=== PATIENT | male | born 1970 | race Caucasian/White ===

== ENCOUNTER → 2019-11-16 12:11 | Outpatient (BNVA) | payer MEDICAID, SELFPAY | PROVIDERS: Family Provider Nurse Practitioner Family; Visit Provider Nurse Practitioner Family | DX: I10 Essential (primary) hypertension (principal); G47.33 Obstructive sleep apnea (adult) (pediatric); F41.8 Other specified anxiety disorders; E11.65 Type 2 diabetes mellitus with hyperglycemia; Z79.4 Long term (current) use of insulin; K21.9 Gastro-esophageal reflux disease without esophagitis; E78.5 Hyperlipidemia, unspecified; M15.9 Polyosteoarthritis, unspecified; N39.43 Post-void dribbling; R07.89 Other chest pain; G62.9 Polyneuropathy, unspecified | CPT/HCPCS: 80053; 80061; 82044; 83036; 84443; 85025; G0103 ==

== ENCOUNTER → 2020-04-25 10:04 | Outpatient (BNVA) | payer MEDICAID, SELFPAY | PROVIDERS: Family Provider Nurse Practitioner Family; Visit Provider Psychiatry & Neurology Psychiatry | DX: F33.2 Major depressive disorder, recurrent severe without psychotic features (principal); F41.1 Generalized anxiety disorder; F43.10 Post-traumatic stress disorder, unspecified | CPT/HCPCS: 99214 ==

== ENCOUNTER 2021-04-20 23:57 | Emergency (ER) | payer MEDICAID, SELFPAY ==
[2020-04-25 13:32] VITALS: BP 118/73; BMI 23.8
[2021-04-21 00:08] VITALS: BP 132/83; PULSE 102; RESP 19; TEMP 36.8; O2SAT 97; BMI 22.8
--- NOTE | 2021-04-21 00:11 | ED_ITS ---
Documented by User: XENIA Cox 04/21/21 01:45 HPI - Skin/Abscess/Foreign Bdy General: Chief complaint: Skin/Abscess/Foreign Body Stated complaint: abscess on r inner thigh Time Seen by Provider: 04/21/21 00:11 History of Present Illness: HPI narrative: 51-year-old male patient comes in today with tenderness and redness to the right thigh since yesterday. Patient reports yesterday that the wound started draining and he had increasing tenderness and redness today. Patient does have a history of diabetes. Patient appears nontoxic. Patient appears in moderate pain. Review of Systems General: Reports: 10 or more systems reviewed and unremarkable except in HPI and below Skin/Breast: Reports: erythema and skin tenderness [facility] ED PFSH: Medical History (Updated 04/21/21 @ 02:38 by Juan Hayes DO) Depression with anxiety Diabetes mellitus Generalized anxiety disorder GERD (gastroesophageal reflux disease) Hyperlipidemia Hypertension Major depressive disorder, recurrent severe without psychotic features RALPH (obstructive sleep apnea) Osteoarthritis Post-traumatic stress disorder, unspecified Family History Family/Other Diabetes Father Hypertension Social History (Updated 04/25/20 @ 10:41 by Kellen Raines LPN) Smoking and tobacco status: current every day smoker cigarettes Packs smoked per day: 0.5 Years cigarettes smoked: 34 and smokeless tobacco Smokeless tobacco user: snuff Smokeless tobacco details: 1 can per week Quit status (tobacco): not considering quitting Second hand smoke exposure: Yes Alcohol intake: never Lives independently: Yes Marital status: single service: No Current occupational status: employed History of recent travel: No Current gender identity: Male Special radha needs: No Agree to transfusion: Yes Physical Exam Const: COMMON NORMALS: no acute distress and patient oriented x3 GENERAL APPEARANCE: cooperative HENMT: COMMON NORMALS: normocephalic and Normal external nose present HEAD & SCALP: normal to inspection and normocephalic NOSE: Normal external nose present Eye: GENERAL EYE: appearance normal, both eyes and all related structures Neck/C-Spine: COMMON NORMALS: full ROM Chest: COMMONS NORMALS: normal inspection of the chest Resp: COMMON NORMALS: normal respiratory effort EFFORT & INSPECTION: Yes able to speak in complete sentences Cardio: COMMON NORMALS: regular rate and regular rhythm RATE: regular rate RHYTHM: regular rhythm GI: COMMON NORMALS: non-tender : COMMON NORMALS: Yes no CVA tenderness BLADDER/KIDNEY EXAM: Yes no CVA tenderness Back/Pelvis: COMMON NORMALS: no CVA tenderness and thoracic and lumbar spine normal to inspection Extremity: COMMON NORMALS: normal to inspection Neuro: COMMON NORMALS: patient oriented x3 and moves all extremities Psych: COMMON NORMALS: mental status grossly normal and cooperative Skin: NARRATIVE SKIN EXAM: Right inner thigh there is an area approximately 12 cm of redness with a centralized punctate lesion with approximately 4 cm of induration surrounding the lesion. Patient reported that the wound has been oozing some purulent drainage earlier today. No fluctuance or expressible fluid is noted from the wound at this time. Course Vital Signs: Vital signs: Vital Signs Temperature 98.3 F 04/21/21 02:56 Pulse Rate 95 04/21/21 02:56 Respiratory Rate 16 04/21/21 02:56 Blood Pressure 133/82 04/21/21 02:56 Pulse Oximetry 96 04/21/21 02:56 MDM - Skin/Abscess/Foreign Bdy MDM Narrative: Medical decision making narrative: 51-year-old male patient comes in with pain and tenderness to the right inner thigh. On exam there is a area of redness with a centralized lesion that has been draining some purulent fluid. Differential diagnosis includes cellulitis, abscess, necrotizing fasciitis. No signs of severe illnesses noted at this time. We will give patient due to his history of diabetes both Augmentin and doxycycline to cover for MRSA and for strep. Patient does have an allergy to Bactrim. Blood cultures were collected and laboratory values noted 18,000 white count, blood glucose was 572, anion gap was normal, sodium was 122 uncorrected. Patient was given 1 L of IV fluid and 10 units of subcu NovoLog insulin. Dr. Hayes assumed care of my patient on my end of shift to monitor patient until discharge. Lab Data: Labs: Lab Results 04/21/21 04/21/21 04/21/21 Range/Units 00:38 00:38 00:38 WBC 18.0 H (4.0-10.0) 10^3/ uL RBC 5.40 H (4.1-5.3) 10^6/u L Hgb 15.4 (11.7-16.6) g/dL Hct 45.4 (42.0-52.0) % MCV 84.1 (80-94) fl MCH 28.5 (28.0-34.0) pg MCHC 33.9 (30.0-36.0) g/dL RDW 12.3 (12.1-15.1) % Plt Count 236 (130-400) 10^3/c mm MPV 10.3 (7.4-10.4) fL Neut % (Auto) 76.9 % Lymph % (Auto) 13.9 % [place] % (Auto) 7.7 % Eos % (Auto) 0.6 % Baso % (Auto) 0.3 % Neut # (Auto) 13.84 H (1.8-7.7) 10^3/u L Lymph # (Auto) 2.5 (0.8-4.8) 10^3/u L [place] # (Auto) 1.4 H (0.2-0.9) 10^3/u L Eos # (Auto) 0.1 (0.0-0.8) 10^3/u L Baso # (Auto) 0.1 (0.0-0.1) 10^3/u L Nucleated RBC % (a uto) 0 % Nucleated RBCs # 0.0 /100WBC Sodium 122 L (136-145) mmol/L Potassium 4.1 (3.5-5.1) mmol/L Chloride 86 L (98-107) mmol/L Carbon Dioxide 25 (22-29) mmol/L Anion Gap 15.1 (5-19) BUN 13 (6-20) mg/dL Creatinine 0.5 L (0.7-1.2) mg/dL GFR Calculation 175.3 H (90-130) mL/min Glucose 572 H* (65-115) mg/dL Calculated Osmolal ity 280 L (285-295) mOsm/k g Lactic Acid 1.6 (0.5-2.2) mmol/L Calcium 8.8 (8.5-10.5) mg/dL Total Bilirubin 0.3 (0.15-1.2) mg/dL AST 16 (0-40) U/L ALT 37 (0-41) U/L Alkaline Phosphata se 148 H (40-130) IU/L Total Protein 7.0 (6.6-8.7) g/dL Albumin 3.4 L (3.5-5.2) g/dL Globulin 3.6 (1.3-4.6) g/dL Discharge Plan Discharge Patient Disposition: Home Clinical Impression: Abscess or cellulitis of thigh, Acute hyperglycemia Condition: Stable Prescriptions: New Augmentin 875-125 mg tablet 1 tab PO BID Qty: 14 RF: 0 doxycycline hyclate 100 mg tablet 100 mg PO BID 7 Days Qty: 14 RF: 0 hydrocodone-acetaminophen 5-325 mg tablet 1 tab PO Q6H PRN (Reason: pain (scale score 7-10)) Qty: 12 RF: 0 No Action (DME) cpap Qty: 1 RF: 0 lorazepam 0.5 mg tablet 0.5 mg PO .qhs PRN (Reason: anxiety) 30 Days Qty: 30 RF: 3 albuterol sulfate [ProAir HFA] 90 mcg/actuation HFA aerosol inhaler 2 puff INHALATION Q6H PRN (Reason: shortness of breath or wheezing) Qty: 8.5 RF: 0 metformin 500 mg tablet 1,000 mg PO BID Qty: 120 RF: 0 diclofenac sodium 50 mg tablet,delayed release (DR/EC) 50 mg PO BID Qty: 60 RF: 0 tizanidine 4 mg tablet 4 mg PO TID PRN (Reason: muscle spasticity) Qty: 90 RF: 0 (DME) pen needle, diabetic [1st Tier Unifine Pentips] 32 gauge x 5/32 needle See Rx Instructions .ROUTE .MEDSUPPLY Qty: 100 RF: 1 gabapentin [Neurontin] 800 mg tablet 800 mg PO TID 30 Days Qty: 90 RF: 2 lisinopril 10 mg tablet See Rx Instructions .ROUTE .COMPLEX Qty: 30 RF: 0 fenofibrate nanocrystallized 145 mg tablet See Rx Instructions .ROUTE .COMPLEX Qty: 30 RF: 0 chlorthalidone 25 mg tablet See Rx Instructions .ROUTE .COMPLEX Qty: 30 RF: 0 loratadine 10 mg tablet See Rx Instructions .ROUTE .COMPLEX Qty: 30 RF: 0 pravastatin 20 mg tablet See Rx Instructions .ROUTE .COMPLEX Qty: 30 RF: 0 omeprazole 20 mg capsule,delayed release(DR/EC) See Rx Instructions .ROUTE .COMPLEX Qty: 30 RF: 0 insulin aspart U-100 [Novolog Flexpen U-100 Insulin] 100 unit/mL (3 mL) insulin pen 20 unit SUBCUT TID Qty: 15 RF: 3 Discharge Orders: Discharge ED (Routine); Ordered 04/21/21 Ordered By: Juan Hayes Discharge Diet: Usual diet Discharge Activity: Increase activity as tolerated Patient Instructions: Cellulitis (ED), Opioid Safety Activity Restrictions/Additional Instructions: Home and rest. Use warm moist packs to the area. Drink plenty of water with antibiotics. Monitor for worsening symptoms. Return to the ER for increasing redness and swelling to the extremity, high fever greater than 100.4, or new concerns. Follow-up with primary care in 3 days. Stand Alone Forms: Work/School Release Coding Level of Care Code ED Manager Cosmetics for Chg Fwd Exam Comprehensive Documented by User: Juan Hayes DO 04/21/21 04:41 HPI - Skin/Abscess/Foreign Bdy General: Chief complaint: Skin/Abscess/Foreign Body Stated complaint: abscess on r inner thigh Time Seen by Provider: 04/21/21 00:11 [facility] ED PFSH: Medical History (Updated 04/21/21 @ 02:38 by Juan Hayes DO) Depression with anxiety Diabetes mellitus Generalized anxiety disorder GERD (gastroesophageal reflux disease) Hyperlipidemia Hypertension Major depressive disorder, recurrent severe without psychotic features RALPH (obstructive sleep apnea) Osteoarthritis Post-traumatic stress disorder, unspecified Family History Family/Other Diabetes Father Hypertension Social History (Updated 04/25/20 @ 10:41 by Kellen Raines LPN) Smoking and tobacco status: current every day smoker cigarettes Packs smoked per day: 0.5 Years cigarettes smoked: 34 and smokeless tobacco Smokeless tobacco user: snuff Smokeless tobacco details: 1 can per week Quit status (tobacco): not considering quitting Second hand smoke exposure: Yes Alcohol intake: never Lives independently: Yes Marital status: single service: No Current occupational status: employed History of recent travel: No Current gender identity: Male Special radha needs: No Agree to transfusion: Yes Course Vital Signs: Vital signs: Vital Signs Temperature 98.3 F 04/21/21 02:56 Pulse Rate 95 04/21/21 02:56 Respiratory Rate 16 04/21/21 02:56 Blood Pressure 133/82 04/21/21 02:56 Pulse Oximetry 96 04/21/21 02:56 MDM - Skin/Abscess/Foreign Bdy MDM Narrative: Medical decision making narrative: 51-year-old male patient seen by XENIA Stafford. I agree with his history, evaluation, and treatment. This patient has the cellulitic abscess of the thigh with acute hyperglycemia. He was given fluid and insulin here. There is no ketoacidosis. His sugar came down nicely after IV insulin. He has been given IV antibiotics, and will follow with p.o. antibiotics for his abscess. Lab Data: Labs: Lab Results 04/21/21 04/21/21 04/21/21 Range/Units 00:38 00:38 00:38 WBC 18.0 H (4.0-10.0) 10^3/ uL RBC 5.40 H (4.1-5.3) 10^6/u L Hgb 15.4 (11.7-16.6) g/dL Hct 45.4 (42.0-52.0) % MCV 84.1 (80-94) fl MCH 28.5 (28.0-34.0) pg MCHC 33.9 (30.0-36.0) g/dL RDW 12.3 (12.1-15.1) % Plt Count 236 (130-400) 10^3/c mm MPV 10.3 (7.4-10.4) fL Neut % (Auto) 76.9 % Lymph % (Auto) 13.9 % [place] % (Auto) 7.7 % Eos % (Auto) 0.6 % Baso % (Auto) 0.3 % Neut # (Auto) 13.84 H (1.8-7.7) 10^3/u L Lymph # (Auto) 2.5 (0.8-4.8) 10^3/u L [place] # (Auto) 1.4 H (0.2-0.9) 10^3/u L Eos # (Auto) 0.1 (0.0-0.8) 10^3/u L Baso # (Auto) 0.1 (0.0-0.1) 10^3/u L Nucleated RBC % (a uto) 0 % Nucleated RBCs # 0.0 /100WBC Sodium 122 L (136-145) mmol/L Potassium 4.1 (3.5-5.1) mmol/L Chloride 86 L (98-107) mmol/L Carbon Dioxide 25 (22-29) mmol/L Anion Gap 15.1 (5-19) BUN 13 (6-20) mg/dL Creatinine 0.5 L (0.7-1.2) mg/dL GFR Calculation 175.3 H (90-130) mL/min Glucose 572 H* (65-115) mg/dL Calculated Osmolal ity 280 L (285-295) mOsm/k g Lactic Acid 1.6 (0.5-2.2) mmol/L Calcium 8.8 (8.5-10.5) mg/dL Total Bilirubin 0.3 (0.15-1.2) mg/dL AST 16 (0-40) U/L ALT 37 (0-41) U/L Alkaline Phosphata se 148 H (40-130) IU/L Total Protein 7.0 (6.6-8.7) g/dL Albumin 3.4 L (3.5-5.2) g/dL Globulin 3.6 (1.3-4.6) g/dL Discharge Plan Discharge Patient Disposition: Home Clinical Impression: Abscess or cellulitis of thigh, Acute hyperglycemia Condition: Stable Prescriptions: New Augmentin 875-125 mg tablet 1 tab PO BID Qty: 14 RF: 0 doxycycline hyclate 100 mg tablet 100 mg PO BID 7 Days Qty: 14 RF: 0 hydrocodone-acetaminophen 5-325 mg tablet 1 tab PO Q6H PRN (Reason: pain (scale score 7-10)) Qty: 12 RF: 0 No Action (DME) cpap Qty: 1 RF: 0 lorazepam 0.5 mg tablet 0.5 mg PO .qhs PRN (Reason: anxiety) 30 Days Qty: 30 RF: 3 albuterol sulfate [ProAir HFA] 90 mcg/actuation HFA aerosol inhaler 2 puff INHALATION Q6H PRN (Reason: shortness of breath or wheezing) Qty: 8.5 RF: 0 metformin 500 mg tablet 1,000 mg PO BID Qty: 120 RF: 0 diclofenac sodium 50 mg tablet,delayed release (DR/EC) 50 mg PO BID Qty: 60 RF: 0 tizanidine 4 mg tablet 4 mg PO TID PRN (Reason: muscle spasticity) Qty: 90 RF: 0 (DME) pen needle, diabetic [1st Tier Unifine Pentips] 32 gauge x 5/32 needle See Rx Instructions .ROUTE .MEDSUPPLY Qty: 100 RF: 1 gabapentin [Neurontin] 800 mg tablet 800 mg PO TID 30 Days Qty: 90 RF: 2 lisinopril 10 mg tablet See Rx Instructions .ROUTE .COMPLEX Qty: 30 RF: 0 fenofibrate nanocrystallized 145 mg tablet See Rx Instructions .ROUTE .COMPLEX Qty: 30 RF: 0 chlorthalidone 25 mg tablet See Rx Instructions .ROUTE .COMPLEX Qty: 30 RF: 0 loratadine 10 mg tablet See Rx Instructions .ROUTE .COMPLEX Qty: 30 RF: 0 pravastatin 20 mg tablet See Rx Instructions .ROUTE .COMPLEX Qty: 30 RF: 0 omeprazole 20 mg capsule,delayed release(DR/EC) See Rx Instructions .ROUTE .COMPLEX Qty: 30 RF: 0 insulin aspart U-100 [Novolog Flexpen U-100 Insulin] 100 unit/mL (3 mL) insulin pen 20 unit SUBCUT TID Qty: 15 RF: 3 Discharge Orders: Discharge ED (Routine); Ordered 04/21/21 Ordered By: Juan Hayes Discharge Diet: Usual diet Discharge Activity: Increase activity as tolerated Patient Instructions: Cellulitis (ED), Opioid Safety Activity Restrictions/Additional Instructions: Home and rest. Use warm moist packs to the area. Drink plenty of water with antibiotics. Monitor for worsening symptoms. Return to the ER for increasing redness and swelling to the extremity, high fever greater than 100.4, or new co ncerns. Follow-up with primary care in 3 days. Stand Alone Forms: Work/School Release Coding Level of Care Code ED Manager Cosmetics for Wilbur Fwd Exam Comprehensive
[2021-04-21 00:48] LABS: Basophils # 0.1 10^3/uL (0.0-0.1); Basophils % 0.3 %; Eosinophils # 0.1 10^3/uL (0.0-0.8); Eosinophils % 0.6 %; Hematocrit 45.4 % (42.0-52.0); Hemoglobin 15.4 g/dL (11.7-16.6); Lymphocytes # 2.5 10^3/uL (0.8-4.8); Lymphocytes % 13.9 %; Mean Corpuscular HGB Conc 33.9 g/dL (30.0-36.0); Mean Corpuscular Hemoglobin 28.5 pg (28.0-34.0); Mean Corpuscular Volume 84.1 fl (80-94); Mean Platelet Volume 10.3 fL (7.4-10.4); Monocytes # 1.4 10^3/uL (0.2-0.9); Monocytes % 7.7 %; Neutrophils # 13.84 10^3/uL (1.8-7.7); Neutrophils % 76.9 %; Nucleated Red Blood Cells % 0 %; Platelet Count 236 10^3/cmm (130-400); Red Cell Distribution Width 12.3 % (12.1-15.1)
[2021-04-21] MEDS: ondansetron 2 mg/ML SDV 2 mL 4 MG IVP (00:56)
[2021-04-21 00:57] VITALS: RESP 16
[2021-04-21] MEDS: doxycycline 100 mg Tablet PO (00:57)
[2021-04-21] MEDS: morphine 4 mg/mL SDV 1 mL IVP (00:57)
[2021-04-21] MEDS: cefTRIAXone 1,000 MG in sodium chloride 0.9% (plus) 50 ML 100 MG IV (00:58)
[2021-04-21 01:05] LABS: Alanine Aminotransferase 37 U/L (0-41); Albumin Level 3.4 g/dL (3.5-5.2); Alkaline Phosphatase 148 IU/L (40-130); Anion Gap 15.1 (5-19); Aspartate Amino Transferase 16 U/L (0-40); Blood Urea Nitrogen 13 mg/dL (6-20); Calcium 8.8 mg/dL (8.5-10.5); Carbon Dioxide 25 mmol/L (22-29); Chloride 86 mmol/L (98-107); Globulin 3.6 g/dL (1.3-4.6); Glomerular Filtration Rate 175.3 mL/min (90-130); Lactic Sepsis W/Reflex 1.6 mmol/L (0.5-2.2); Osmolality Calculated 280 mOsm/kg (285-295); Potassium 4.1 mmol/L (3.5-5.1); Sodium 122 mmol/L (136-145); Total Bilirubin 0.3 mg/dL (0.15-1.2)
[2021-04-21 01:08] VITALS: BP 124/78; PULSE 80; RESP 16; TEMP 36.8; O2SAT 95
[2021-04-21 01:08] LABS: Glucose 572 mg/dL (65-115)
[2021-04-21] MEDS: sodium chloride 0.9% 1,000 ML 999 ML IV (01:29)
[2021-04-21 02:56] VITALS: BP 133/82; PULSE 95; RESP 16; TEMP 36.8; O2SAT 96
[2021-04-21 06:59] LABS: Glucose Point of Care 402 mg/dL (70-110)
== END 2021-04-21 02:58 | disposition home or self-care (01) ==
PROVIDERS: Emergency Provider Nurse Practitioner Family
DX: L02.415 Cutaneous abscess of right lower limb (principal); E11.65 Type 2 diabetes mellitus with hyperglycemia; E78.5 Hyperlipidemia, unspecified; I10 Essential (primary) hypertension; F17.210 Nicotine dependence, cigarettes, uncomplicated; Z79.4 Long term (current) use of insulin; Z88.2 Allergy status to sulfonamides
CPT/HCPCS: 36416; 80053; 82962; 83605; 85025; 87040; 96365; 96372; 96375; 99284; J0696; J1815; J2270; J2405; J7030

== ENCOUNTER 2023-04-28 18:43 | Emergency (ER) | payer MEDICAID, SELFPAY ==
[2023-04-27 12:46] VITALS: BP 118/73; BMI 23.8
[2023-04-28 18:44] VITALS: BP 149/98; PULSE 80; RESP 18; TEMP 36.7; O2SAT 97; BMI 20.5
--- NOTE | 2023-04-28 18:56 | XRR_ITS ---
PROCEDURE INFORMATION: Exam: XR Chest Exam date and time: 04/28/2023 6:59 PM Age: 53 years old Clinical indication: Shortness of breath; Additional info: SOB TECHNIQUE: Imaging protocol: Radiologic exam of the chest. Views: 1 view. COMPARISON: CR XR chest 1V [id number] 12/01/2018 3:46 PM FINDINGS: Lungs: Evidence for mild benign healed granulomatous disease around the hilar region and with tiny calcified granuloma left upper lobe. Findings are unchanged from prior exam. No focal infiltrate or consolidation. Pleural spaces: Unremarkable. No pleural effusion. No pneumothorax. Heart/Mediastinum: Unremarkable. No cardiomegaly. Bones/joints: Visualized osseous structures show no acute abnormality. Other findings: No significant change with prior exam. XR/XR chest 1V portable [id number] IMPRESSION: Stable chest, without acute cardiopulmonary abnormality.
--- NOTE | 2023-04-28 19:01 | W.ED.RECABL ---
HPI - Recheck/Abnormal Lab/Rx General: Chief Complaint: Recheck/Abnormal Lab/Rx Stated Complaint: DKA Time Seen by Provider: 04/28/23 18:44 Source: patient and EMS Mode of arrival: EMS Limitations: no limitations History of Present Illness: 53-year-old male has a history of type 2 diabetes he states he is currently homeless he has not been taking any of his diabetic meds for 9 months he called EMS because he folic his blood sugar may be high it was 550s with EMS he also states he had chigger bites to his lower feet denies any fevers denies any pain anywhere Review of Systems Const: Denies: fever(s) or chills ENMT: Denies: throat pain or dental pain Card: Denies: chest pain Resp: Denies: dyspnea GI: Denies: abdominal pain, nausea, vomiting or diarrhea Musc: Denies: neck pain or back pain Skin/Breast: Reports: pruritus; Denies: rash Neuro: Denies: headache(s) PFSH ED PFSH: Medical History Depression with anxiety Diabetes mellitus Generalized anxiety disorder GERD (gastroesophageal reflux disease) Hyperlipidemia Hypertension Major depressive disorder, recurrent severe without psychotic features RALPH (obstructive sleep apnea) Osteoarthritis Post-traumatic stress disorder, unspecified Family History Family/Other Diabetes Father Hypertension Social History Smoking and tobacco status: current every day smoker cigarettes Packs smoked per day: 0.5 Years cigarettes smoked: 34 and smokeless tobacco Smokeless tobacco user: snuff Smokeless tobacco details: 1 can per week Quit status (tobacco): not considering quitting Second hand smoke exposure: Yes Alcohol intake: never Substance/Drug Use: never Lives independently: Yes Marital status: single service: No Current occupational status: employed Current gender identity: Male Special radha needs: No Agree to transfusion: Yes Physical Exam Const: COMMON NORMALS: no acute distress, patient oriented x3 and healthy appearing HENMT: COMMON NORMALS: normocephalic and atraumatic HEAD & SCALP: normocephalic and atraumatic Eye: COMMON NORMALS: Equal, round and reactive pupils present and EOMs intact bilaterally PUPIL: Yes Equal, round and reactive pupils present Neck/C-Spine: COMMON NORMALS: full ROM and supple Chest: COMMONS NORMALS: normal inspection of the chest and normal palpation of entire chest wall Resp: COMMON NORMALS: normal respiratory effort, No retractions, No use of accessory muscles and clear to auscultation bilaterally AUSCULTATION: clear to auscultation bilaterally Cardio: COMMON NORMALS: regular rate, regular rhythm and No murmurs present (Cardio) RATE: regular rate RHYTHM: regular rhythm GI: COMMON NORMALS: Normal to inspection, nondistended, normoactive bowel sounds present, Soft to palpation, non-tender and no masses PALPATION: Yes Soft to palpation Extremity: COMMON NORMALS: full ROM OTHER: multiple bug bites to lower ext Neuro: COMMON NORMALS: patient oriented x3, moves all extremities and no focal motor deficits Psych: COMMON NORMALS: mental status grossly normal, Normal thought process present and cooperative THOUGHT PROCESS: Normal thought process present Skin: COMMON NORMALS: no rashes or lesions noted and no wounds GENERAL SKIN EXAM: no rashes or lesions noted Course Vital Signs: Vital signs: Vital Signs Temperature 98.1 F 04/28/23 18:44 Pulse Rate 69 04/28/23 20:26 Respiratory Rate 18 04/28/23 20:26 Blood Pressure 149/98 04/28/23 20:26 Pulse Oximetry 96 04/28/23 20:26 Oxygen Delivery Me thod Nasal Cannula 04/28/23 18:44 Oxygen Flow Rate 2 04/28/23 18:44 MDM - Recheck/Abnormal Lab/Rx Medical Decision Making Patient presents here with hyperglycemia his blood sugar here is improved he is not DKA we will refill his meds he is stable for discharge he is follow-up with PCP and return if worsening Medical Records I reviewed the patient's medical records. Lab Data I reviewed the patient's lab results. 04/28/23 19:01 04/28/23 19:01 Radiology Impressions Chest X-Ray 04/28/23 18:56 IMPRESSION: Stable chest, without acute cardiopulmonary abnormality. Laboratory Results WBC 8.83 10^3/uL (3.29-11.43) 04/28/23 19:01 RBC 4.85 10^6/uL (3.85-5.65) 04/28/23 19:01 Hgb 13.60 g/dL (11.27-16.99) 04/28/23 19: Hct 39.8 % (37-53) 04/28/23 19: MCV 82.1 fl (82-101) 04/28/23 19: MCH 28.0 pg (27-33) 04/28/23 19: MCHC 34.2 g/dL (30-55) 04/28/23 19: RDW 13.1 % (12.1-15.1) 04/28/23 19: Plt Count 250 10^3/cmm (157-399) 04/28/23 19: MPV 10.4 fL (7.4-10.4) 04/28/23 19:01 Neut % (Auto) 54.0 % 04/28/23 19: Lymph % (Auto) 35.0 % 04/28/23 19: [place] % (Auto) 6.9 % 04/28/23 19: Eos % (Auto) 3.3 % 04/28/23 19: Baso % (Auto) 0.6 % 04/28/23 19:01 Neut # (Auto) 4.77 10^3/uL (1.8-7.7) 04/28/23 19:01 Lymph # (Auto) 3.1 10^3/uL (0.8-4.8) 04/28/23 19:01 [place] # (Auto) 0.6 10^3/uL (0.2-0.9) 04/28/23 19:01 Eos # (Auto) 0.3 10^3/uL (0.0-0.8) 04/28/23 19:01 Baso # (Auto) 0.1 10^3/uL (0.0-0.1) 04/28/23 19: Nucleated RBC % (auto) 0 % 04/28/23 19: Nucleated RBCs # 0.0 /100WBC 04/28/23 19:01 Specimen Type Arterial 04/28/23 18:50 Sample Site Radial, left 04/28/23 18:50 ABG pH 7.48 (7.35-7.45) H 04/28/23 18:50 ABG pCO2 37.3 mmHg (35-45) 04/28/23 18:50 ABG pO2 85.2 mmHg (80.0-100.0) 04/28/23 18:50 ABG HCO3 27.6 mmol/L (22-26) H 04/28/23 18:50 ABG Base Excess 4.0 mmol/L (-2.0-2.0) H 04/28/23 18:50 Victor M Test Pos 04/28/23 18:50 Hematocrit 42.8 % (42-52) 04/28/23 18:50 O2 Delivery Device Nc 04/28/23 18:50 O2 Liters/Min 2.0 % 04/28/23 18:50 Flexographic Press Operator ID [place] 04/28/23 18:50 Sodium 135 mmol/L (136-145) L 04/28/23 19:01 Potassium 4.2 mmol/L (3.5-5.1) 04/28/23 19:01 Chloride 99 mmol/L (98-107) 04/28/23 19:01 Carbon Dioxide 26 mmol/L (22-29) 04/28/23 19:01 Anion Gap 14.2 (5-19) 04/28/23 19:01 BUN 12 mg/dL (6-20) 04/28/23 19:01 Creatinine 0.5 mg/dL (0.7-1.2) L 04/28/23 19:01 GFR Calculation 173.9 mL/min (90-130) H 04/28/23 19:01 Glucose 424 mg/dL (65-115) H 04/28/23 19:01 POC Glucose 228 mg/dL (70-110) H 04/28/23 20:15 Calculated Osmolality 298 mOsm/kg (285-295) H 04/28/23 19:01 Calcium 8.2 mg/dL (8.5-10.5) L 04/28/23 19:01 Total Bilirubin 0.2 mg/dL (0.15-1.2) 04/28/23 19:01 AST 17 U/L (0-40) 04/28/23 19:01 ALT 26 U/L (0-41) 04/28/23 19:01 Alkaline Phosphatase 97 U/L (40-130) 04/28/23 19:01 Total Protein 6.2 g/dL (6.6-8.7) L 04/28/23 19:01 Albumin 3.5 g/dL (3.5-5.2) 04/28/23 19:01 Globulin 2.7 g/dL (1.3-4.6) 04/28/23 19:01 Serum Ketones Negative (Negative) 04/28/23 19:01 Discharge Plan Discharge Patient Disposition: Home Clinical Impression: Hyperglycemia Condition: Stable Prescriptions: Continued metformin 500 mg tablet 1,000 mg PO BID Qty: 120 0RF lisinopril 10 mg tablet See Rx Instructions .ROUTE .COMPLEX Qty: 30 0RF Dose Instruction: TAKE ONE TABLET BY MOUTH DAILY Rx Instructions: TAKE ONE TABLET BY MOUTH DAILY insulin aspart U-100 100 unit/mL (3 mL) insulin pen 20 unit SUBCUT TID Qty: 15 3RF No Action (DME) cpap Qty: 1 0RF Rx Instructions: As directed lorazepam 0.5 mg tablet 0.5 mg PO .qhs PRN (Reason: anxiety) 30 Days Qty: 30 3RF albuterol sulfate [ProAir HFA] 90 mcg/actuation HFA aerosol inhaler 2 puff INHALATION Q6H PRN (Reason: shortness of breath or wheezing) Qty: 8.5 0RF Rx Instructions: needs appt for visit and lab diclofenac sodium 50 mg tablet,delayed release (DR/EC) 50 mg PO BID Qty: 60 0RF tizanidine 4 mg tablet 4 mg PO TID PRN (Reason: muscle spasticity) Qty: 90 0RF (DME) pen needle, diabetic [1st Tier Unifine Pentips] 32 gauge x 5/32 needle See Rx Instructions .ROUTE .MEDSUPPLY Qty: 100 1RF Rx Instructions: 1 qid to give insulin gabapentin [Neurontin] 800 mg tablet 800 mg PO TID 30 Days Qty: 90 2RF fenofibrate nanocrystallized 145 mg tablet See Rx Instructions .ROUTE .COMPLEX Qty: 30 0RF Dose Instruction: TAKE ONE TABLET BY MOUTH DAILY Rx Instructions: TAKE ONE TABLET BY MOUTH DAILY chlorthalidone 25 mg tablet See Rx Instructions .ROUTE .COMPLEX Qty: 30 0RF Dose Instruction: TAKE ONE TABLET BY MOUTH DAILY Rx Instructions: TAKE ONE TABLET BY MOUTH DAILY loratadine 10 mg tablet See Rx Instructions .ROUTE .COMPLEX Qty: 30 0RF Dose Instruction: TAKE ONE TABLET BY MOUTH DAILY Rx Instructions: TAKE ONE TABLET BY MOUTH DAILY pravastatin 20 mg tablet See Rx Instructions .ROUTE .COMPLEX Qty: 30 0RF Dose Instruction: TAKE ONE TABLET BY MOUTH DAILY Rx Instructions: TAKE ONE TABLET BY MOUTH DAILY omeprazole 20 mg capsule,delayed release(DR/EC) See Rx Instructions .ROUTE .COMPLEX Qty: 30 0RF Dose Instruction: TAKE ONE CAPSULE BY MOUTH DAILY Rx Instructions: TAKE ONE CAPSULE BY MOUTH DAILY Augmentin 875-125 mg tablet 1 tab PO BID Qty: 14 0RF hydrocodone-acetaminophen 5-325 mg tablet 1 tab PO Q6H PRN (Reason: pain (scale score 7-10)) Qty: 12 0RF Discharge Orders: Discharge ED (Routine); Ordered 04/28/23 Ordered By: Shira Powell Discharge Diet: Advance as tolerated Discharge Activity: Resume usual activity Patient Instructions: Diabetic Hyperglycemia (ED) Coding Level of Care Code ED Health Actuary for Wilbur Marino
[2023-04-28 19:02] LABS: ABG PCO2 37.3 mmHg (35-45); ABG PH Result 7.48 (7.35-7.45); Arterial Blood Gas Hematocrit 42.8 % (42-52); Blood Gas Allen Test Pos; Blood Gas Operator Identificat WALCI; Blood Gas Sample Site Radial, left; Blood Gas Sample Type Arterial; HCO3 ABG 27.6 mmol/L (22-26); Oxygen Device NC; PO2 ABG 85.2 mmHg (80.0-100.0)
[2023-04-28] MEDS: insulin regular-human 100 units/1 mL 10 UNIT IVP (19:06)
[2023-04-28] MEDS: ondansetron 2 mg/ML SDV 2 mL 4 MG IVP (19:06)
[2023-04-28] MEDS: sodium chloride 0.9% 1,000 ML 999 ML IV (19:06)
[2023-04-28 19:10] LABS: Basophils # 0.1 10^3/uL (0.0-0.1); Basophils % 0.6 %; Eosinophils # 0.3 10^3/uL (0.0-0.8); Eosinophils % 3.3 %; Hematocrit 39.8 % (37-53); Lymphocytes # 3.1 10^3/uL (0.8-4.8); Mean Corpuscular HGB Conc 34.2 g/dL (30-55); Mean Corpuscular Volume 82.1 fl (82-101); Mean Platelet Volume 10.4 fL (7.4-10.4); Monocytes # 0.6 10^3/uL (0.2-0.9); Monocytes % 6.9 %; Neutrophils # 4.77 10^3/uL (1.8-7.7); Nucleated Red Blood Cells % 0 %; Platelet Count 250 10^3/cmm (157-399); Red Blood Count 4.85 10^6/uL (3.85-5.65); Red Cell Distribution Width 13.1 % (12.1-15.1); White Blood Count 8.83 10^3/uL (3.29-11.43)
[2023-04-28 19:23] LABS: Glucose Point of Care 369 mg/dL (70-110)
[2023-04-28 19:29] LABS: Ketone (Acetest) Serum Negative (Negative)
[2023-04-28 19:31] LABS: Alanine Aminotransferase 26 U/L (0-41); Albumin Level 3.5 g/dL (3.5-5.2); Alkaline Phosphatase 97 U/L (40-130); Anion Gap 14.2 (5-19); Aspartate Amino Transferase 17 U/L (0-40); Blood Urea Nitrogen 12 mg/dL (6-20); Calcium 8.2 mg/dL (8.5-10.5); Carbon Dioxide 26 mmol/L (22-29); Chloride 99 mmol/L (98-107); Globulin 2.7 g/dL (1.3-4.6); Glomerular Filtration Rate 173.9 mL/min (90-130); Glucose 424 mg/dL (65-115); Osmolality Calculated 298 mOsm/kg (285-295); Potassium 4.2 mmol/L (3.5-5.1); Sodium 135 mmol/L (136-145); Total Bilirubin 0.2 mg/dL (0.15-1.2); Total Protein 6.2 g/dL (6.6-8.7)
[2023-04-28 20:18] LABS: Glucose Point of Care 228 mg/dL (70-110)
[2023-04-28 20:26] VITALS: BP 149/98; PULSE 69; RESP 18; O2SAT 96
--- NOTE | 2023-04-29 09:36 | DCPLANNER ---
operations research group manager called patient due to no primary care physician - rehabilitation caseworker called phone number [phone] - number is no longer in service.
== END 2023-04-28 20:33 | disposition home or self-care (01) ==
PROVIDERS: Emergency Provider Emergency Medicine
DX: E11.65 Type 2 diabetes mellitus with hyperglycemia (principal); E78.5 Hyperlipidemia, unspecified; I10 Essential (primary) hypertension; F17.210 Nicotine dependence, cigarettes, uncomplicated
CPT/HCPCS: 36415; 36416; 36600; 71045; 80053; 82009; 82803; 82962; 85025; 96374; 96375; 99284; J1815; J2405; J7030

== ENCOUNTER → 2023-05-03 10:18 | Outpatient (BNVA) | payer MEDICAID, SELFPAY ==
[2023-04-27 12:46] VITALS: BP 118/73; BMI 23.8
== END ==
PROVIDERS: PCP Nurse Practitioner Family; Visit Provider Nurse Practitioner Family
DX: I10 Essential (primary) hypertension (principal); E11.9 Type 2 diabetes mellitus without complications; E78.5 Hyperlipidemia, unspecified; G62.9 Polyneuropathy, unspecified; Z12.5 Encounter for screening for malignant neoplasm of prostate; G47.33 Obstructive sleep apnea (adult) (pediatric); Z12.11 Encounter for screening for malignant neoplasm of colon; E11.65 Type 2 diabetes mellitus with hyperglycemia; Z79.4 Long term (current) use of insulin; B88.0 Other acariasis
CPT/HCPCS: 80053; 80061; 82607; 83036; 84443; 85025; G0103

== ENCOUNTER → 2023-05-25 07:56 | Outpatient (BNVA) | payer MEDICAID, SELFPAY ==
[2023-04-27 12:46] VITALS: BP 118/73; BMI 23.8
== END ==
PROVIDERS: PCP Nurse Practitioner Family; Visit Provider Surgery
DX: Z12.11 Encounter for screening for malignant neoplasm of colon (principal)
CPT/HCPCS: 99024; 99203

== ENCOUNTER → 2023-06-15 10:46 | Outpatient (BNVA) | payer MEDICAID, SELFPAY ==
[2023-04-27 12:46] VITALS: BP 118/73; BMI 23.8
== END ==
PROVIDERS: PCP Nurse Practitioner Family; Visit Provider Podiatrist Foot & Ankle Surgery
DX: B35.1 Tinea unguium (principal); I73.9 Peripheral vascular disease, unspecified; E11.65 Type 2 diabetes mellitus with hyperglycemia; Z79.4 Long term (current) use of insulin; G62.9 Polyneuropathy, unspecified; Z79.84 Long term (current) use of oral hypoglycemic drugs; E11.42 Type 2 diabetes mellitus with diabetic polyneuropathy
CPT/HCPCS: 11056; 11721; 99203

== ENCOUNTER 2023-06-21 13:38 | Outpatient (CLI) | payer MEDICAID, SELFPAY ==
[2023-04-27 12:46] VITALS: BP 118/73; BMI 23.8
== END 2023-06-21 13:39 | disposition home or self-care (01) ==
LOC: LAB 13:39
PROVIDERS: PCP Nurse Practitioner Family; Visit Provider Nurse Practitioner Family
DX: R19.5 Other fecal abnormalities (principal)
CPT/HCPCS: 82274

== ENCOUNTER 2023-07-01 08:54 | Day surgery (SDC) | payer MEDICAID, SELFPAY ==
[2023-04-27 12:46] VITALS: BP 118/73; BMI 23.8
--- NOTE | 2023-07-01 09:18 | ECG_ITS ---
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 Measurements Intervals [place] Rate: 66 P: 59 LA: 161 QRS: 94 QRSD: 93 T: 52 QT: 398 QTc: 420 Interpretive Statements SINUS RHYTHM POSSIBLE LEFT ATRIAL ENLARGEMENT [-0.1mV P-WAVE IN V1/V2] BORDERLINE RIGHT AXIS DEVIATION [QRS AXIS > 90] Compared to ECG 11/02/2017 11:13:42 No significant changes Electronically Signed On 07-01-2023 11:12:43 POULTRY CUTTER by Elia Morrison M.D. [id number]
[2023-07-01 09:21] VITALS: BP 147/101; PULSE 95; RESP 16; TEMP 36.4; O2SAT 97
[2023-07-01] MEDS: sodium chloride 0.9% 1,000 ML 30 ML IV (09:30)
[2023-07-01 09:33] LABS: Glucose Point of Care 181 mg/dL (70-110)
--- NOTE | 2023-07-01 09:43 | W.PM.OPSFHP ---
Same Day Surgery H&P Indication for Procedure/HPI DATE OF PROCEDURE: July 01, 2023 CHIEF COMPLAINT/INDICATIONFOR SURGICAL PROCEDURE: need for screening colonoscopy PREOP DIAGNOSIS: need for screening colonoscopy PLANNED PROCEDURE: Operation Date: 07/01/23 10:10 Proposed Procedures p 56903 colon G0121 screen colon A risk Z12.11(Not Applicable) - Malick Taveras MD Medications/Allergies* Home Medications Medication Instructions Recorded Confirmed Type loratadine 10 mg tablet 10 mg PO DAILY 06/30/23 07/01/23 History omeprazole 20 mg capsule,delayed 20 mg PO DAILY 06/30/23 07/01/23 History release triamcinolone acetonide 0.1 % 1 applic topical TID PRN Itching 06/30/23 07/01/23 History topical ointment Allergies/Adverse Reactions Allergy/AdvReac Type Severity Reaction Status Date / Time sulfamethoxazole Allergy Unknown Verified 06/30/23 10:22 [From Bactrim] trimethoprim [From Bactrim] Allergy Unknown Verified 06/30/23 10:22 citalopram [From Celexa] AdvReac shakes Verified 06/30/23 10:22 Current Medications: Generic Name Dose Route Start Last Admin Trade Name Freq PRN Reason Stop Dose Admin Sodium Chloride 1,000 mls @ 30 mls/hr 07/01/23 09:30 07/01/23 09:30 Sodium Chloride 0.9% IV 30 mls/hr .Q24H SILKE Administration Pertinent History/Comorbid Conditions* Medical History (Updated 06/15/23 @ 12:04 by Malick Rosas DPM) Depression with anxiety Diabetes mellitus Generalized anxiety disorder GERD (gastroesophageal reflux disease) Hyperlipidemia Hypertension Major depressive disorder, recurrent severe without psychotic features RALPH (obstructive sleep apnea) Osteoarthritis Post-traumatic stress disorder, unspecified Family History (Updated 03/07/20 @ 10:01 by Lise Serrano LPN) Diabetes Family/Other Hypertension Father Social History Smoking and tobacco/nicotine status: current every day tobacco/nicotine user cigarettes Packs smoked per day: 0.5 Years cigarettes smoked: 34 and smokeless tobacco Smokeless tobacco user: snuff Smokeless tobacco details: 1 can per week Quit status (tobacco/nicotine): not considering quitting Second hand smoke exposure: Yes Alcohol intake: never Substance/Drug Use: never Lives independently: Yes Marital status: single service: No Current occupational status: employed Current gender identity: Male Special radha needs: No Agree to transfusion: Yes Pertinent Exam Findings alert, oriented x 3 and clear to auscultation bilaterally Recommendations Surgery/Procedure today Coding Level of Care Code Acute Code for Chg Fwd Diagnoses
--- NOTE | 2023-07-01 10:52 | ANES.PREANE2 ---
Pre-Anesthetic Assessment Height/Weight: Height 1.73 m Weight 59.874 kg Temp Pulse Resp BP Pulse Ox O2 Del Method 97.5 F L 95 16 147/101 97 Room Air 07/01/23 09:21 07/01/23 09:21 07/01/23 09:21 07/01/23 09:21 07/01/23 09:21 07/01/23 09:21 Preop Diagnosis: need for screening colonoscopy Operation Date: 07/01/23 10:10 Proposed Procedures p 54586 colon G0121 screen colon A risk Z12.11(Not Applicable) - Malick Taveras MD Familial anesthetic complications: none Was Beta Jazmin taken within 24 hours: N/A Was Clonidine taken within 24 hours: N/A Last intake: Intake Last Liquid Date 06/30/23 Last Liquid Time 22:00 Last Solid Date 06/30/23 Last Solid Time 09:30 Social Tobacco and No alcohol 0.5 pack(s) per day 37 pack years Exam alert, oriented x 3, clear to auscultation bilaterally and regular rate & rhythm Airway Submandibular: within normal limits Cervical ROM: within normal limits Mallampati: Class II Dentition: chipped, loose and full Pulmonary Chronic Obstructive Pulmonary Disease and Sleep Apnea CV/HEM Hypertension and Murmur None reported Hepatic None reported GI Gastroesophageal Reflux Disease (controlled when taking meds) Metabolic Diabetes Mellitus (type II) and Hyperlipidemia [facility] [place] Fibromyalgia, Lower Back Pain and Osteoarthritis/DJD Neuropsych Anxiety, Bipolar and Depression Anesthetic Plan ASA status: 3 Anesthesia: MAC Risk of > 500 ml blood loss (7ml/kg in children): No Medications/Allergies Home Medications Medication Instructions Recorded Confirmed Last Taken Type albuterol sulfate 90 mcg/actuation 2 puff inhalation Q6H PRN 10/06/19 07/01/23 Unknown Rx aerosol inhaler (ProAir HFA) shortness of breath or wheezing #8.5 grams tizanidine 4 mg tablet 4 mg PO TID PRN muscle spasticity 10/31/19 07/01/23 Unknown Rx #90 tabs cpap #1 ea 11/16/19 06/15/23 Unknown Rx pen needle, diabetic 32 gauge x #100 ea 12/08/19 06/15/23 Unknown Rx 5/32 (1st Tier Unifine Pentips) lorazepam 0.5 mg tablet 0.5 mg PO .qhs PRN anxiety 30 days 04/25/20 07/01/23 Unknown Rx #30 tabs gabapentin 300 mg capsule 300 mg PO TID #90 caps 05/03/23 07/01/23 06/30/23 Rx lisinopril 10 mg tablet 10 mg PO DAILY #90 tabs 05/03/23 07/01/23 Unknown Rx metformin 1,000 mg tablet 1,000 mg PO BID #180 tabs 05/03/23 06/30/23 06/30/23 Rx pen needle, diabetic 31 gauge x #100 ea 05/03/23 06/15/23 Unknown Rx 5/16 (Comfort EZ Pen [place]) pravastatin 20 mg tablet 20 mg PO DAILY #90 tabs 05/03/23 07/01/23 Unknown Rx tamsulosin 0.4 mg capsule (Flomax) 0.4 mg PO DAILY #90 caps 05/03/23 07/01/23 Unknown Rx diabetic shoes with 3 inserts #1 ea 06/15/23 06/15/23 Unknown Rx insulin aspart U-100 100 unit/mL 20 unit (0.2 mL) SUBCUT TID per 06/28/23 06/30/23 06/30/23 Rx (3 mL) subcutaneous pen sliding scale #15 mL loratadine 10 mg tablet 10 mg PO DAILY 06/30/23 07/01/23 Unknown History omeprazole 20 mg capsule,delayed 20 mg PO DAILY 06/30/23 07/01/23 Unknown History release triamcinolone acetonide 0.1 % 1 applic topical TID PRN Itching 06/30/23 07/01/23 Unknown History topical ointment Allergies Allergy/AdvReac Type Severity Reaction Status Date / Time sulfamethoxazole Allergy Unknown Verified 06/30/23 10:22 [From Bactrim] trimethoprim [From Bactrim] Allergy Unknown Verified 06/30/23 10:22 citalopram [From Celexa] AdvReac shakes Verified 06/30/23 10:22 Current Medications Generic Name Dose Route Start Last Admin Trade Name Freq PRN Reason Stop Dose Admin Sodium Chloride 1,000 mls @ 30 mls/hr 07/01/23 09:30 07/01/23 09:30 Sodium Chloride 0.9% IV 30 mls/hr .Q24H SILKE Administration PFSH Anesthesia Medical History Depression with anxiety Diabetes mellitus Generalized anxiety disorder GERD (gastroesophageal reflux disease) Hyperlipidemia Hypertension Major depressive disorder, recurrent severe without psychotic features RALPH (obstructive sleep apnea) Osteoarthritis Post-traumatic stress disorder, unspecified Family History Family/Other Diabetes Father Hypertension Social History Smoking and tobacco/nicotine status: current every day tobacco/nicotine user cigarettes Packs smoked per day: 0.5 Years cigarettes smoked: 34 and smokeless tobacco Smokeless tobacco user: snuff Smokeless tobacco details: 1 can per week Quit status (tobacco/nicotine): not considering quitting Second hand smoke exposure: Yes Alcohol intake: never Substance/Drug Use: never Lives independently: Yes Marital status: single service: No Current occupational status: employed Current gender identity: Male Special radha needs: No Agree to transfusion: Yes Data Anesthesia Cardiac Studies: No Data to Display
[2023-07-01 12:12] VITALS: BP 126/88; PULSE 59; RESP 12; TEMP 36.1; O2SAT 97
[2023-07-01 12:25] VITALS: BP 120/78; PULSE 68; RESP 16; O2SAT 97
--- NOTE | 2023-07-01 12:58 | ANE.PACU2 ---
Inpatient post-anesthesia follow up: Airway intact: Yes Vital signs: Temperature 97 F Pulse Rate 68 Respiratory Rate 16 Blood Pressure 120/78 Pulse Oximetry 97 Oxygen Delivery Me thod Room Air Oxygen Flow Rate Fraction of Inspir ed Oxygen Hydration adequate: Yes Nausea and vomiting: No Pain level: 2 Mental status: Baseline
== END 2023-07-01 12:35 | disposition home or self-care (01) ==
PROVIDERS: PCP Nurse Practitioner Family; Visit Provider Surgery
PROC: 0DJD8ZZ Inspection of Lower Intestinal Tract, Via Natural or Artificial Opening Endoscopic (ICD-10-PCS; CPT 45378; principal; 2023-07-01 10:10)
DX: Z12.11 Encounter for screening for malignant neoplasm of colon (principal); E11.9 Type 2 diabetes mellitus without complications; E78.5 Hyperlipidemia, unspecified; I10 Essential (primary) hypertension; G47.33 Obstructive sleep apnea (adult) (pediatric); F17.210 Nicotine dependence, cigarettes, uncomplicated; J44.9 Chronic obstructive pulmonary disease, unspecified; M79.7 Fibromyalgia
CPT/HCPCS: 36416; 45378; 82962; 93005; J2704; J7030

== ENCOUNTER 2023-08-11 20:00 | Outpatient (CLI) | payer BC, MEDICAID, SELFPAY ==
[2023-04-27 12:46] VITALS: BP 118/73; BMI 23.8
== END 2023-08-11 20:01 | disposition home or self-care (01) ==
LOC: SLEEP 08-12 05:45
PROVIDERS: PCP Nurse Practitioner Family; Visit Provider Nurse Practitioner Family
DX: G47.33 Obstructive sleep apnea (adult) (pediatric) (principal)
CPT/HCPCS: 95811

== ENCOUNTER 2023-10-01 09:29 | Outpatient (CLI) | payer BC, MEDICAID, SELFPAY ==
[2023-09-21 14:54] VITALS: BP 118/73; BMI 23.8
--- NOTE | 2023-10-01 09:45 | USCV_ITS ---
Will Lambert Age: 53 Gender: M : 1970 Exam Date: 10/01/2023 11:26 Ordering Phys: Malick Rosas DPM Technologist: Christopher Ruiz Exam Location: [facility] [place] Indication: pad RIGHT LEFT Brachial 115.00 mmHg Brachial 108.00 mmHg Pressure (mmHg) Waveform Pressure (mmHg) Waveform 163.00 High Thigh 159.00 130.00 Below Knee 136.00 136.00 ACCOUNT SERVICE ASSOCIATE 130.00 135.00 DPA 136.00 1.18 Ankle/Brachial Index 1.18 Pre-Exercise Toe Pressure 100.00 101.00 0.88 Pre-Exercise Toe/Brachial Index 0.87 FINDINGS Resting VASQUEZ of 1.18 bilaterally Resting TBI of 0.88 on the right side and 0.87 on the left side CONCLUSIONS Normal resting ABIs and TBIs bilaterally suggesting no significant arterial obstructions Dr Yoselin See MD [facility] (Electronically Signed) Final Date: 11 October 2023 09:38 S
== END 2023-10-01 09:30 | disposition home or self-care (01) ==
LOC: RAD 09:30
PROVIDERS: PCP Nurse Practitioner Family; Visit Provider Podiatrist Foot & Ankle Surgery
DX: I73.9 Peripheral vascular disease, unspecified (principal)
CPT/HCPCS: 93923

== ENCOUNTER 2023-10-01 11:15 | Emergency (ER) | payer BC, MEDICAID, SELFPAY ==
[2023-09-21 14:54] VITALS: BP 118/73; BMI 23.8
[2023-10-01 11:23] VITALS: BP 100/68; PULSE 101; RESP 16; TEMP 36.4; O2SAT 93
--- NOTE | 2023-10-01 11:37 | XR_ITS ---
WS: [id number] XR chest 1V [id number] REASON FOR EXAM: shortness of breath FINDINGS: Mild tortuosity of the thoracic aorta. Normal heart size. Calcified granulomas disease in both hemithoraces. Compared to the previous examination of 07/13/2023 there is a vague area of reticular interstitial an d groundglass lung opacity in the mid lateral right lung field. No other significant interval changes noted compared to the previous study. IMPRESSION: Right lung opacity which is not identified on the previous examination but is of unknown chronicity. Potentially acute or subacute pneumonitis.
--- NOTE | 2023-10-01 11:42 | ED_ITS ---
HPI - General Adult 2 General: Chief complaint: General Medical Stated complaint: cough Time Seen by Provider: 10/01/23 11:35 History of Present Illness: 53-year-old man with a history of hypert ension, diabetes, tobacco dependence and COPD who presents to the emergency room with cough and shortness of breath. He has had malaise. Chills. Subjective fevers. Some pleuritic burning chest pain with deep breathing and cough. no le swelling. Review of Systems 2 Narrative: Constitutional symptoms: Negative except as documented in HPI. Skin symptoms: Negative except as documented in HPI. Eye symptoms: Negative except as documented in HPI. ENMT symptoms: Negative except as documented in HPI. Respiratory symptoms: Negative except as documented in HPI. Cardiovascular symptoms: Negative except as documented in HPI. Gastrointestinal symptoms: Negative except as documented in HPI. Genitourinary symptoms: Negative except as documented in HPI. Musculoskeletal symptoms: Negative except as documented in HPI. Neurologic symptoms: Negative except as documented in HPI. Psychiatric symptoms: Negative except as documented in HPI. Endocrine symptoms: Negative except as documented in HPI. PFSH ED 2 PFSH: Medical History (Updated 10/01/23 @ 14:04 by Shilpi Horton MD) Leg pain Generalized anxiety disorder Major depressive disorder, recurrent severe without psychotic features Post-traumatic stress disorder, unspecified Diabetes mellitus Hypertension Hyperlipidemia RALPH (obstructive sleep apnea) GERD (gastroesophageal reflux disease) Depression with anxiety Osteoarthritis Family History Family/Other Diabetes Father Hypertension Social History Smoking and tobacco/nicotine status: current every day tobacco/nicotine user cigarettes Packs smoked per day: 0.5 Years cigarettes smoked: 34 and smokeless tobacco Smokeless tobacco user: snuff Smokeless tobacco details: 1 can per week Quit status (tobacco/nicotine): not considering quitting Second hand smoke exposure: Yes Alcohol intake: never Substance/Drug Use: never Lives independently: Yes Marital status: single service: No Current occupational status: employed Current gender identity: Male Special radha needs: No Agree to transfusion: Yes Physical Exam 2 Narrative: EXAM NARRATIVE: General: Alert, no acute distress. Skin: Warm, dry. Head: Normocephalic, atraumatic. Neck: Supple, trachea midline. Eye: Extraocular movements are intact. Ears, nose, mouth and throat: mucosa moist. Cardiovascular: Regular, Normal peripheral perfusion. Respiratory: L coarse, some mild scattered wheeze., respirations are non- labored, breath sounds are equal, Symmetrical chest wall expansion. Gastrointestinal: Soft, Nontender, Non distended, Normal bowel sounds. Musculoskeletal: Normal ROM, no deformity. Neurological: Alert and oriented to person, place, time, and situation, No focal neurological deficit observed. Psychiatric: Cooperative, appropriate mood & affect. Course 2 Vital Signs: Vital signs: Vital Signs Temperature 97.5 F L 10/01/23 11:23 Pulse Rate 86 10/01/23 12:51 Respiratory Rate 16 10/01/23 12:51 Blood Pressure 123/80 10/01/23 12:51 Pulse Oximetry 93 10/01/23 12:51 Oxygen Delivery Me thod Nasal Cannula 10/01/23 12:51 Oxygen Flow Rate 2 10/01/23 12:51 MDM - General Adult Medical Decision Making Medical decision making: Differential diagnosis including but not limited to: Pneumonia, COPD exacerbation, influenza, COVID Workup based on differential diagnosis: Chest x-ray, basic lab work and flu and COVID swabs. Lab review. Patient has some mild leukocytosis with a white count of 14. No anemia. No renal failure. Electrolytes are normal. Flu is negative. COVID is pending. Chest x-ray: . What appears to be a new right-sided infiltrate consistent with pneumonia. No cardiomegaly. No pneumothorax. This was reviewed and interpreted by myself the ER physician. Lab Data 10/01/23 12:14 10/01/23 12:14 Laboratory Results WBC 13.91 10^3/uL (3.29-11.43) H 10/01/23 12:14 RBC 5.70 10^6/uL (3.85-5.65) H 10/01/23 12:14 Hgb 16.60 g/dL (11.27-16.99) 10/01/23 12:14 Hct 48.1 % (37-53) 10/01/23 12:14 MCV 84.4 fl (82-101) 10/01/23 12:14 MCH 29.1 pg (27-33) 10/01/23 12:14 MCHC 34.5 g/dL (30-55) 10/01/23 12:14 RDW 13.1 % (12.1-15.1) 10/01/23 12:14 Plt Count 204 10^3/cmm (157-399) 10/01/23 12:14 MPV 10.6 fL (7.4-10.4) H 10/01/23 12:14 Neut % (Auto) 76.8 % 10/01/23 12:14 Lymph % (Auto) 15.4 % 10/01/23 12:14 [place] % (Auto) 6.0 % 10/01/23 12:14 Eos % (Auto) 0.1 % 10/01/23 12:14 Baso % (Auto) 0.3 % 10/01/23 12:14 Neut # (Auto) 10.69 10^3/uL (1.8-7.7) H 10/01/23 12:14 Lymph # (Auto) 2.1 10^3/uL (0.8-4.8) 10/01/23 12:14 [place] # (Auto) 0.8 10^3/uL (0.2-0.9) 10/01/23 12:14 Eos # (Auto) 0.0 10^3/uL (0.0-0.8) 10/01/23 12:14 Baso # (Auto) 0.0 10^3/uL (0.0-0.1) 10/01/23 12:14 Nucleated RBC % (auto) 0 % 10/01/23 12:14 Nucleated RBCs # 0.0 /100WBC 10/01/23 12:14 Sodium 137 mmol/L (136-145) 10/01/23 12:14 Potassium 3.7 mmol/L (3.5-5.1) 10/01/23 12:14 Chloride 97 mmol/L (98-107) L 10/01/23 12:14 Carbon Dioxide 28 mmol/L (22-29) 10/01/23 12:14 Anion Gap 15.7 (5-19) 10/01/23 12:14 BUN 20 mg/dL (6-20) 10/01/23 12:14 Creatinine 0.8 mg/dL (0.7-1.2) 10/01/23 12:14 GFR Calculation 101.1 mL/min (90-130) 10/01/23 12:14 Glucose 194 mg/dL (65-115) H 10/01/23 12:14 Calculated Osmolality 292 mOsm/kg (285-295) 10/01/23 12:14 Lactic Acid 1.4 mmol/L (0.5-2.2) 10/01/23 12:14 Calcium 9.2 mg/dL (8.5-10.5) 10/01/23 12:14 Total Bilirubin 0.2 mg/dL (0.15-1.2) 10/01/23 12:14 AST 15 U/L (0-40) 10/01/23 12:14 ALT 14 U/L (0-41) 10/01/23 12:14 Alkaline Phosphatase 92 U/L (40-130) 10/01/23 12:14 C-Reactive Protein 130.0 mg/L (0.0-4.9) H 10/01/23 12:14 Total Protein 7.2 g/dL (6.6-8.7) 10/01/23 12:14 Albumin 3.5 g/dL (3.5-5.2) 10/01/23 12:14 Globulin 3.7 g/dL (1.3-4.6) 10/01/23 12:14 Influenza Type A Ag negative (Negative) 10/01/23 12:12 Influenza Type B Ag negative (Negative) 10/01/23 12:12 All radiology interpretation(s) finalized by discharge Other Data - Treating patient for pneumonia and a COPD exacerbation. -Discussed tobacco cessation. -IV Rocephin and Solu-Medrol in the emergency room. -Updraft in the emergency room. -Home on antibiotics and steroids. -Patient appears dehydrated as well. Normal saline bolus was given. - Discharged home - Discussed findings and plan with patient. Answered any questions. - All laboratory values were reviewed and interpreted personally by myself, the ER physician - All imaging was reviewed and interpreted personally by myself, the ER physician. - Evaluation and treatment of this problem were appropriate in the emergency setting Discharge Plan Discharge Patient Disposition: Home Clinical Impression: Pneumonia, COPD with acute exacerbation, Dehydration, Tobacco dependence Condition: Stable Prescriptions: New azithromycin [Zithromax Z-Carlos Alberto] 250 mg tablet See Rx Instructions .ROUTE .COMPLEX Qty: 6 0RF Rx Instructions: For 250 mg dose pack: take 500 mg today (day 1), then 250 mg for 4 days (days 2-5) cefdinir 300 mg capsule 300 mg PO BID 5 Days Qty: 10 0RF prednisone 20 mg tablet 60 mg PO DAILY 5 Days Qty: 15 0RF No Action (DME) cpap Qty: 1 0RF Rx Instructions: As directed gabapentin 300 mg capsule 300 mg PO TID Qty: 90 0RF Patient Comments: Pt states he takes 600mg qhs pravastatin 20 mg tablet 20 mg PO DAILY Qty: 90 0RF (DME) pen needle, diabetic [Comfort EZ Pen [place]] 31 gauge x 5/16 needle See Rx Instructions .Route Qty: 100 11RF Rx Instructions: As directed tamsulosin [Flomax] 0.4 mg capsule 0.4 mg PO DAILY Qty: 90 0RF (DME) diabetic shoes with 3 inserts See Rx Instructions .Route .MEDSUPPLY Qty: 1 0RF Rx Instructions: As directed to the [place] ([facility] [place]) Dexcom G6 Pluck Separator Misc See Rx Instructions .ROUTE .MEDSUPPLY Qty: 1 0RF Rx Instructions: as directed ([facility] [place]) Dexcom G6 Sensor Device See Rx Instructions .ROUTE .MEDSUPPLY Qty: 9 0RF Rx Instructions: change every 10 days (DME) Dexcom G6 Transmitter Device See Rx Instructions .ROUTE .MEDSUPPLY Qty: 1 3RF Rx Instructions: change every 3 months albuterol sulfate [ProAir HFA] 90 mcg/actuation HFA aerosol inhaler 2 puff INHALATION Q6H PRN (Reason: shortness of breath or wheezing) Qty: 8.5 0RF (DME) pen needle, diabetic [1st Tier Unifine Pentips] 32 gauge x 5/32 needle See Rx Instructions .ROUTE .MEDSUPPLY Qty: 100 1RF Rx Instructions: 1 qid to give insulin (DME) Omnipod 5 G6 Intro Kit (Gen 5) Cartridge See Rx Instructions .ROUTE .MEDSUPPLY Qty: 1 0RF Rx Instructions: As directed ([facility] [place]) Omnipod 5 G6 Pods (Gen 5) Cartridge See Rx Instructions .ROUTE .MEDSUPPLY Qty: 10 3RF Rx Instructions: change pod every 3 days Symbicort 160-4.5 mcg/actuation HFA aerosol inhaler 2 puff INHALATION BID Novolog U-100 Insulin aspart 100 unit/mL Solution See Rx Instructions .ROUTE .COMPLEX Rx Instructions: 60 UNITS MAX DAILY DOSE VIA INSULIN PUMP triamcinolone acetonide 0.1 % ointment 1 applic topical TID PRN (Reason: Itching) Discharge Orders: Discharge ED (Routine); Ordered 10/01/23 Ordered By: Shilpi Horton Referrals: Corina Esqueda FNP [Primary Care Provider] - Patient Instructions: Opioid Safety, Pain Management Coding Level of Care Code ED Produce Team Member for Wilbur Marino
[2023-10-01 12:11] VITALS: PULSE 87; RESP 16; O2SAT 91
[2023-10-01] MEDS: albuterol 2.5 mg/3 mL Neb INHALATION (12:15)
[2023-10-01] MEDS: ipratropium-albuterol 3 mL Neb INHALATION (12:15)
[2023-10-01] MEDS: sodium chloride 0.9% 1,000 ML 999 ML IV (12:16)
[2023-10-01] MEDS: methylPREDNISolone sod succ 125 mg/2 mL INJ IVP (12:17)
[2023-10-01 12:20] VITALS: PULSE 91
[2023-10-01 12:35] LABS: Basophils % 0.3 %; Eosinophils % 0.1 %; Hematocrit 48.1 % (37-53); Lymphocytes # 2.1 10^3/uL (0.8-4.8); Lymphocytes % 15.4 %; Mean Corpuscular HGB Conc 34.5 g/dL (30-55); Mean Corpuscular Hemoglobin 29.1 pg (27-33); Mean Corpuscular Volume 84.4 fl (82-101); Mean Platelet Volume 10.6 fL (7.4-10.4); Monocytes # 0.8 10^3/uL (0.2-0.9); Neutrophils # 10.69 10^3/uL (1.8-7.7); Neutrophils % 76.8 %; Nucleated Red Blood Cells % 0 %; Platelet Count 204 10^3/cmm (157-399); Red Cell Distribution Width 13.1 % (12.1-15.1); White Blood Count 13.91 10^3/uL (3.29-11.43)
[2023-10-01 12:51] VITALS: BP 123/80; PULSE 86; RESP 16; O2SAT 93
[2023-10-01 12:54] LABS: Lactic Sepsis W/Reflex 1.4 mmol/L (0.5-2.2)
[2023-10-01 12:56] LABS: Influenza A by IFA negative (Negative); Influenza B by IFA negative (Negative)
[2023-10-01 12:56] LABS: Alanine Aminotransferase 14 U/L (0-41); Albumin Level 3.5 g/dL (3.5-5.2); Alkaline Phosphatase 92 U/L (40-130); Anion Gap 15.7 (5-19); Aspartate Amino Transferase 15 U/L (0-40); Blood Urea Nitrogen 20 mg/dL (6-20); Calcium 9.2 mg/dL (8.5-10.5); Carbon Dioxide 28 mmol/L (22-29); Chloride 97 mmol/L (98-107); Globulin 3.7 g/dL (1.3-4.6); Glomerular Filtration Rate 101.1 mL/min (90-130); Glucose 194 mg/dL (65-115); Osmolality Calculated 292 mOsm/kg (285-295); Potassium 3.7 mmol/L (3.5-5.1); Sodium 137 mmol/L (136-145); Total Bilirubin 0.2 mg/dL (0.15-1.2); Total Protein 7.2 g/dL (6.6-8.7)
[2023-10-01] MEDS: cefTRIAXone 1,000 MG in sodium chloride 0.9% (plus) 50 ML 100 MG IV (13:37)
[2023-10-01 14:05] VITALS: BP 121/83; PULSE 76; RESP 16; O2SAT 92
[2023-10-01 14:18] LABS: Adenovirus Not Detected (NOT DETECT); Chlamydia Pneumoniae Not Detected (NOT DETECT); Coronavirus 229E,HKU1,NL63,OC4 Not Detected (NOT DETECT); Human Metapneumovirus Not Detected (NOT DETECT); Human Rhinovirus/Enterovirus Not Detected (NOT DETECT); Influenza A Detected (NOT DETECT); Influenza A H1 Not Detected (NOT DETECT); Influenza A H1-2009 Not Detected (NOT DETECT); Influenza A H3 Not Detected (NOT DETECT); Influenza B Not Detected (NOT DETECT); Mycoplasma Pneumoniae Not Detected (NOT DETECT); Parainfluenza Virus Type 1 Not Detected (NOT DETECT); Parainfluenza Virus Type 2 Not Detected (NOT DETECT); Parainfluenza Virus Type 3 Not Detected (NOT DETECT); Parainfluenza Virus Type 4 Not Detected (NOT DETECT); Respiratory Syncytial Virus A Not Detected (NOT DETECT); Respiratory Syncytial Virus B Not Detected (NOT DETECT); SARS-COV-2 Not Detected (NOT DETECT)
[2023-10-01 14:20] LABS: Influenza A Detected (NOT DETECT); Influenza A H1 Not Detected (NOT DETECT); Influenza A H1-2009 Not Detected (NOT DETECT); Influenza A H3 Not Detected (NOT DETECT); Influenza B Not Detected (NOT DETECT); Results from Genmark
[2023-10-01 14:23] VITALS: BP 121/83; PULSE 76; RESP 16; TEMP 36.4; O2SAT 92
== END 2023-10-01 14:23 | disposition home or self-care (01) ==
PROVIDERS: Emergency Provider Emergency Medicine; PCP Nurse Practitioner Family
DX: J44.0 Chronic obstructive pulmonary disease with (acute) lower respiratory infection (principal); J18.9 Pneumonia, unspecified organism; J44.1 Chronic obstructive pulmonary disease with (acute) exacerbation; E86.0 Dehydration; Z79.4 Long term (current) use of insulin; F17.210 Nicotine dependence, cigarettes, uncomplicated; F17.290 Nicotine dependence, other tobacco product, uncomplicated; E11.9 Type 2 diabetes mellitus without complications; I10 Essential (primary) hypertension; E78.5 Hyperlipidemia, unspecified
CPT/HCPCS: 36415; 71045; 80053; 83605; 85025; 86140; 87040; 87631; 87635; 87804; 94640; 96374; 96375; 99284; J0696; J2930; J7030; J7613

== ENCOUNTER 2024-01-07 08:44 | Outpatient (CLI) | payer BC, MEDICAID, SELFPAY ==
[2023-09-21 14:54] VITALS: BP 118/73; BMI 23.8
--- NOTE | 2024-01-07 08:50 | CT_ITS ---
WS: [id number] CT ABDOMEN AND PELVIS WITH CONTRAST HISTORY: LLQ PAIN TECHNIQUE: Imaging performed of the abdomen and pelvis with IV contrast. Single phase imaging of the abdomen. Coronal and sagittal reformats are submitted. All CT scans at [facility] use at [address] one of these dose optimization techniques: automated exposure control; mA and/or kV adjustment per patient size (includes targeted exams where dose is matched to clinical indication); or iterative re construction. IV CONTRAST: Omnipaque 350; 100 mL IV. Oral contrast: Yes DLP: 284.83 mGy.cm COMPARISON: 12/13/2018 Lower thorax: Lung bases are clear. Heart is normal size. Small hiatal hernia. Liver/biliary system: Normal size with no intrahepatic dilatation. Gallbladder: Normal. No gallstones or wall thickening. No pericholecystic fluid. Pancreas: Normal size pancreas and pancreatic duct. No adjacent inflammation. Spleen: Normal size spleen. No mass or infarct. Adrenal glands: Normal. Right kidney: Normal. Left kidney: Normal. Aorta: Atherosclerosis aorta. Mesenteric veins are patent. Lymphadenopathy: None. Free fluid: None. GI tract: Normally distended stomach. No small bowel obstruction. There is moderate fecal retention t hroughout the entire colon. Most significant retention is in the RIGHT colon and cecum. Increased fec al material towards the rectum. No obstructive pattern. The appendix is not identified. No evidence f or appendicitis. Abdominal wall: Unremarkable abdominal wall. No hernia. Pelvis: No free fluid or adenopathy within the pelvis. Bones: Unremarkable. CT/CT abdomen pelvis w con* [id number] IMPRESSION: 1. No acute abdominal or pelvic abnormalities. 2. Marked fecal retention throughout the colon. Moderate rectal impaction. No obstructive pattern. 3. No ascites or adenopathy. No diverticulitis. 4. No renal obstruction. 5. Atherosclerosis aorta.
[2024-01-07] MEDS: iohexol 350 mg/mL 500 mL Btl (per mL) PO (09:32)
[2024-01-07] MEDS: iohexol 350 mg/mL 500 mL Btl (per mL) IV (10:05)
== END 2024-01-07 08:45 | disposition home or self-care (01) ==
LOC: RAD 08:44
PROVIDERS: PCP Nurse Practitioner Family; Visit Provider Nurse Practitioner Family
DX: R10.32 Left lower quadrant pain (principal); K44.9 Diaphragmatic hernia without obstruction or gangrene; K56.41 Fecal impaction
CPT/HCPCS: 74177; Q9967

== ENCOUNTER → 2024-11-17 09:57 | Outpatient (BNVA) | payer BC, MEDICAID, SELFPAY ==
[2024-03-17 10:40] VITALS: BP 118/73; BMI 23.8
== END ==
PROVIDERS: PCP Nurse Practitioner Family; Visit Provider Internal Medicine
DX: E11.65 Type 2 diabetes mellitus with hyperglycemia (principal); Z79.4 Long term (current) use of insulin; E78.5 Hyperlipidemia, unspecified; G62.9 Polyneuropathy, unspecified
CPT/HCPCS: 36415; 80053; 80061; 82044; 83036

== ENCOUNTER 2025-02-14 14:45 | Outpatient (CLI) | payer BC, MEDICAID, SELFPAY ==
[2024-03-17 10:40] VITALS: BP 118/73; BMI 23.8
[2025-02-14 15:32] LABS: Creatinine Urine, Random 169 mg/dL (39-259); Microalbumin Random Urine 12 ug/dL (0-20)
[2025-02-14 15:34] LABS: Microalbum Creatinine Ratio Ur 71 mg/dL (0-20)
[2025-02-14 15:41] LABS: Alanine Aminotransferase 53 U/L (0-41); Albumin Level 4.2 g/dL (3.5-5.2); Alkaline Phosphatase 93 U/L (40-130); Anion Gap 16.4 (5-19); Aspartate Amino Transferase 32 U/L (0-40); Blood Urea Nitrogen 18 mg/dL (6-20); Calcium 9.3 mg/dL (8.5-10.5); Carbon Dioxide 25 mmol/L (22-29); Chloride 103 mmol/L (98-107); Chol HDL Ratio 3.76 mg/dL (1.0-5.00); Cholesterol 169 mg/dL (0-200); Globulin 2.8 g/dL (1.3-4.6); Glomerular Filtration Rate 100.4 mL/min (90-130); Glucose 136 mg/dL (65-115); HDL Cholesterol 45 mg/dL (60-100); LDL Cholesterol Calculated 86 mg/dL (50-129); LDL HDL Ratio 1.91 RATIO (0.00-3.22); Osmolality Calculated 294 mOsm/kg (285-295); Potassium 4.4 mmol/L (3.5-5.1); Sodium 140 mmol/L (136-145); Total Bilirubin 0.3 mg/dL (0.15-1.2); Triglycerides 192 mg/dL (0-150)
[2025-02-14 17:12] LABS: Estmated Average Glucose 180; Hemoglobin A1C 7.9 % (4.0-6.0)
== END 2025-02-14 14:46 | disposition home or self-care (01) ==
PROVIDERS: PCP Nurse Practitioner Family; Visit Provider Internal Medicine
DX: E11.65 Type 2 diabetes mellitus with hyperglycemia (principal); Z79.4 Long term (current) use of insulin
CPT/HCPCS: 36415; 80053; 80061; 82044; 83036

== ENCOUNTER 2025-03-19 15:24 | Emergency (ER) | payer BC, MEDICAID, SELFPAY ==
--- OUTSIDE RECORDS SUMMARY | 2023-10-20 04:00 | XMS_ITS ---
Author Organization [facility] Address [address] [place] [address] Care Team Providers Care Finance Attorney Name Role Phone Becky Dillon Primary Care Provider BECKY DILLON Unavailable Unavailable Migration, Provider Unavailable Unavailable REASON FOR VISIT EMR-[facility]erm[facility] Vital Signs Height 68.00 in 10/20/2023 Weight 136.00 lbs 10/20/2023 BMI 21 kg/m2 10/20/2023 Height-cm 172.72 cm 10/20/2023 Weight-kg 61.69 kg 10/20/2023 Encounters Encounter Location Date Provider Diagnosis Migrated_Facility 0 0 10/20/2023 Provider Migration Chronic pain syndrome G89.4 ; Pain in unspecified joint M25.50 ; Pain in right knee M25.561 ; Pain in left knee M25.562 ; Other intervertebral disc degeneration, 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 ; Other intervertebral disc degeneration, lumbar region M51.36 ; Dorsalgia, unspecified M54.9 ; Unspecified abnormalities of gait and mobility R26.9 and Low back pain, unspecified M54.50 Assessments Encounter Date Diagnosis (ICD Code) Assessment Notes Treatment Notes Treatment Clinical Notes Section Notes 10/20/2023 Chronic pain syndrome (ICD-10 - G89.4) 10/20/2023 Pain in unspecified joint (ICD-10 - M25.50) 10/20/2023 Pain in right knee (ICD-10 - M25.561) 10/20/2023 Pain in left knee (ICD-10 - M25.562) 10/20/2023 Other intervertebral disc degeneration, thoracic region (ICD-10 - M51.34) 10/20/2023 Other intervertebral disc degeneration, lumbar region (ICD-10 - M51.36) 10/20/2023 Dorsalgia, unspecified (ICD-10 - M54.9) 10/20/2023 Unspecified abnormalities of gait and mobility (ICD-10 - R26.9) 10/20/2023 Low back pain, unspecified (ICD-10 - M54.50) Plan Of Treatment No Information Progress Notes * Will LAMBERTDOB:1970 ([age] yo M)Acc No.[id number]:10/20/2023 Patient: Will Peters Provider: Juanjose shen Migration :1970 A ge:53 Y S ex:Male Date:10/20/2023 Address:[address] [place], [place] [id number] Pcp:Becky Dillon Subjective: * Chief Complaints: * E MR-Fermín Objective: * Vitals: H t: 68.00 in, Wt: 136.00 lbs, Wt-k.69 kg, BMI: 21 Index, Pain scale: 10 1- 10, Ht-cm: 172.72 cm. Assessment: * Assessment: 1. C hronic pain syndrome - G89.4 2 . P ain in unspecified joint - M25.50? 3. P ain in right knee - M25.561 4 . P ain in left knee - M25.562 5 . O ther intervertebral disc degeneration, thoracic region - M51.34 6 . O ther intervertebral disc degeneration, lumbar region - M51.36 7 . D orsalgia, unspecified - M54.9 8 . U nspecified abnormalities of gait and mobility - R26.9 9 . L ow back pain, unspecified - M54.50 Billing Information: * Visit Code: 79967 Office Visit, Est Pt., Level 3. * Electronic signature of Prov ider Migration on 03/19/2025 at 03:28 PM CDT Sign off status: Pending * Provider: Juanjose shen Migration Date: 10/20/2023 Generated for Poonam hyatt/Rene/Zaitting on: 0 03/19/2025 03:28 PM CDT
[2024-03-17 10:40] VITALS: BP 118/73; BMI 23.8
--- OUTSIDE RECORDS SUMMARY | 2024-06-17 04:00 | XMS_ITS ---
Author Organization [facility] Address [address] [place] [address] Care Team Providers Care Audio Visual Aids Director Name Role Phone Becky Dillon Primary Care [...] * FAUSTO WillDOB:1970 ([age] yo M)Acc No.[id number]:06/17/2024 Patient: Will LEMUS :1970 A ge:54 Y S ex:Male Address:[address] [place] [id number] * Refills Stop Gabapentin Capsule, 300 MG, Oral, 1 Capsule three times a day Subjective: * Chief Complaints: * E MR-Fermín * * Date:
--- OUTSIDE RECORDS SUMMARY | 2024-06-18 04:00 | XMS_ITS ---
Author Organization [facility] Address [address] [place] [address] Care Team Providers Care Grid Molder Name Role Phone Becky Dillon Primary Care Provider BECKY DILLON Unavailable Unavailable Migration, Provider Unavailable Unavailable Allergies Allergen (clinical drug ingredient) Drug/Non Drug Allergy documented on EMR Reaction Allergy Type Onset Date Status sulfamethoxazole / trimethoprim Bactrim Unknown Drug Allergy Active REASON FOR VISIT EMR-Fermín Medications Medication SIG (Take, Route, Frequency, Duration) Notes Start Date End Date Status Novolog PenFill U-100 Insulin *Reorder from [facility] for eRx and Interaction Alerts* Active Albuterol Sulfate *[facility]* Active SEROquel *Pick strength-f orm from [facility] for eRX* Active Meloxicam *Pick strength-f orm from [facility] for eRX* Active Levemir FlexTouch U100 Insulin *[facility] and Interaction Alert[facility]* Active Gabapentin *[facility]* Active Tylenol *[facility]* Active Social History Social History Additional Details Category Social Info Options Details Migrated Social History Migrated Social History Alcoholic beverages? - No, Applying for disability? - No, Currently on disability? - No, Drug or substance abuse? - No, Involved in any legal proceedings or lawsuits? - No, Marital Status - single, Nonprescription drug use? - No, Participation in detoxification or rehabilitation - No, Smoking - 1 PPD, Working currently? - No Encounters Encounter Location Date Provider Diagnosis Migrated_Facility 0 0 06/18/2024 Provider Migration Plan Of Treatment No Information Progress Notes * Yaritza LAMBERT:1970 ([age] yo M)Acc No.[id number]:06/18/2024 Patient: Will LEMUS :1970 A ge:54 Y S ex:Male Address:[address] [place] [address] Subjective: * Chief Complaints: * E MR-Fermín * Surgical History: left knee surgery Neck Bone graft * Family History: M igrated Family History: : Cancer, c hronic pain, D iabetes, f ibromyalgia, H eart disease, R heumatoid arthritis, S troke. * Social History: M igrated Social History: M igrated Social History: Alcoholic beverages? - No, A pplying for disability? - No, C urrently on disability? - No, D rug or substance abuse? - No, I nvolved in any legal proceedings or lawsuits? - No, M arital Status - single, N onprescription drug use? - No, P articipation in detoxification or rehabilitation - No, S moking - 1 PPD, W orking currently? - No. * Medications: T akingNovolog PenFill U-100 Insulin , Notes to Pharmacist: *Reorder from [facility] for eRx and Interaction Alerts*Gabapentin , Notes to Pharmacist: *Pick strength-form from [facility] for eRX*Albuterol Sulfate , Notes to Pharmacist: *Pick strength-form from [facility] for eRX*Tylenol , Notes to Pharmacist: *Pick strength-form from [facility] for eRX*Meloxicam , Notes to Pharmacist: *Pick strength-form from [facility] for eRX*SEROquel , Notes to Pharmacist: *Pick strength-form from [facility] for eRX*Levemir FlexTouch U100 Insulin , Notes to Pharmacist: *Reorder from [facility] for eRx and Interaction Alerts*Taking Novolog PenFill U-100 Insulin , Notes to Pharmacist: *Reorder from [facility] for eRx and Interaction Alerts*Taking Gabapentin , Notes to Pharmacist: *Pick strength-form from [facility] for eRX*Taking Albuterol Sulfate , Notes to Pharmacist: *Pick strength-form from [facility] for eRX*Taking Tylenol , Notes to Pharmacist: *Pick strength-form from [facility] for eRX*Taking Meloxicam , Notes to Pharmacist: *Pick strength-form from [facility] for eRX*Taking SEROquel , Notes to Pharmacist: *Pick strength-form from [facility] for eRX*Taking Levemir FlexTouch U100 Insulin , Notes to Pharmacist: *Reorder from [facility] for eRx and Interaction Alerts* * Allergies: B actrim: Allergy * * Date:
--- OUTSIDE RECORDS SUMMARY | 2025-03-19 15:28 | XMS_ITS | Clinical Summary ---
Author Organization [facility] Address [address] [facility] Attn: Epic Prelude ADT ALESSANDRO MARTINEZ [phone] Care Team Providers Care Personal Injury Specialist Name Role Phone Unavailable Primary Care Provider Unavailabl e Allergies No known active allergies Medications predniSONE (DELTASONE) 20 mg tablet Take 3 initially, then 1 twice daily.. 8 Tablet None 7 Active amoxicillin (AMOXIL) 500 mg capsule Take 1 Capsule (500 mg) by mouth 3 times daily. 24 Capsule None 7 Active albuterol sulfate 90 mcg/Actuation inhaler Take 4 puffs every 4 hours while awake.. 8.5 Gram 0 7 Active OTHER Unknown cholesterol med . 7 Active LISINOPRIL ORAL Take by mouth daily. 7 Active metFORMIN (GLUCOPHAGE) 500 mg tablet Take 500 mg by mouth daily. 6 Active Active Problems Problem Noted Date Diagnosed Date Tobacco use 12/31/2015 Chronic back pain 04/08/2014 Cervical spine fracture 11/22/2013 Encounters Date Type Department Care Team Description 02/13/2025 External Device Data [facility] ABSTRACTION Provider, Abstract 01/10/2025 External Device Data [facility] ABSTRACTION Provider, Abstract 01/09/2025 External Device Data [facility] ABSTRACTION Provider, Abstract from Last 3 Months Immunizations Immunization Administration Dates Next Due (ADACEL/BOOSTRIX)(10 YR UP) TDAP VACCINE, 0.5ML, IM 11/21/2013 Social History Tobacco Use Types Packs/Day Years Used Date Smoking Tobacco: Every Day Cigarettes Last attempted to quit: 01/15/2014 Smokeless Tobacco: Current Alcohol Use Standard Drinks/Week Comments No 0 (1 standard drink = 0.6 oz pur e alcohol) Sex and Gender Information Value Date Recorded Sex Assigned at Not on file Legal Sex Male 2:45 AM COLON THERAPIST Gender Identity Not on file Sexual Orientation Not on file Last Filed Vital Signs Vital Sign Reading Time Taken Comments Blood Pressure 147/85 09/21/2016 5:10 PM COLON THERAPIST Pulse 77 09/21/2016 5:10 PM COLON THERAPIST Temperature 36.9 C (98.4 F) 09/21/2016 5:10 PM COLON THERAPIST Respiratory Rate 18 09/21/2016 5:10 PM COLON THERAPIST Oxygen Saturation - - Inhaled Oxygen Concentration - - Weight 88.5 kg (195 lb) 09/21/2016 3:25 PM COLON THERAPIST Height 172.7 cm (5' 8 ) 09/21/2016 3:25 PM COLON THERAPIST Body Mass Index 29.65 09/21/2016 3:25 PM COLON THERAPIST Plan of Treatment Health Maintenance Due Date Last Done Comments HEPATITIS B VACCINES (1 of 3 - 19+ 3-dose series) 02/1989 COLORECTAL SCREENING 2015 Colorectal Cancer Screening 2015 FIT-DNA Q 3 years 2015 FIT/FOBT Q 1 year 2015 Flex Sig/CT Colonography Q 5 years 2015 ZOSTER VACCINE (1 of 2) 01/28/2020 DTAP/TDAP/TD VACCINES (2 - Td or Tdap) 11/22/2023 INFLUENZA VACCINE (#1) 2025 Medical Devices Implanted Type Area Cash Application Clerk Device Identifier Shelf Expiration Date Model / Serial / Lot Bone Allcrft 8mm Douglas/Canc 6183-5-008 - [id number] Implanted:Qty : 1 on 11/24/2013 Bone Right: Spine Cervical Anterior [employer] 09/28/2017 [id number] / [id number] / [id number] Plate Rflxhbrd 1lvl 14mm [id number] - Sload#[id number] Implanted:Qty : 1 on 11/24/2013 Plate Right: Spine Cervical Anterior [employer]INE [id number] / LOAD# [id number] / NA Screw Rh Sd Va 4.0x14mm [id number] - Sload#[id number] Implanted:Qty : 4 on 11/24/2013 Screw Right: Spine Cervical Anterior [employer] SPINE [id number] / LOAD# [id number] / NA Explanted Type Area Cash Application Clerk Device Identifier Shelf Expiration Date Model / Serial / Lot Reflex Hybrid Short Temporary Fixation Pin Explanted:Qty : 2 on 11/24/2013 by Lauren Horvath MD Right: Spine Cervical Anterior [employer] SPINE [id number] / LOAD#[id number] / NA Description:pricing per 11/24 invoice Insurance [facility] MEDICAID
--- OUTSIDE RECORDS SUMMARY | 2025-03-19 15:29 | XMS_ITS | Data Portability ---
Author Organization Padmini Fontaine [facility] Address [address] [place] [address] Assessment Encounter Date Assessment Date Assessment LastModified by Organization Details LastModified Time 06/02/2024 06/02/2024 When he gets ready to have diarrhea, he has rotten gas. He has been having headaches and his sinuses are stopped up. He is not able to travel to see specialists because he doesn't have a ride. Not available 06/06/2024 07:10:42 09/08/2024 09/08/2024 Patient here today for a check-up. He reports the medication for ED has not been helpful. He has neuropathy pain often in his legs, always in his feet. Not available 09/08/2024 10:24:30 Plan of Treatment Reminders Order Date Submit Date Provider Last Modified By Organization Details Last Modified Time Details Appointments OFFICE VISIT 20 2024 08:20A M XENIA PAGAN Not available Not available Not available Lab microal bumin/c reatini ne, mass ratio, urine 2024 025 [employer] [facility], [address] [facility] [address], [address] [place], [address], 09/09/2024 05:22:35 hemoglo bin A1C/hem oglobin total, QN, blood 2024 025 [facility], [address] [facility], [address], [place], [address], 09/08/2024 11:00:47 CMP, serum or plasma 2024 025 [facility]SCAR [facility], [address], [address], [place], [address], 09/08/2024 12:21:17 lipid panel, blood 2024 025 [facility], [address], [facility] [address], [place], [address], 09/08/2024 12:21:20 CBC 2024 025 [facility], [address], [facility] 1, [place], [address], 09/08/2024 11:01:04 PSA, serum or plasma 2024 025 [employer] [facility], [address] [place] [address], [place], [address], 09/09/2024 05:22:37 culture , stool 2023 024 [email or web address] [facility], [address], [facility] [address], [place], [address], 06/16/2024 12:30:44 O&P (ova & parasit es), stool 2023 024 [facility], [address], [address], [place], [address], 06/16/2024 12:30:44 H pylori Ag, stool 2023 024 [email or web address] [facility], [address], [address], [place], [address], 06/16/2024 12:30:44 microal bumin/c reatini ne, mass ratio, urine 2023 024 [employer] [facility], [address] [place] [address], [facility] [address], [place], [address], 06/05/2024 16:45:43 HbA1c (hemogl obin A1c), blood 2023 024 [facility] ([facility]), [address] [facility], [place], [address], 06/02/2024 11:42:09 CMP, serum or plasma 2023 024 [facility], [address], [facility] 1, [place], [address], 06/02/2024 15:26:24 lipid panel, blood 2023 [facility], [address], [facility] 1, [place], [address], 06/02/2024 15:26:26 CBC 2023 024 [facility], [address], [facility], [place], [address], 06/02/2024 11:35:42 alpha-g al ige, serum 2023 024 ÓSCARCartoon Doll [facility], [address] [facility] [address], [address], [place], [address], 04/12/2024 16:25:18 celiac disease compreh ensive panel, serum 2023 024 ÓSCARCartoon Doll [facility], [address] [facility] [address], [address], [place], [address], 04/12/2024 16:25:[address] referra l 2024 025 [facility], [address] [place], [address], 10/25/2024 12:28:21 gastroe nterolo gist referra l 2023 024 [email or web address] [facility], [address] [facility] [address], [place], [address], 05/10/2024 11:30:29 Procedures None recorde d. Surgeries None recorde d. Imaging None recorde d. Medication Orders nystati n-triam cinolon e 100,000 unit/g- 0.1 % topical cream 2024 025 [facility] 15, [address], [place], [address], 09/08/2024 12:28:13 sildena aurelio 50 mg tablet 2023 024 [facility] 15, [address]/[facility], [place], [address], 06/02/2024 10:25:18 amoxici llin 875 mg-pota ssium clavula hernesto 125 mg tablet 2023 025 [facility] 15, [address]/[facility], [place], [address], 09/08/2024 09:54:28 Cialis 10 mg tablet 2023 024 [facility] 15, [address]/[facility], [place], [address], 04/07/2024 11:39:01 meloxic am 15 mg tablet 2023 024 [facility] 15, [address]/[facility] [address], [place], [address], 04/07/2024 11:39:02 triamci nolone acetoni de 0.1 % topical cream 2023 024 [facility] 15, [address], [place], [address], 06/02/2024 10:01:45 Patient TargetsNo targets recorded. Patient Instructions Encounter Date Encounter Id Patient Instructions Last Modified By Organization Details Last Modified Time 04/07/2024 [id number] Call or return for questions or concerns. Not available 04/07/2024 11:35:03 06/02/2024 [id number] Call or return for questions or concerns. Not available 06/02/2024 10:25:26 09/08/2024 [id number] Call or return for questions or concerns. 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 Referring Physician: [facility], Encounter Date: 04/07/2024 Urologist Referral for Erect ile dysfunction Referring Physician: [facility], Encounter Date: 09/08/2024 Results Created Date Observation Date Name Description Value Unit Range Abnormal Flag Note LastModifiedBy Organization Detail LastModifiedTime 04/07/2004/12/2024 ALPHA GAL PANEL beef (F27) IgE <0.10 kU/L normal Not Available [facility] [place] [address] [place], [address], 04/12/2024 16:25:18 04/07/20 24 04/12/2024 ALPHA GAL PANEL class 0 Not Available [facility] [place] [address] [place], [address], 04/12/2024 16:25:18 04/07/20 24 04/12/2024 ALPHA GAL PANEL alexander (F88) IgE <0.10 kU/L normal Not Available [facility] [place] [address] [place], [address], 04/12/2024 16:25:18 04/07/20 24 04/12/2024 ALPHA GAL PANEL class 0 Not Available [facility] [place] [address] [place], [address], 04/12/2024 16:25:18 04/07/20 24 04/12/2024 ALPHA GAL PANEL pork (F26) IgE <0.10 kU/L normal Not Available [facility] [address] , [place], [address], 04/12/2024 16:25:18 04/07/20 24 04/12/2024 ALPHA GAL PANEL class 0 Not Available [facility] [address] , [place], [address], 04/12/2024 16:25:18 04/07/20 24 04/12/2024 ALPHA GAL PANEL galactose alpha 1,3 galactose IgE 0.54 kU/L <0.10 high Resul ts above 0.1 kU/L indic ate an aller gen-s pecif ic IgE sensi tizat ion to galac tose- a-1,3 -gala ctose , and such patie nts are at risk for delay ed aller gic react ions follo wing beef, pork, or alexander consu mptio n. Circu latin g IgE antib odies may remai n undet ectab le despi te a convi ncing clini micky histo ry becau se these antib odies may be direc katya towar ds aller gens revea led or alter ed durin g indus trial proce ssing , cooki ng, or diges tion and there fore do not exist in the origi nal food for which the patie nt is teste d. Somet imes indiv idual s diagn osed with chron ic urtic aria may devel op IgE antib odies direc katya again st human thyro globu cindy. Such antib odies may cross -reac t with the bovin e thyro globu cindy used in Immun oCAP( R) Aller gen o215, alpha -Gal, leadi ng to a false -posi tive test resul t. A defin itive diagn osis shoul d be based on the evalu ation of both clini micky and labor atory findi ngs and not on any singl e diagn ostic metho d. Addit ional infor matalberto hurtado can be found at http: //www .phad ia.co m Not Available [facility] [address] [place], [address], 04/12/2024 16:25:18 04/07/20 24 04/12/2024 INTER PRETA TION interpretati on Speci fic Level of Aller gen IGE Class kU/L Speci fic IGE Antib valeria ----- ----- ---- ----- ----- ----- ---- 0 <0.10 Absen t/Und etect able 0/1 0.10- 0.34 Very Low Level 1 0.35- 0.69 Low Level 2 0.70- 3.49 Moder ate Level 3 3.50- 17.4 High Level 4 17.5- 49.9 Very High Level 5 50-10 0 Very High Level 6 >100 Very High Level The clini micky relev ance of aller gen resul ts of 0.10- 0.34 kU/L are undet ermin ed and inten ded for speci alist use. Aller gens denot ed with a inclu de resul ts using one or more nela te speci fic reage nts. In those cases , the test was devel oped and its nela tical perfo rmanc e janette cteri stics have been deter mined by [facility]. It has not been clear ed or appro carol by the U.S. Food and Drug Admin istra tion. This assay has been valid ated pursu ant to the CLIA regul ation s and is used for clini micky purpo ses. Not Available [facility] [address], [place], [address], 04/12/2024 16:25:19 04/07/2004/12/2024 LYNN C DISEA SE COMPR EHENS TORREY PANEL interpretati on No serol ogica l evide nce of lynn c disea se. tTG IgA may tanika lize in indiv idual s with lynn c disea se who maint ain a glute n-adilson e diet. Consi yunior HLA DQ2 and DQ8 testi ng to rule out lynn c disea se. Lynn c disea se is extre catrachito rare in the absen ce of DQ2 or DQ8. Not Available [address], [address], 04/12/2024 16:25:19 04/07/20 24 04/12/2024 LYNN C DISEA SE COMPR EHENS TORREY PANEL tissue transglutami nase Ab, IgA <1.0 U/mL Value Inter preta tion ----- ----- ----- ---- <15.0 Antib valeria not detec katya > or = 15.0 Antib valeria detec katya Not Available [address], [address], 04/12/2024 16:25:19 04/07/20 24 04/12/2024 LYNN C DISEA SE COMPR EHENS TORREY PANEL immunoglobul in A 204 mg/dL 47-310 Not Available [address], [address], 04/12/2024 16:25:19 06/02/20 24 06/02/2024 CBC WBC 7.9 x10 4.5-10 .5 Not Available [facility] [address], [place], [address], 06/02/2024 11:35:42 06/02/2006/02/2024 CBC RBC 5.69 x10 4.30-5 .90 Not Available [facility] [address] [facility] [address], [place], [address], 06/02/2024 11:35:42 06/02/20 24 06/02/2024 CBC HGB 16.6 g/dL 13.5-1 8.0 Not Available [facility] [address] [facility] [address], [place], [address], 06/02/2024 11:35:42 06/02/2006/02/2024 CBC HCT 50.0 % 35.0-6 0.0 Not Available [facility] [address] [facility] 1, [place], [address], 06/02/2024 11:35:42 06/02/2006/02/2024 CBC MCV 87.8 fL 80.0-9 9.9 Not Available [facility] [address] [facility] 1, [place], [address], 06/02/2024 11:35:42 06/02/2006/02/2024 CBC MCH 29.2 pg 27.0-3 2.0 Not Available [facility] [address] [facility] 1, [place], [address], 06/02/2024 11:35:42 06/02/2006/02/2024 CBC MCHC 33.3 g/dL 32.0-3 6.0 Not Available [facility] [address] [facility] 1, [place], [address], 06/02/2024 11:35:42 06/02/2006/02/2024 CBC RDW 15.2 % 11.5-1 4.5 high Not Available [facility] [address] [facility] 1, [place], [address], 06/02/2024 11:35:42 06/02/2006/02/2024 CBC plt 151.0 x10 150.0- 451.0 Not Available [facility] [address] [facility] 1, [place], [address], 06/02/2024 11:35:42 06/02/2006/02/2024 CBC lymphocytes % 30.2 % 20.0-5 0.0 Not Available [facility] [address] [facility] 1, [place], [address], 06/02/2024 11:35:42 06/02/20 24 06/02/2024 CBC granulcytes % 54.1 % 30.0-7 0.0 Not Available [facility] [address] [facility] 1, [place], [address], 06/02/2024 11:35:42 06/02/2006/02/2024 CBC monocytes % 8.3 % 2.0-16 .0 Not Available [facility] [address] [facility] 1, [place], [address], 06/02/2024 11:35:42 06/02/2006/02/2024 CBC granulcytes# 4.3 x10 Not Ivy ilable [facility] [address] [facility] 1, [place], [address], 06/02/2024 11:35:42 06/02/2006/02/2024 CBC lymphocytes # 2.4 x10 Not Available [facility] [address] [facility] 1, [place], [address], 06/02/2024 11:35:42 06/02/2006/02/2024 CBC monocytes # 0.7 x10 Not Avai lable [facility] [address] [facility] 1, [place], [address], 06/02/2024 11:35:42 06/02/2006/02/2024 CMP (MALE ) glucose 181.0 mg/dL 60.0-9 9.0 high Not Available [facility] [address] [facility] 1, [place], [address], 06/02/2024 15:26:24 06/02/20 24 06/02/2024 CMP (MALE ) BUN (blood urea nitrogen) 17.0 mg/dL 10.0-2 6.0 Not Available [facility] [address], [place], [address], 06/02/2024 15:26:24 06/02/20 24 06/02/2024 CMP (MALE ) creatinine (serum) 0.7 mg/dL 0.4-1. 5 Not Available [facility] [address] [facility] 1, [place], [address], 06/02/2024 15:26:24 06/02/20 24 06/02/2024 CMP (MALE ) BUN/creatini ne ratio 22.97 ratio Not Available [facility] [address] [facility] 1, [place], [address], 06/02/2024 15:26:24 06/02/20 24 06/02/2024 CMP (MALE ) eGFR calculated 117.2 Not Available [facility] [address] [facility] 1, [place], [address], 06/02/2024 15:26:24 06/02/20 24 06/02/2024 CMP (MALE ) total protein 6.9 g/dL 6.0-8. 5 Not Available [facility] [address] [facility] 1, [place], [address], 06/02/2024 15:26:24 06/02/20 24 06/02/2024 CMP (MALE ) total bilirubin 0.5 mg/dL 0.2-1. 3 Not Available [facility] [address] [facility] 1, [place], [address], 06/02/2024 15:26:24 06/02/20 24 06/02/2024 CMP (MALE ) albumin 4.3 g/dL 3.5-5. 5 Not Available [facility] [address] [facility] 1, [place], [address], 06/02/2024 15:26:24 06/02/20 24 06/02/2024 CMP (MALE ) globulin 2.6 calc Not Available [facility] [address] [facility] 1, [place], [address], 06/02/2024 15:26:24 06/02/20 24 06/02/2024 CMP (MALE ) AST (SGOT) 61.0 U/L 0.0-46 .0 high Not Available [facility] [address] [facility] 1, [place], [address], 06/02/2024 15:26:24 06/02/20 24 06/02/2024 CMP (MALE ) altv (SGPT) 103.0 U/L 13.0-6 9.0 abnormal Not Available [facility] [address] [facility] 1, [place], [address], 06/02/2024 15:26:24 06/02/20 24 06/02/2024 CMP (MALE ) A/G ratio 1.7 ratio Not Available [facility] [address] [facility] 1, [place], [address], 06/02/2024 15:26:24 06/02/20 24 06/02/2024 CMP (MALE ) ALP phos 73.0 U/L 30.0-1 40.0 normal Not Available [facility] [address] [facility] 1, [place], [address], 06/02/2024 15:26:24 06/02/20 24 06/02/2024 CMP (MALE ) calcium 9.4 mg/dL 8.4-10 .5 Not Available [facility] [address] [facility] 1, [place], [address], 06/02/2024 15:26:24 06/02/20 24 06/02/2024 CMP (MALE ) sodium 142.0 mmol/ L 136.0- 145.0 Not Available [facility] [address] [facility], [place], [address], 06/02/2024 15:26:24 06/02/20 24 06/02/2024 CMP (MALE ) potassium 4.2 mmol/ L 3.5-5. 1 Not Available [facility] [address] [facility] 1, [place], [address], 06/02/2024 15:26:24 06/02/20 24 06/02/2024 CMP (MALE ) chloride 107.0 mmol/ L 98.0-1 10.0 normal Not Available [facility] [address] [facility] 1, [place], [address], 06/02/2024 15:26:24 06/02/20 24 06/02/2024 CMP (MALE ) C02 27.0 mmol/ L 22.0-3 1.0 Not Available [facility] [address] [facility] 1, [place], [address], 06/02/2024 15:26:24 06/02/20 24 06/02/2024 CMP (MALE ) anion gap 8.0 calc Not Available [facility] [address] [facility] 1, [place], [address], 06/02/2024 15:26:24 06/02/20 24 06/02/2024 CMP (MALE ) osmolality 298.7 calc Not Available [facility] [address] [facility], [place], [address], 06/02/2024 15:26:24 06/02/20 24 06/02/2024 LIPID PROFI LE (MALE ) cholesterol 107.0 mg/dL 0.0-20 0.0 Not Available [facility] [address] [facility] 1, [place], [address], 06/02/2024 15:26:26 06/02/2006/02/2024 LIPID PROFI LE (MALE ) trig 89.0 mg/dL 0.0-15 0.0 Not Available [facility] [address] [facility] [address], [place], [address], 06/02/2024 15:26:26 06/02/20 24 06/02/2024 LIPID PROFI LE (MALE ) HDL - direct 44.0 mg/dL >40.0 Not Available [facility] [address] [facility] [address], [place], [address], 06/02/2024 15:26:26 06/02/20 24 06/02/2024 LIPID PROFI LE (MALE ) VLDL - direct 17.8 mg/dL Not Available [facility] [address] [facility] [address], [place], [address], 06/02/2024 15:26:26 06/02/20 24 06/02/2024 LIPID PROFI LE (MALE ) LDL - direct 45.2 mg/dL 0.0-13 0.0 Not Available [facility] [address] [facility] 1, [place], [address], 06/02/2024 15:26:26 06/02/20 24 06/05/2024 ALBUM IN, RANDO M URINE W/CRE ATINI NE creatinine, random urine 169 mg/dL 20-320 normal Not Available [facility] [address] [place], [address], 06/05/2024 16:45:42 06/02/2006/05/2024 ALBUM IN, RANDO M URINE W/CRE ATINI NE albumin, urine 9.5 mg/dL see note: normal Refer ence Range : Refer ence Range Not estab lishe d Not Available [facility] [address] [place], [address], 06/05/2024 16:45:42 06/02/2006/05/2024 ALBUM IN, RANDO M URINE W/CRE ATINI NE albumin/crea tinine ratio, random urine 56 mg/g_ creat <30 high The ADA defin es abnor malit ies in album in excre tion as follo ws: Album inuri a Categ ory Resul t (mg/g creat inine ) Tanika l to Mildl y incre ased <30 Moder ately incre ased 30-29 9 Sever jon incre ased > OR = 300 The ADA recom mends that at least two of three speci mens colle cted withi n a 3-6 month perio d be abnor mal befor e consi jeffrey g a patie nt to be withi n a diagn ostic categ ory. Not Available [facility] [address] [place], [address], 06/05/2024 16:45:42 06/02/20 24 06/02/2024 HbA1c (hemo globi n A1c), blood HbA1c 6.6 Not Available [facility] ([facility] [address] [place], [address], 06/02/2024 10:01:15 09/08/19 25 09/08/2024 HBA1C hemaglobin A1C 7.3 4.2-6. 5 high Not Available [facility] [address] [facility] [place], [address], 09/08/2024 11:00:47 09/08/19 25 09/08/2024 CBC WBC 8.8 x10 4.5-10 .5 Not Available [facility] [address] [facility] 1, [place], [address], 09/08/2024 11:01:04 09/08/19 25 09/08/2024 CBC RBC 5.51 x10 4.30-5 .90 Not Available [facility] [address] [facility] [address], [address], 09/08/2024 11:01:04 01/17/20 25 09/08/2024 CBC HGB 16.8 g/dL 13.5-1 8.0 Not Available [facility] [address] [facility] 1, [place], [address], 09/08/2024 11:01:04 09/08/19 25 09/08/2024 CBC HCT 48.3 % 35.0-6 0.0 Not Available [facility] [address] [facility] 1, [place], [address], 09/08/2024 11:01:04 09/08/1909/08/2024 CBC MCV 87.7 fL 80.0-9 9.9 Not Available [facility] [address] [facility] 1, [place], [address], 09/08/2024 11:01:04 09/08/19 25 09/08/2024 CBC MCH 30.4 pg 27.0-3 2.0 Not Available [facility] [address] [facility] 1, [place], [address], 09/08/2024 11:01:04 09/08/19 25 09/08/2024 CBC MCHC 34.7 g/dL 32.0-3 6.0 Not Available [facility] [address] [facility] 1, [place], [address], 09/08/2024 11:01:04 09/08/1909/08/2024 CBC RDW 14.8 % 11.5-1 4.5 high Not Available [facility] [address] [facility] 1, [place], [address], 09/08/2024 11:01:04 09/08/1909/08/2024 CBC plt 143.6 x10 150.0- 451.0 low Not Available [facility] [address] [facility] 1, [place], [address], 09/08/2024 11:01:04 09/08/19 25 09/08/2024 CBC lymphocytes % 26.5 % 20.0-5 0.0 Not Available [facility] [address] [facility] 1, [place], [address], 09/08/2024 11:01:04 09/08/19 25 09/08/2024 CBC granulcytes % 60.0 % 30.0-7 0.0 Not Available [facility] [address] [facility] 1, [place], [address], 09/08/2024 11:01:04 09/08/19 25 09/08/2024 CBC monocytes % 7.7 % 2.0-16 .0 Not Available [facility] [address] [facility], [place], [address], 09/08/2024 11:01:04 09/08/19 25 09/08/2024 CBC granulcytes# 5.3 x10 Not Ivy ilable [facility] [address] [facility] 1, [place], [address], 09/08/2024 11:01:04 09/08/19 25 09/08/2024 CBC lymphocytes # 2.3 x10 Not Available [facility] [address] [facility] 1, [place], [address], 09/08/2024 11:01:04 09/08/19 25 09/08/2024 CBC monocytes # 0.7 x10 Not Avai lable [facility] [address] [facility] 1, [place], [address], 09/08/2024 11:01:04 09/08/19 25 09/08/2024 CMP (MALE ) glucose 171.0 mg/dL 60.0-9 9.0 high Not Available [facility] [address] [facility] 1, [place], [address], 09/08/2024 12:21:17 09/08/19 25 09/08/2024 CMP (MALE ) BUN (blood urea nitrogen) 22.0 mg/dL 10.0-2 6.0 Not Available [facility] [address] [facility] [address], [place], [address], 09/08/2024 12:21:17 09/08/19 25 09/08/2024 CMP (MALE ) creatinine (serum) 0.9 mg/dL 0.4-1. 5 Not Available [facility] [address] [facility] [address], [place], [address], 09/08/2024 12:21:17 09/08/19 25 09/08/2024 CMP (MALE ) BUN/creatini ne ratio 24.44 ratio Not Available [facility] [address] [address], [place], [address], 09/08/2024 12:21:17 09/08/19 25 09/08/2024 CMP (MALE ) eGFR calculated 93.5 Not Available [facility] [address] [facility], [place], [address], 09/08/2024 12:21:17 09/08/19 25 09/08/2024 CMP (MALE ) total protein 7.1 g/dL 6.0-8. 5 Not Available [facility] [address] [facility], [place], [address], 09/08/2024 12:21:17 09/08/19 25 09/08/2024 CMP (MALE ) total bilirubin 0.5 mg/dL 0.2-1. 3 Not Available [facility] [address] [facility], [place], [address], 09/08/2024 12:21:17 09/08/19 25 09/08/2024 CMP (MALE ) albumin 4.2 g/dL 3.5-5. 5 Not Available [facility] [address] [facility], [place], [address], 09/08/2024 12:21:17 09/08/19 25 09/08/2024 CMP (MALE ) globulin 2.9 calc Not Available [facility] [address] [facility] [address], [place], [address], 09/08/2024 12:21:17 09/08/19 25 09/08/2024 CMP (MALE ) AST (SGOT) 41.0 U/L 0.0-46 .0 Not Available [facility] [address] [facility] [address], [place], [address], 09/08/2024 12:21:17 09/08/19 25 09/08/2024 CMP (MALE ) altv (SGPT) 71.0 U/L 13.0-6 9.0 abnormal Not Available [facility] [address] [facility] [address], [place], [address], 09/08/2024 12:21:17 09/08/19 25 09/08/2024 CMP (MALE ) A/G ratio 1.4 ratio Not Available [facility] [address] [facility] [address], [place], [address], 09/08/2024 12:21:17 09/08/19 25 09/08/2024 CMP (MALE ) ALP phos 83.0 U/L 30.0-1 40.0 normal Not Available [facility] [address] [facility] [address], [place], [address], 09/08/2024 12:21:17 09/08/19 25 09/08/2024 CMP (MALE ) calcium 8.8 mg/dL 8.4-10 .5 Not Available [facility] [address] [facility] [address], [place], [address], 09/08/2024 12:21:17 09/08/19 25 09/08/2024 CMP (MALE ) sodium 143.0 mmol/ L 136.0- 145.0 Not Available [facility] [address] [facility] [address], [place], [address], 09/08/2024 12:21:17 09/08/19 25 09/08/2024 CMP (MALE ) potassium 4.2 mmol/ L 3.5-5. 1 Not Available [facility] [address] [facility] [address], [place], [address], 09/08/2024 12:21:17 09/08/19 25 09/08/2024 CMP (MALE ) chloride 107.0 mmol/ L 98.0-1 10.0 normal Not Available [facility] [address] [facility] [address], [place], [address], 09/08/2024 12:21:17 09/08/19 25 09/08/2024 CMP (MALE ) C02 28.0 mmol/ L 22.0-3 1.0 Not Available [facility] [address] [facility] [address], [place], [address], 09/08/2024 12:21:17 09/08/19 25 09/08/2024 CMP (MALE ) anion gap 8.0 calc Not Available [facility] [address] [facility] [address], [place], [address], 09/08/2024 12:21:17 09/08/19 25 09/08/2024 CMP (MALE ) osmolality 301.9 calc Not Available [facility] [address] [facility] [address], [place], [address], 09/08/2024 12:21:17 09/08/19 25 09/08/2024 LIPID PROFI LE (MALE ) cholesterol 179.0 mg/dL 0.0-20 0.0 Not Available [facility] [address] [address], [place], [address], 09/08/2024 12:21:20 09/08/19 25 09/08/2024 LIPID PROFI LE (MALE ) trig 227.0 mg/dL 0.0-15 0.0 high Not Available [facility] [address] [facility] [address], [place], [address], 09/08/2024 12:21:20 09/08/19 25 09/08/2024 LIPID PROFI LE (MALE ) HDL - direct 41.0 mg/dL >40.0 Not Available [facility] [address] [facility] [address], [place], [address], 09/08/2024 12:21:20 09/08/19 25 09/08/2024 LIPID PROFI LE (MALE ) VLDL - direct 45.4 mg/dL Not Available [facility] [address] [address], [place], [address], 09/08/2024 12:21:20 09/08/19 25 09/08/2024 LIPID PROFI LE (MALE ) LDL - direct 92.6 mg/dL 0.0-13 0.0 Not Available [address] [address], [place], [address], 09/08/2024 12:21:20 09/08/19 25 09/09/2024 ALBUM IN, RANDO M URINE W/CRE ATINI NE creatinine, random urine 211 mg/dL 20-320 normal Not Available [facility] [address], [place], [address], 09/09/2024 05:22:35 09/08/19 25 09/09/2024 ALBUM IN, RANDO M URINE W/CRE ATINI NE albumin, urine 12.3 mg/dL see note: normal Refer ence Range : Refer ence Range Not estab lishe d Not Available [address] [address] [place], [address], 09/09/2024 05:22:35 09/08/19 25 09/09/2024 ALBUM IN, RANDO M URINE W/CRE ATINI NE albumin/crea tinine ratio, random urine 58 mg/g_ creat <30 high The ADA defin es abnor malit ies in album in excre tion as follo ws: Album inuri a Categ ory Resul t (mg/g creat inine ) Tanika l to Mildl y incre ased <30 Moder ately incre ased 30-29 9 Sever jon incre ased > OR = 300 The ADA recom mends that at least two of three speci mens colle cted withi n a 3-6 month perio d be abnor mal befor e consi jeffrey g a patie nt to be withi n a diagn ostic categ ory. Not Available [address] [address] [address], [place], [address], 09/09/2024 05:22:35 09/08/1909/09/2024 PSA, TOTAL PSA, total 0.25 NG/mL < or = 4.00 normal The total PSA value from this assay syste m is stand ardiz ed again st the WHO stand theresa. The test resul t will be appro ximat jon 20% lower when bean red to the equim olar- stand ardiz ed total PSA (V[facility] man Coul[facility] er). Bean rison of seria l PSA resul ts shoul d be inter prete d with this fact in mind. This test was perfo rmed using the Sieme ns chemi lumin escen t metho d. Value s obtai niraj from diffe rent assay metho ds canno t be used inter stiles eably . PSA level s, regar dless of value , shoul d not be inter prete d as absol ouzinkie evide nce of the prese nce or absen ce of disea se. Not Available [facility] [address] [address] [address], [place], [address], 09/09/2024 05:22:37 06/23/20 24 06/22/2024 US, abdom en, limit ed No observ ation record ed. [facility] [address] [place], [address], 09/08/2024 10:15:50 Result Notes None recorded. Procedures Surgical History Date Name Laterality Status Provider Name and Address Organization Details Recorded Time 06/22/20 24 ultrasonography of abdomen completed [facility] 06/26/2024 11:15:39 01/07/[address] of abdomen completed [facility] 01/15/2024 15:08:52 12/15/19 24 ultrasonography completed [facility] 12/22/2023 13:32:47 07/13/20 23 plain X-ray of chest completed [facility] 07/14/2023 11:32:32 Imaging Results None recorded. Procedure Notes None recorded. Medical Equipment None Reported. Allergies Allergen ID Allergen Name Allergen Category Reaction Reaction Severity Criticality Documentation Date Start Date Code Code System Note Provider Name and Address Organization Details Recorded Time 69246 Bactrim medicatio n diarrhea moderate low 07/07/2023 17390 9 RxNorm [facility] 15:09:08 Medications Name Sig Start Date Stop Date Status Note LastModified by Organization Details LastModified Time quetiapin e 25 mg tablet TAKE 1 TABLET BY MOUTH EVERYDAY AT BEDTIME 04/07 completed Not Available Not Available Not Available metformin 500 mg tablet TAKE TWO TABLETS BY MOUTH TWICE DAILY 07/13 completed Not Available Not Available Not Available promethaz ine-DM 6.25 mg-15 mg/5 mL oral syrup Take 5 mL every 4 hours by oral route for 5 days. 12/02 completed Not Available Not Available Not Available sildenafi l 50 mg tablet TAKE 1 TABLET BY MOUTH ONCE DAILY NEEDED active Not Available Not Available No t Available ibuprofen 800 mg tablet three times daily 07/07 completed not ordered; 6; Recorded 03/27/20 11 4:21PM by Yany Hope LPN (Authori zed through Bud Zhang MD), Office Visit; Refill Quantity : 0; Not Available Not Available Not Available meloxicam 15 mg tablet TAKE 1 TABLET BY MOUTH ONCE DAILY active Not Available Not Available No t Available penicilli n V potassium 500 mg tablet Take 1 tablet 3 times a day by oral route for 10 days. 06/02 completed Not Available Not Available Not Available ciproflox acin 500 mg tablet TAKE ONE TABLET BY MOUTH EVERY TWELVE HOURS FOR 7 DAYS 07/07 completed Not Available Not Available Not Available quetiapin e 100 mg tablet Take 1 tablet every day by oral route at bedtime for 90 days. 12/02 completed Not Available Not Available Not Available triamcino lone acetonide 0.1 % topical cream Apply 1 applicat ion twice a day by topical route for 7 days. 2024 active Not Available Not Available Not Avai lable meloxicam 7.5 mg tablet TAKE 1 TABLET BY MOUTH ONCE DAILY 06/02 completed Not Available Not Available Not Available tamsulosi n 0.4 mg capsule TAKE 1 CAPSULE BY MOUTH ONCE DAILY active Not Available Not Available No t Available insulin aspart U-100 100 unit/mL subcutane ous solution INJECT 150 UNITS VIA INSULIN PUMP DIRECTED active Not Available Not Available No t Available simvastat in 20 mg tablet TAKE 1 TABLET BY MOUTH ONCE DAILY AT BEDTIME active Not Available Not Available No t Available triamcino lone acetonide 0.1 % topical ointment APPLY 1 APPLICAT ION TOPICALL Y THREE TIMES DAILY NEEDED FOR ITCHING 06/02 completed Not Available Not Available Not Available ranitidin e 150 mg tablet two times daily 07/07 completed 6; Recorded 03/27/20 11 4:22PM by Yany Hope LPN (Authori zed through Bud Zhang MD), Office Visit; Refill Quantity : 0; Not Available Not Available Not Available clotrimaz ole-betam ethasone 1 %-0.05 % topical cream APPLY TO AFFECTED AREA TWICE A DAY FOR 2 WEEKS IN THE MORNING AND EVENING (AND SURROUND ING AREAS) 12/02 completed Not Available Not Available Not Available lisinopri l 10 mg tablet TAKE ONE TABLET BY MOUTH DAILY 07/07 completed Not Available Not Available Not Available nystatin- triamcino lone 100,000 unit/g-0. 1 % topical cream APPLY TO THE AFFECTED AREA 2 TIMES DAILY IN THE MORNING AND EVENING 2024 active Not Available Not Available Not Avai lable gabapenti n 300 mg capsule TAKE 1 CAPSULE BY MOUTH THREE TIMES DAILY . APPOINTM ENT REQUIRED FOR FUTURE REFILLS active Not Available Not Available No t Available pravastat in 20 mg tablet TAKE ONE TABLET BY MOUTH DAILY 07/07 completed Not Available Not Available Not Available insulin lispro (U-100) 100 unit/mL subcutane ous solution INJECT 150 UNITS PER DAY VIA INSULIN PUMP active Not Available Not Available No t Available amoxicill in 875 mg-potass ium clavulana te 125 mg tablet TAKE 1 TABLET BY MOUTH EVERY 12 HOURS FOR 10 DAYS 09/08 completed Not Available Not Available Not Available insulin lispro (U-100) 100 unit/mL subcutane ous pen INJECT 5 UNITS SUBCUTAN EOUSLY THREE TIMES DAILY active Not Available Not Available No t Available pen needle, diabetic 31 gauge x 5/16 Use as directed for insulin 12/02 completed Not Available Not Available Not Available ezetimibe 10 mg tablet TAKE 1 TABLET BY MOUTH ONCE DAILY active Not Available Not Available No t Available Novolog FlexPen U-100 Insulin aspart 100 unit/mL (3 mL) subcutane ous Inject 20 units 3 times a day by subcutan eous route with meal(s) for 30 days. 12/02 completed Not Available Not Available Not Available Crestor 10 mg tablet Take 1 tablet every day by oral route for 90 days. 04/12 completed Not Available Not Available Not Available tadalafil 10 mg tablet TAKE 1 TABLET BY MOUTH ONCE DAILY NEEDED FOR 10 DAYS active Not Available Not Available No t Available Acetamino phen-Hydr ocodone four times daily, as needed 07/07 completed nolt ordered; 6; Recorded 03/27/20 11 4:21PM by Yany Hope LPN (Authori alondra through Bud Zhang MD), Office Visit; Refill Quantity : 0; Not Available Not Available Not Available gabapenti n two times daily 07/07 completed not ordered; 6; Recorded 03/27/20 11 4:21PM by Yany Hope LPN (Authori alondra through Bud Zhang MD), Office Visit; Refill Quantity : 0; Not Available Not Available Not Available Levemir U-100 Insulin 100 unit/mL subcutane ous solution INJECT 15 UNITS UNDER SKIN AT BEDTIME 07/13 completed Not Available Not Available Not Available Levemir FlexPen 100 unit/mL (3 mL) solution subcutane ous insulin pen INJECT 10 UNITS EVERY DAY BY SUBCUTAN EOUS ROUTE FOR 30 DAYS. 04/07 completed Not Available Not Available Not Available sodium chloride 1,000 mg soluble tablet TAKE ONE TABLET BY MOUTH DAILY 07/07 completed Not Available Not Available Not Available quetiapin e 50 mg tablet TAKE 1 TABLET BY MOUTH ONCE DAILY AT BEDTIME FOR SLEEP active Not Available Not Available No t Available Symbicort 160 mcg-4.5 mcg/actua tion HFA aerosol inhaler INHALE 2 PUFFS BY MOUTH TWICE DAILY active Not Available Not Available No t Available OneTouch Verio test strips USE TO CHECK GLUCOSE THREE TIMES DAILY 2024 active Not Available Not Available Not Avai lable OneTouch Verio Flex Meter TEST BLOOD SUGAR FOUR TIMES DAILY 12/02 completed Not Available Not Available Not Available Dexcom G6 Transmitt er device USE DIRECTED , CHANGE EVERY 3 MONTH active Not Available Not Available No t Available OneTouch Delica Plus Lancet 33 gauge TEST BLOOD SUGAR FOUR TIMES DAILY 12/02 completed Not Available Not Available Not Available Voltaren Arthritis Pain 1 % topical gel APPLY 2 GRAMS TO THE AFFECTED AREA(S) BY TOPICAL ROUTE 4 TIMES PER DAY 12/02 completed Not Available Not Available Not Available Omnipod 5 G6 Pods (Gen 5) subcutane ous cartridge CHANGE POD EVERY 3 DAYS 06/02 completed Not Available Not Available Not Available Dexcom G7 Riprap Man USE DIRECTED active Not Available Not Available No t Available Dexcom G7 Sensor device CHANGE SENSOR EVERY 10 DAYS active Not Available Not Available No t Available Omnipod 5 G6-G7 Pods (Gen 5) subcutane ous cartridge USE DIRECTED , CHANGE EVERY 3 DAYS active Not Available Not Available No t Available Vitals Date Recorded Body height Body mass index (BMI) Body weight Oxygen saturation Oxygen saturation in Arterial blood by Pulse oximetry Heart rate Respiratory rate Systolic And Diastolic Provider Name and Address Organization Details Last Updated DateTime 5 172.72 cm 24.9 kg/m2 91180.1 5 g 95 % 95 % 92 /min 22 /min 160/92 mm[Hg] [facility] 09:56:25 Date Recorded Body height Body mass index (BMI) Body weight Oxygen saturation Oxygen saturation in Arterial blood by Pulse oximetry Heart rate Respiratory rate Systolic And Diastolic Provider Name and Address Organization Details Last Updated DateTime 5 172.72 cm 25.7 kg/m2 37227.1 1 g 97 % 97 % 70 /min 20 /min 158/82 mm[Hg] [facility] 5 09:46:28 Date Recorded Body height Body mass index (BMI) Body weight Oxygen saturation Oxygen saturation in Arterial blood by Pulse oximetry Heart rate Respiratory rate Systolic And Diastolic Provider Name and Address Organization Details Last Updated DateTime 4 172.72 cm 23 kg/m2 75156.4 5 g 97 % 97 % 96 /min 18 /min 160/90 mm[Hg] [facility] 4 10:53:26 Date Recorded Body height Body mass index (BMI) Body weight Oxygen saturation Oxygen saturation in Arterial blood by Pulse oximetry Heart rate Respiratory rate Systolic And Diastolic Systolic And Diastolic Provider Name and Address Organization Details Last Updated DateTime 4 172.72 cm 23.7 kg/m2 83757.4 1 g 96 % 96 % 90 /min 20 /min 160/100 mm[Hg] 154/98 mm[Hg] JOSE ALEJANDRO PRECIADO [facility] 10:03:40 Social History Question Answer Notes LastModified by Organizat ion Details LastModified Time Tobacco Smoking Status Current Every Day Smoker [facility] 12/03/2023 11:02:51 What Is Your Level Of Caffeine Consumption? Moderate [email or web address] Information not available 04/07/2024 What Is Your Relationship Status? Single [email or web address] Information not available 12/03/2023 Have You Recently Traveled Abroad? No [email or web address] Information not available 04/07/2024 Sex: Unknown Functional Status Question Answer Note LastModified by Organizat ion Details LastModified Time Do you use any illicit or recreational drugs? No [email or web address] Information not available 12/03/2023 What is your level of alcohol consumption? None Information not available 12/03/2023 Are you currently employed? Yes [email or web address] Information not available 12/03/2023 Are you able to care for yourself independently? Yes [email or web address] Information not available 12/03/2023 Mental Status None recorded. Family History Relationship Description Onset Age of this Age Resolved Age Notes LastModified by Organization Details LastModified Time Daughter Type 2 diabetes mellitus [email or web address] Not available 04/07 10:55:15 Son Type 2 diabetes mellitus [email or web address] Not available 04/07 10:55:15 Father Malignant neoplastic disease Unknow n which kind [email or web address] Not available 04/07/2024 10:56:01 Medical History Condition Response Diabetes Y Anxiety Disorder Y High Cholesterol Y Hypertension Y Immunizations Vaccine Type Date Status Note Provider Nam e and Address Organization Details Recorded Time Tdap 11/21/2013 completed [facility] 07/07/2023 10:14:26 Past Encounters Encounter ID Performer Location Encounter Start Date Encounter Closed Date Diagnosis/Indication Diagnosis SNOMED-CT Code Diagnosis ICD10 Code Diagnosis Note [id number] GUCCI URBINA [facility] ([facility]) [address] [place] [phone] 07/07/2023 09:51:34 07/07/2023 14:24:34 Pain of right shoulder joint 9978186840 1956302 M25.511 Normal exam today. Discussed with patient that this pain is likely muscular. Will start meloxicam daily for 10 days. Patient has a follow up with PCP next week. Encouraged to keep this appointmen t. [id number] XENIA PAGAN [facility] ([facility]) [address] [place] [id number] 5 07/13/2023 14:52:56 07/13/2023 15:57:25 Type 2 diabetes mellitus 13238768 E11.42 Nocturia 797520242 R35.1 Pain of mu ltiple joints 71973492 M25.50 Skin irritation 32656372 7 L30.9 Wheezing 99641179 R06.2 Insomnia 734264662 G47.0 0 [id number] XENIA PAGAN [facility] ([facility]) [address] [place] [id number] 5 08/13/2023 09:48:45 08/13/2023 11:56:39 Uncontrolled type 2 diabetes mellitus 929153158 E11.65 He is wondering about getting an insulin pump again. Insomnia 627441321 G47.0 0 He has been taking 50mg and he reports it helps him get to sleep but not stay asleep. Pain of bi lateral knee joints 2724571576 63207 M25.683 [id number] XENIA PAGAN [facility] ([facility]) [address] [place] [address] [id number] 5 12/03/2023 09:57:10 12/03/2023 11:17:54 Uncontrolled type 2 diabetes mellitus 957875048 E11.[address] Hammond. Left lower quadrant pain 151071225 R10.32 Benign pro static hyperplasia 544184399 N40.0 He has been out of medication for a while. Erectile dysfunction 860 438495 F52.21 Change in stool caliber 42097970 R19.5 Stools have gotten thinner at times he is having incontinen ce. Pain of mu ltiple joints 17336081 M25.50 Insomnia 610399769 G47.0 0 [id number] CORINA HAY [facility] ([facility]) [address] [place] [address] [id number] 5 12/15/2023 15:47:22 12/15/2023 17:19:55 Left lower quadrant pain 116043453 R10.32 [id number] CORINA HAY [facility] ([facility]) [address] [place] [address] [id number] 04/07/2024 10:16:54 04/07/2024 11:43:31 Abdominal pain 78957172 R10.9 Last colonoscop y 8 months ago, normal per patient. CT of abdomen/pe lvis, ultrasound from November with no acute findings. Erectile dysfunction 860 673958 F52.21 Atopic dermatitis 737627 01 L20.9 Pain of mu ltiple joints 09502763 M25.50 Benign pro static hyperplasia 021288732 N40.0 Tamsulosin helping. Chronic insomnia 0549954 04 F51.04 Quetiapine helping him rest well. [id number] CORINA HAY [facility] ([facility]) [address] [place] [address] [id number] 06/02/2024 09:14:32 06/02/2024 10:31:08 Type 2 diabetes mellitus without complication 257539621 E11.9 Erectile dysfunction 860 014981 F52.21 Patient reports Cialis didn't even start to help. Diarrhea 56585994 R19.7 Acute maxi llary sinusitis 23715942 J01.00 [id number] CORINA HAY [facility] ([facility]) [address] [place] [address] [id number] 06/22/2024 08:34:00 06/23/2024 11:59:07 [id number] CORINA HAY [facility] ([facility]) [address] [place] [address] [id number] 09/08/2024 09:35:20 09/08/2024 10:25:39 Abdominal pain 24656184 R10.9 Last colonoscop y 8 months ago, normal per patient. CT of abdomen/pe lvis, ultrasound from November with no acute findings. Pain in his groin and the right and left upper quadrant. Erectile dysfunction 860 711710 F52.21 Patient reports Cialis didn't even start to help. Benign ess ential hypertension 2496158 I10 Blood pressure good at home. A little elevated here. Skin irritation 84814464 7 L30.9 Type 2 mary betes mellitus 51958653 E11.42 [id number] CORINA HAY, XENIA [facility] ([facility]) [address] [place] [address] 03/16/2025 08:46:28 03/16/2025 10:24:51 Tick bite 02664592 W57.XXXA Well contr olled type 2 diabetes mellitus 842444932 E11.[address] Hammond. Last A1C 7.9 Health Concerns Section Related Observation LastModified by Organization Detai ls LastModified Time None Recorded Concern Status LastModified by Organization Details LastModified Time None Recorded Advance Directives Directive None Recorded Payers Insurance Date Sequence Insurance Name Policy Number Policy Christian Covered Member ID Christian Member ID Guarantor Name 03/13/2025 1 [employer] [place]MED[place]AC[place] - [place]MO) [id number] Will Lambert [id number] Will Lambert 03/13/2025 [place] [facility] Will Lambert Jr [id number] Will Lambert 09/08/2024 1 [place] Will Lambert Jr [id number] Will Lambert
--- OUTSIDE RECORDS SUMMARY | 2025-03-19 15:29 | XMS_ITS | Patient Health Record ---
Author Organization [facility] Address [address] [place] [address] Care Team Providers Care Jewel Sorter Name Role Phone Becky Dillon Primary Care Provider BECKY DILLON Unavailable Unavailable Migration, Provider Unavailable Unavailable Allergies Allergen (clinical drug ingredient) Drug/Non Drug Allergy documented on EMR Reaction Allergy Type Onset Date Status sulfamethoxazole / trimethoprim Bactrim Unknown Drug Allergy Active Reason For Referral No Information Medications Medication SIG (Take, Route, Frequency, Duration) Notes Start Date End Date Status OneTouch Verio - Strip TEST BLOOD SUGAR FOUR TIMES DAILY; Duration: 25 Active Gabapentin 300 MG Capsule 1 capsule Orally Once a day; Duration: 30 day(s) 10/19/2022 Active Gabapentin *[facility] for eRX* Active OneTouch Delica Plus [id number] - Miscellaneous TEST BLOOD SUGAR FOUR TIMES DAILY; Duration: 25 Active NovoLOG FlexPen 100 UNIT/ML Solution Pen-injector as directed - see notes Subcutaneous with meals; Duration: 30 days Aggressive sliding scale: BS 150-200 take 4 units, 201-250 take 6 units, 251-300 take 10 units, 301-350 take 12 units, 351-or above 15 units 10/19/2022 Active Levemir 100 UNIT/ML Solution 15 units Subcutaneous HS; Duration: 30 days 10/19/2022 Active Novolog PenFill U-100 Insulin *Reorder from [facility] for eRx and Interaction Alerts* Active Tylenol [facility]* Active Albuterol Sulfate *[facility]* Active SEROquel *[facility]* Active Meloxicam *[facility]* Active Levemir FlexTouch U100 Insulin *Reorder from [facility] for eRx and Interaction Alerts* Active Social History Tobacco Use: Social History Observation Description Date Details (start date - stop date) Current Smoker NA - NA Social History Depression Screening Social Info Question Answer Notes PHQ-9 Little interest or pleasure in doing thin gs Not at all Feeling down, depressed, or hopeless Not at all Trouble falling or staying asleep, or sleeping t oo much Not at all Feeling tired or having little energy Not at all Poor appetite or overeating Not at all Feeling bad about yourself, or that you are a failure, or have let yourself or your family down Not at all Trouble concentrating on thi ngs, such as reading the newspaper or watching television Not at all Moving or speaking so slowly that other people could have noticed. Or the opposite ? being so fidgety or restless that you have been moving around a lot more than usual Not at all Thoughts that you would be b cecile off , or of hurting yourself in some way Not at all Total Score 0 Drugs/Alcohol: Social Info Question Answer Notes Alcohol Screen (Audit-C) Did you have a drink containing alcohol in the past year? No Points 0 Interpretation Negative Tobacco Use: Social Info Question Answer Notes xTobacco Use/Smoking Are you a current smoker How often do you smoke cigarettes? every day Additional Details Category Social Info Options Details [...] - 1 PPD, Working currently? - No Section Notes: 10-19-22 PHQ9 10-19-22 PHQ9 Problems Problem Type SNOMED Code ICD Code Onset Dates Problem Status W/U Status Risk Notes Problem Neuropathy (384615297) Neuropathy (G62.9) Active confirmed Problem Type II diabetes mellitus without complication (692621048) Diabetes (E11.9) Active confirmed Problem Benign prostatic hyperplasia (554999101) BPH (benign prostatic hyperplasia) (N40.0) Active confirmed Problem Long-term current use of insulin (903747158) Current use of insulin (Z79.4) Active confirmed Encounters Encounter Location Date Provider Diagnosis Migrated_Facility 0 0 06/18/2024 Provider Migration Migrated_Facility 0 0 06/17/[address] [facility] [id number] [place] [address] [place] [phone] 05/08/2024 Becky Dillon Plan Of Treatment No Information Insurance Providers Payer Name Payer Address Payer Phone Subscriber Number Group Number Insured Name Patient Relationship to Insured Coverage Start Date Coverage End Date [place] Medicaid [address] [place] [address] [id number] Will Lambert Self - patient is the insured Medical (General) History Surgical History Surgery Date(Month/Year) left knee surgery Neck Bone graft
[2025-03-19 15:44] VITALS: BP 145/74; PULSE 100; RESP 16; TEMP 37.1; O2SAT 93
--- NOTE | 2025-03-19 15:53 | XRR_ITS ---
PROCEDURE INFORMATION: Exam: XR Right Foot Exam date and time: 03/19/2025 3:59 PM Age: 55 years old Clinical indication: Condition or disease; Other: Great toe infection/diabetic TECHNIQUE: Imaging protocol: Radiologic exam of the right foot. Views: 3 or more views. COMPARISON: No relevant prior studies available. FINDINGS: Bones/joints: Age-indeterminate oblique fracture through the distal shaft of the 1st proximal phalanx with impaction and mild dorsal angulation of the distal fracture fragment. No other acute osseous abnormality identified. Joint spaces aligned and maintained. Soft tissues: Focal soft tissue swelling overlying the 1st toe. XR/XR foot RT min 3V* 70082 IMPRESSION: Age-indeterminate oblique fracture through the distal shaft of the 1st proximal phalanx with impaction and mild dorsal angulation of the distal fracture fragment. Mild overlying soft tissue swelling. No definitive findings of osteomyelitis, consider follow-up MRI with and without contrast for further evaluation if clinically indicated.
--- NOTE | 2025-03-19 15:55 | W.ED.EXTPRO ---
HPI - Extremity Problem General: Chief complaint: Extremity Injury, Lower Stated complaint: R foot big toe swelling, pain, blisters Time Seen by Provider: 03/19/25 15:45 Source: patient Mode of arrival: ambulatory Limitations: no limitations History of Present Illness: Patient is a 55-year-old male presents to ED today with a concern of 2 blisters forming to his right great toe-noticed today. Patient states he is a diabetic. He reportedly had an appointment with Dr. Rosas an hour ago but missed it as he is stubborn and did not want to take off work. He states that sugars over the weekend were running over 300. Currently they are 140s via his continual glucose monitoring. No systemic symptoms. MD Complaint: other (foot infection) Location: right and lower extremity Radiation: none Relieving factors: nothing Exacerbating factors: nothing Associated symptoms: Reports no associated symptoms; Deny fever(s) Related Data Home Medications ?Medication ?Instructions ?Recorded ?Confirmed budesonide-formoterol HFA 160 2 puff inhalation BID 10/01/23 02/14/25 mcg-4.5 mcg/actuation aerosol inhaler (Symbicort) Previous Rx's ?Medication ?Instructions ?Recorded albuterol sulfate 90 mcg/actuation 2 puff inhalation Q6H PRN 10/06/19 aerosol inhaler (ProAir HFA) shortness of breath or wheezing #8.5 grams cpap #1 ea 11/16/19 pen needle, diabetic 32 gauge x #100 ea 12/08/19 (1st Tier Unifine Pentips) gabapentin 300 mg capsule 300 mg PO TID #90 caps 05/03/23 pen needle, diabetic 31 gauge x #100 ea 05/03/2301/05 (Comfort EZ Pen [place]) pravastatin 20 mg tablet 20 mg PO DAILY #90 tabs 05/03/23 tamsulosin 0.4 mg capsule (Flomax) 0.4 mg PO DAILY #90 caps 05/03/23 diabetic shoes with 3 inserts #1 ea 06/15/23 insulin pump cartridge,automated #1 ea 09/01/23 dose,BT with controller subcutaneous (Omnipod 5 G6 Intro Kit (Gen 5) subcutaneous cartridge with controller) triamcinolone acetonide 0.1 % 1 applic topical TID PRN Itching 03/27/24 topical ointment #15 grams blood-glucose,sales advisory manager,cont #1 ea 11/22/24 (Dexcom G7 Creative Project Manager) insulin pump cart,auto,BT,G6/7 #5 ea 12/12/24 (Omnipod 5 G6-G7 Pods (Gen 5) subcutaneous cartridge) blood-glucose sensor (Dexcom G7 #3 ea 12/19/24 Sensor device) ezetimibe 10 mg tablet (Zetia) 10 mg PO DAILY #30 tabs 12/22/24 insulin lispro 100 unit/mL See Rx Instructions .Route 03/05/25 subcutaneous solution .COMPLEX #130 mL Allergies Allergy/AdvReac Type Severity Reaction Status Date / Time sulfamethoxazole (From Allergy Unknown Verified 02/14/25 12:35 Bactrim) trimethoprim (From Bactrim) Allergy Unknown Verified 02/14/25 12:35 citalopram (From Celexa) AdvReac shakes Verified 02/14/25 12:35 Review of Systems Const: Denies: fever(s), chills, body aches, fatigue or malaise Musc: Reports: extremity pain; Denies: extremity swelling, joint pain or joint swelling Skin/Breast: Reports: erythema (R great toe) PFSH ED PFSH: Medical History Leg pain Generalized anxiety disorder Major depressive disorder, recurrent severe without psychotic features Post-traumatic stress disorder, unspecified Diabetes mellitus Hypertension Hyperlipidemia RALPH (obstructive sleep apnea) GERD (gastroesophageal reflux disease) Depression with anxiety Osteoarthritis Family History Family/Other Diabetes Father Hypertension Social History Smoking and tobacco/nicotine status: never used tobacco/nicotine Quit status (tobacco/nicotine): not considering quitting Second hand smoke exposure: Yes Alcohol intake: never Substance/Drug Use: never Lives independently: Yes Marital status: single service: No Current occupational status: employed Current gender identity: Male Special radha needs: No Agree to transfusion: Yes Physical Exam Const: COMMON NORMALS: no acute distress, average body habitus, no limitations, healthy appearing, alert and well nourished Extremity: COMMON NORMALS: full ROM and capillary refill normal GENERAL: Yes normal exam except as noted LEFT LOWER EXTREMITY: Yes foot & digits Left foot and digits: Yes neurovascular exam (normal) OTHER: pt has one ruptured (dorsal/medial surface) and one intact (plantar surface) blister to R great toe; there is mild erythema and warmth; no streaking Neuro: COMMON NORMALS: moves all extremities, no focal motor deficits and no sensory deficits noted SENSORIUM/ORIENTATION: Yes alert Course Vital Signs: Vital signs: Vital Signs Temperature 98.8 F 03/19/25 15:44 Pulse Rate 100 03/19/25 15:44 Respiratory Rate 16 03/19/25 15:44 Blood Pressure 145/74 03/19/25 15:44 Pulse Oximetry 93 03/19/25 15:44 Oxygen Delivery Me thod Room Air 03/19/25 15:44 MDM - Extremity (Nontraumatic) Medical Decision Making We were able to contact [facility] podiatry and Dr. Rosas was graciously willing to work patient in during the last hour of his clinic. Recommending he go straight there upon discharge. He is not tachycardic or febrile. Blood work was initially ordered but I do not believe this was completed prior to him going straight to podiatry. Medical Records I reviewed the patient's medical records. No radiology studies performed this visit Discharge Plan Discharge Patient Disposition: Home Clinical Impression: Blister of great toe, right, infected Qualifiers: Encounter type: initial encounter Qualified Code(s): S90.421A - Blister (nonthermal), right great toe, initial encounter Condition: Stable Prescriptions: No Action (DME) cpap Qty: 1 0RF Rx Instructions: As directed gabapentin 300 mg capsule 300 mg PO TID Qty: 90 0RF Patient Comments: Pt states he takes 600mg qhs pravastatin 20 mg tablet 20 mg PO DAILY Qty: 90 0RF (DME) pen needle, diabetic [Comfort EZ Pen [place]] 31 gauge x 5/16 needle See Rx Instructions .Route Qty: 100 11RF Rx Instructions: As directed tamsulosin [Flomax] 0.4 mg capsule 0.4 mg PO DAILY Qty: 90 0RF (DME) diabetic shoes with 3 inserts See Rx Instructions .Route .MEDSUPPLY Qty: 1 0RF Rx Instructions: As directed to the [facility] [place] ezetimibe [Zetia] 10 mg tablet 10 mg PO DAILY Qty: 30 3RF albuterol sulfate [ProAir HFA] 90 mcg/actuation HFA aerosol inhaler 2 puff INHALATION Q6H PRN (Reason: shortness of breath or wheezing) Qty: 8.5 0RF (DME) pen needle, diabetic [1st Tier Unifine Pentips] 32 gauge x 5/32 needle See Rx Instructions .ROUTE .MEDSUPPLY Qty: 100 1RF Rx Instructions: 1 qid to give insulin (DME) Omnipod 5 G6 Intro Kit (Gen 5) Cartridge See Rx Instructions .ROUTE .MEDSUPPLY Qty: 1 0RF Rx Instructions: As directed triamcinolone acetonide 0.1 % ointment 1 applic topical TID PRN (Reason: Itching) Qty: 15 0RF (DME) Dexcom G7 Creative Project Manager Misc See Rx Instructions .ROUTE .COMPLEX Qty: 1 0RF Dose Instruction: USE DIRECTED Rx Instructions: USE DIRECTED (DME) Omnipod 5 G6-G7 Pods (Gen 5) Cartridge See Rx Instructions .ROUTE .COMPLEX Qty: 5 6RF Dose Instruction: USE DIRECTED, CHANGE EVERY 3 DAYS Rx Instructions: USE DIRECTED, CHANGE EVERY 3 DAYS (DME) Dexcom G7 Sensor Device See Rx Instructions .ROUTE .COMPLEX Qty: 3 3RF Dose Instruction: CHANGE SENSOR EVERY 10 DAYS Rx Instructions: CHANGE SENSOR EVERY 10 DAYS insulin lispro 100 unit/mL solution See Rx Instructions .ROUTE .COMPLEX Qty: 130 0RF Dose Instruction: INJECT 150 UNITS PER DAY VIA INSULIN PUMP Rx Instructions: INJECT 150 UNITS PER DAY VIA INSULIN PUMP Symbicort 160-4.5 mcg/actuation HFA aerosol inhaler 2 puff INHALATION BID Discharge Orders: Discharge ED (Routine); Ordered 03/19/25 Ordered By: Shira Sesay Referrals: Corina Esqueda FNP [Primary Care Provider, Unknown] Patient Instructions: Patient Portal & Jennifer Instructions Print Language: Yakut Coding Level of Care Code ED Pedigree Tracer for Wilbur Marino
== END 2025-03-19 16:10 | disposition home or self-care (01) ==
PROVIDERS: Emergency Provider Physician Assistant; PCP Nurse Practitioner Family
DX: S90.421A Blister (nonthermal), right great toe, initial encounter (principal); Z79.4 Long term (current) use of insulin; E11.9 Type 2 diabetes mellitus without complications; I10 Essential (primary) hypertension; E78.5 Hyperlipidemia, unspecified; X58.XXXA Exposure to other specified factors, initial encounter
CPT/HCPCS: 73630; 99283

== ENCOUNTER 2025-06-14 08:06 | Oncology outpatient (recurring) (ONCR) | payer BC, MEDICAID, SELFPAY ==
[2024-03-17 10:40] VITALS: BP 118/73; BMI 23.8
[2025-06-14 09:22] LABS: Hematocrit 49.2 % (37-53); Hemoglobin 16.70 g/dL (11.27-16.99); Mean Corpuscular HGB Conc 33.9 g/dL (30-55); Mean Corpuscular Hemoglobin 29.0 pg (27-33); Mean Corpuscular Volume 85.6 fl (82-101); Nucleated Red Blood Cells % 0 %; Platelet Count 187 10^3/cmm (157-399); Red Blood Count 5.75 10^6/uL (3.85-5.65); White Blood Count 8.83 10^3/uL (3.29-11.43)
[2025-06-14 09:38] LABS: Alanine Aminotransferase 41 U/L (0-41); Albumin Level 4.1 g/dL (3.5-5.2); Alkaline Phosphatase 85 U/L (40-130); Anion Gap 14.4 (5-19); Aspartate Amino Transferase 23 U/L (0-40); Blood Urea Nitrogen 15 mg/dL (6-20); Calcium 9.4 mg/dL (8.5-10.5); Carbon Dioxide 28 mmol/L (22-29); Chloride 105 mmol/L (98-107); Creatinine Clr Calc Pharmacy 120.9273; Globulin 2.7 g/dL (1.3-4.6); Glucose 130 mg/dL (65-115); Osmolality Calculated 299 mOsm/kg (285-295); Potassium 4.4 mmol/L (3.5-5.1); Sodium 143 mmol/L (136-145); Total Protein 6.8 g/dL (6.6-8.7); Uric Acid 6.6 mg/dL (3.4-7.0)
[2025-06-14 09:59] LABS: Ferritin 176 ng/mL (30-400); Iron 120 ug/dL (59-158); Total Iron Binding Capacity 281 mcg/dl; Unsaturated Iron Binding 161 ug/dL (112-347)
== END 2025-06-22 23:59 | disposition home or self-care (01) ==
PROVIDERS: Internal Medicine; PCP Nurse Practitioner Family; Visit Provider Internal Medicine Medical Oncology
DX: Z53.9 Procedure and treatment not carried out, unspecified reason; D75.1 Secondary polycythemia; D69.6 Thrombocytopenia, unspecified; M43.22 Fusion of spine, cervical region
CPT/HCPCS: 36415; 71046; 80053; 82668; 82728; 83540; 83550; 83615; 84550; 85025; 86140

== ENCOUNTER 2025-06-20 15:50 | Observation (INO) | payer BC, MEDICAID, SELFPAY ==
[2024-03-17 10:40] VITALS: BP 118/73; BMI 23.8
--- OUTSIDE RECORDS SUMMARY | 2024-06-17 04:00 | XMS_ITS ---
Author Organization [facility] Address [address] [place] [address] Care Team Providers Care Uke Operator Name Role Phone Becky Dillon Primary Care Provider [phone] BECKY DILLON Unavailable Unavailable Migration, Provider Unavailable Unavailable REASON FOR VISIT EMR-Fermín Encounters Encounter Location Date Provider Diagnosis Migrated_Facility 0 0 06/17/2024 Provider Migration Plan Of Treatment Medication Medication Name Sig Start Date Stop Date Notes Gabapentin 300 MG Capsule 1 Capsule thre e times a day Oral 10/20/2023 11/19/2023 Progress Notes * FAUSTO WillDOB:1970 ([age] yo M)Acc No.[id number]:06/17/2024 Patient: Will LEMUS :1970 A ge:54 Y S ex:Male Address:[address] [place] [id number] * Refills Stop Gabapentin Capsule, 300 MG, Oral, 1 Capsule three times a day Subjective: * Chief Complaints: * E MR-Fermín * * Date:
--- OUTSIDE RECORDS SUMMARY | 2024-06-17 04:00 | XMS_ITS ---
Author Organization [facility] Address [address] [place] [address] Care Team Providers Care Alignment Mechanic Name Role Phone Becky Dillon Primary Care [...] * FAUSTO WillDOB:1970 ([age] yo M)Acc No.[id number]:06/17/2024 Patient: Will LEMUS :1970 A ge:54 Y S ex:Male Address:[address] [place] [id number] * Refills Stop Gabapentin Capsule, 300 MG, Oral, 1 Capsule three times a day Subjective: * Chief Complaints: * E MR-Fermín * * Date:
--- OUTSIDE RECORDS SUMMARY | 2024-06-18 04:00 | XMS_ITS ---
Author Organization [facility] Address [address] [place] [address] Care Team Providers Care Crap Game Box Person Name Role Phone Becky Dillon Primary Care [...] Active Albuterol Sulfate *[facility]* Active SEROquel *Pick strength-f orm from [facility] for eRX* Active Meloxicam *Pick strength-f orm from [facility] for eRX* Active Levemir FlexTouch U100 Insulin *[facility] for [facility] and Interaction Alerts* Active Gabapentin *[facility]* Active Tylenol *Pick strength[facility]f [facility]m [facility]* Active Social History Social [...] * Yaritza LAMBERT:1970 ([age] yo M)Acc No.[id number]:06/18/2024 Patient: Will LEMUS :1970 A ge:54 Y S ex:Male Address:[address] [place] [id number] Subjective: * Chief Complaints: * E MR-Fermín [...]
--- OUTSIDE RECORDS SUMMARY | 2024-06-18 04:00 | XMS_ITS ---
Author Organization [facility] Address [address] [place] [address] Care Team Providers Care Quality Auditor Name Role Phone Becky Dillon Primary Care [...] Active Albuterol Sulfate *[facility]* Active SEROquel *Pick strength-f orm from [facility] for eRX* Active Meloxicam *Pick strength-f orm from [facility] for eRX* Active Levemir FlexTouch U100 Insulin *[facility] and Interaction Alert[facility]* Active Gabapentin *[facility]* Active Tylenol *[facility]* Active Social History Social [...] * Yaritza LAMBERT:1970 ([age] yo M)Acc No.[id number]:06/18/2024 Patient: Will LEMUS :1970 A ge:54 Y S ex:Male Address:[address] [place] [address] Subjective: * Chief Complaints: * E MR-Fermín [...]
[2025-06-20] VITALS (9 sets, daily range): BP systolic 124–191; BP diastolic 69–110; PULSE 66–87; RESP 14–20; TEMP 37; O2SAT 91–95
--- NOTE | 2025-06-20 15:55 | CTR_ITS ---
PROCEDURE INFORMATION: Exam: CT Head Without Contrast Exam date and time: 06/20/2025 3:56 PM Age: 55 years old Clinical indication: Stroke-like symptoms; Other: Symptoms of acute stroke TECHNIQUE: Imaging protocol: Computed tomography of the head without contrast. Radiation optimization: All CT scans at this facility use at least one of these dose optimization techniques: automated exposure control; mA and/or kV adjustment per patient size (includes targeted exams where dose is matched to clinical indication); or iterative reconstruction. Other technique: STROKE PROTOCOL was implemented. COMPARISON: No relevant prior studies available. RADIATION DOSE METRICS: Total DLP (mGy-cm): 1040.48 FINDINGS: Brain: Moderate hypoattenuating foci are noted in the posterior superior periatrial and anterior lateral ventricular periventricular white matter bilaterally. Small bilateral basal forebrain prominent perivascular spaces, normal variant. No intracranial hemorrhage. No mass or acute cortical infarction identified. Ventricles: No hydrocephalus or evidence of increased intracranial pressure. Paranasal sinuses: Visualized sinuses are unremarkable. No fluid levels. Mastoid air cells: Visualized mastoid air cells are well aerated. Bones: No acute abnormality identified. No acute fracture. Soft tissues: Unremarkable. Vasculature: Atherosclerotic calcifications are present involving the carotid artery siphons bilaterally. CT/CT head thrombolytic [id number] IMPRESSION: 1. Moderate chronic white matter microvascular ischemic disease. 2. No acute intracranial abnormality identified. ASSESSMENT: ASPECTS ([place] Stroke Program Early CT Score) is 10.
--- NOTE | 2025-06-20 15:58 | CTR_ITS ---
PROCEDURE INFORMATION: Exam: CTA Head With Contrast, Arteriography Exam date and time: 06/20/2025 4:02 PM Age: 55 years old Clinical indication: Other: Possible stroke TECHNIQUE: Imaging protocol: Computed tomographic angiography of the head with contrast. Exam focused on the arteries. 3D rendering (Not supervised by radiologist): MIP reconstructed images were created by the technologist. Radiation optimization: All CT scans at this facility use at least one of these dose optimization techniques: automated exposure control; mA and/or kV adjustment per patient size (includes targeted exams where dose is matched to clinical indication); or iterative reconstruction. Contrast material: OMNI 350; Contrast volume: 100 ml; Contrast route: INTRAVENOUS (IV); COMPARISON: CT head thrombolytic [id number] 06/20/2025 3:56 PM RADIATION DOSE METRICS: Total DLP (mGy-cm): 453.98 FINDINGS: ANTERIOR CIRCULATION: Right internal carotid artery: Cavernous, paraclinoid and suprasellar segment calcified plaque, less than 30% stenosis. Right middle cerebral artery: No occlusion or significant stenosis. No aneurysm. Right anterior cerebral artery: No occlusion or significant stenosis. No aneurysm. Left internal carotid artery: Cavernous, paraclinoid and suprasellar segment calcified plaque, less than 30% stenosis. Left middle cerebral artery: No occlusion or significant stenosis. No aneurysm. Left anterior cerebral artery: No occlusion or significant stenosis. No aneurysm. POSTERIOR CIRCULATION: Right vertebral artery: No occlusion or significant stenosis. No aneurysm. Left vertebral artery: No occlusion or significant stenosis. No aneurysm. Basilar artery: No occlusion or significant stenosis. No aneurysm. Right posterior cerebral artery: No occlusion or significant stenosis. No aneurysm. Left posterior cerebral artery: No occlusion or significant stenosis. No aneurysm. Brain: No definite mass, mass effect, or midline shift. Ventricles: No hydrocephalus. Paranasal sinuses: Intraluminal cysts/polyps are present in the inferior bilateral maxillary sinus. Bones/joints: No acute abnormality. No acute fracture. Soft tissues: Unremarkable. PROCEDURE INFORMATION: Exam: CTA Neck With Contrast Exam date and time: 06/20/2025 4:02 PM Age: 55 years old Clinical indication: Other: Possible stroke TECHNIQUE: Imaging protocol: Computed tomographic angiography of the neck with contrast. Exam focused on the cervical segments of the vasculature. 3D rendering (Not supervised by radiologist): MIP reconstructed images were created by the technologist. Radiation optimization: All CT scans at this facility use at least one of these dose optimization techniques: automated exposure control; mA and/or kV adjustment per patient size (includes targeted exams where dose is matched to clinical indication); or iterative reconstruction. Contrast material: OMNI 350; Contrast volume: 100 ml; Contrast route: INTRAVENOUS (IV); COMPARISON: CT head thrombolytic [id number] 06/20/2025 3:56 PM RADIATION DOSE METRICS: Total DLP (mGy-cm): 453.98 FINDINGS: Right common carotid artery: Bifurcation calcified smooth plaque, less than 20% stenosis. Right internal carotid artery: Proximal right internal carotid artery calcified smooth plaque, no NASCET stenosis (distal vessel reference). Right external carotid artery: No occlusion or stenosis of the origin. Left common carotid artery: No stenosis. No dissection or occlusion. Left internal carotid artery: Posteromedial origin left internal carotid artery, normal variant. No stenosis/occlusion. Left external carotid artery: No occlusion or stenosis of the origin. Right vertebral artery: No stenosis. No dissection or occlusion. Left vertebral artery: No stenosis. No dissection or occlusion. Soft tissues: Normal. No significant soft tissue swelling. Bones/joints: Moderate C2-C3, mild C3-C4 spondylosis. An anterior cervical discectomy and fusion has been performed at the C4-C5 level. The intervertebral body graft is fused in mild anterolisthesis. The metallic hardware appears intact and in good position. C5-6 and C6-7 degenerative disc disease with mild spondylosis. Chronic T2 vertebral body compression deformity (intervertebral fusion above and below), with T1 chronic healed spinous process fracture. CT/CT angio headneck* [id number] IMPRESSION: No acute intracranial vascular abnormality identified. IMPRESSION: No acute extracranial vascular abnormality identified. REFERENCES: NASCET CRITERIA. The degree of stenosis in the cervical segment of the internal carotid artery is based on NASCET criteria. Normal is no stenosis. Mild is less than 50% stenosis. Moderate is 50-69% stenosis. Severe is 70% to 99% stenosis. Total occlusion is no detectable patent lumen.
--- OUTSIDE RECORDS SUMMARY | 2025-06-20 15:58 | XMS_ITS | Clinical Summary ---
Author Organization [facility] Address [address] [facility] Attn: [place] [id number] Care Team Providers Care Regulatory Affairs Coordinator Name Role Phone Unavailable Primary Care Provider [...] Encounters Date Type Department Care Team Description 06/12/2025 Orders Only [facility] Gastroenterology- [place] [address] [facility] [address] [place] [id number] Corina Esqueda, XENIA Abdominal pain, unspecified abdominal location (Primary Dx) 05/30/[address] 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 Gender Identity Not on file Sexual Orientation Not on file Last Filed Vital Signs Vital Sign Reading Time Taken Comments Blood Pressure 147/85 09/21/2016 5:10 PM CANINE SERVICE TEACHER Pulse 77 09/21/2016 5:10 PM CANINE SERVICE TEACHER Temperature 36.9 C (98.4 F) 09/21/2016 5:10 PM CANINE SERVICE TEACHER Respiratory Rate 18 09/21/2016 5:10 PM CANINE SERVICE TEACHER Oxygen Saturation - - Inhaled Oxygen Concentration - - Weight 88.5 kg (195 lb) 09/21/2016 3:25 PM CANINE SERVICE TEACHER Height 172.7 cm (5' 8 ) 09/21/2016 3:25 PM CANINE SERVICE TEACHER Body Mass Index 29.65 09/21/2016 3:25 PM CANINE SERVICE TEACHER Plan of Treatment Upcoming Encounters Date Type Department Care Team (Late st Contact Info) Description 07/27/2025 2:00 PM CANINE SERVICE TEACHER Office Visit [facility] Urology [address] [place] [phone] Pablito Sandoval MD [address] [address] [place] [phone] Health Maintenance Due Date Last Done Comments HEPATITIS B VACCINES (1 of 3 - 19+ 3-dose series) 02/1989 Preventative Visit-Managed Medicaid 1989 COLORECTAL SCREENING 2015 Colorectal Cancer Screening 2015 FIT-DNA Q 3 years 2015 FIT/FOBT Q 1 year 2015 Flex Sig/CT Colonography Q 5 years 2015 ZOSTER VACCINE (1 of 2) 01/28/2020 DTAP/TDAP/TD VACCINES (2 - Td or Tdap) 11/22/2023 INFLUENZA VACCINE (#1) 2025 Medical Devices Implanted Type Area Occupational Therapy Professor Device Identifier Shelf Expiration Date Model / Serial / Lot Bone Allcrft 8mm Douglas/Canc 6183-5-008 - [id number] Implanted:Qty : 1 on 11/24/2013 Bone Right: Spine Cervical Anterior CASTILLO- SPINE 09/28/2017 [id number] / [id number] / ID:[id number] Plate Rflxhbrd 1lvl 14mm [id number] - Sload#[id number] Implanted:Qty : 1 on 11/24/2013 Plate Right: Spine Cervical Anterior CASTILLO- SPINE [id number] / [id number]#[id number] / NA Screw Rh Sd Va 4.0x14mm [id number] - Sload#[id number] Implanted:Qty : 4 on 11/24/2013 Screw Right: Spine Cervical Anterior CASTILLO- SPINE [id number] / LOAD#[id number] / NA Explanted Type Area Occupational Therapy Professor Device Identifier Shelf Expiration Date Model / Serial / Lot Reflex Hybrid Short Temporary Fixation Pin Explanted:Qty : 2 on 11/24/2013 by Lauren Horvath MD Right: Spine Cervical Anterior CASTILLO- SPINE [id number] / LOAD#[id number] / NA Description:pricing per 11/24 invoice Insurance [facility]
--- OUTSIDE RECORDS SUMMARY | 2025-06-20 15:59 | XMS_ITS | Data Portability ---
Author Organization [facility] Ino Becker [facility] Padmini Albert [facility] Address [address] [place] [address] Care Team Providers Care [employer] Supervisor Name Role Phone CORINA HAY Primary Care Provider Unavailabl e Assessment Encounter Date Assessment Date Assessment LastModified by Organization Details LastModified Time 09/08/2024 09/08/2024 Patient here today for a check-up. He reports the medication for ED has not been helpful. He has neuropathy pain often in his legs, always in his feet. Not available 09/08/2024 10:24:30 03/16/2025 03/16/2025 Patient here today over concern for the multiple tick bites he has an possible alpha gal due to diarrhea after eating meat. Not available 03/16/2025 09:56:05 05/21/2025 05/21/2025 Patient here today for a referral to specialists for his gut and his ED issues. He recently got . Not available 05/21/2025 12:47:25 06/08/2025 06/08/2025 Patient continues to follow with Dr. Hammond for his sugars. He reports he only pees twice a day. His stream is not as strong at times. He reports his head starts hurting around 2 o'clock every day. He is worried about his kidneys as well. He has been taking Ivermectin for the past 3 weeks or so to help with his alpha-gal. His boss is wondering about his renal gland. 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 available Not available Not available Lab hemoglo bin A1C/hem oglobin total, QN, blood 2024 [facility], [address], [address], [place], [address], 06/08/2025 12:02:48 thyrotr opin, QN, serum or plasma 2024 [facility], [address], [address], [place], [address], 06/08/2025 12:45:53 PSA, total, serum or plasma 2024 [email or web address] [employer] [facility], [address] [place] [address], [address] [place], [address], 06/18/2025 09:53:03 noninva sive colorec uri cancer DNA + occult blood screeni ng, QL, stool 2024 [email or web address] [facility], [address], [address], [place], [address], 06/18/2025 09:53:03 CMP, serum or plasma 2024 [facility], [address], [address], [place], [address], 06/08/2025 12:25:04 CBC 2024 [facility], [address], [address], [place], [address], 06/08/2025 11:57:11 alpha-g al ige, serum 2024 [employer] [facility], [address], [place], [address], 03/21/2025 09:12:26 microal bumin/c reatini ne, mass ratio, urine 2024 025 [employer] [facility], [address], [address], [place], [address], 09/09/2024 05:22:35 hemoglo bin A1C/hem oglobin total, QN, blood 2024 025 [place] [facility], [address], [address], [place], [address], 09/08/2024 11:00:47 CMP, serum or plasma 2024 025 [facility], [address], [address], [place], [address], 09/08/2024 12:21:17 lipid panel, blood 2024 025 [facility], [address], [address], [place], [address], 09/08/2024 12:21:20 CBC 2024 025 [facility], [address], [address], [place], [address], 09/08/2024 11:01:04 PSA, serum or plasma 2024 025 [facility], [address] [facility], [place], [address], 09/09/2024 05:22:37 Referral ophthal mologis t referra l [address], [address] , [place], [address], 06/12/2025 09:52:28 gastroe nterolo gist referra l [address] [facility], [address] [facility] [address], [place], [address], 06/15/2025 12:42:[address] referra l 2024 [email or web address] [facility], [address] [place], [address], 06/13/2025 10:54:[address] referra l 2024 025 [facility], [address] [place], [address], 10/25/2024 12:28:21 Procedures None recorde d. Surgeries None recorde d. Imaging LDCT, chest, for lung cancer screeni ng [address] [facility], [address] [place] [address], [address], 06/20/2025 14:08:29 [facility], pelvis, [facility] [address] [place], [address], 06/11/2025 14:33:58 Medication Orders Bystoli c 5 mg tablet 2024 [email or web address] [facility], [address], [place], [address], 06/08/2025 14:13:05 quetiap ine 50 mg tablet 2024 025 [facility], [address], [place], [address], 06/04/2025 16:00:31 lisinop ril 20 mg-hydr ochloro thiazid e 12.5 mg tablet 2024 [facility] 15, [address], [place], [address], 06/04/2025 15:55:12 gabapen tin 300 mg capsule 2024 [facility] 15, [address], [place], [address], 06/04/2025 16:00:33 Zyrtec 10 mg tablet 2024 [facility] 15, [address], [place], [address], 05/21/2025 12:48:12 pantopr azole 40 mg tablet, delayed release 2024 [facility] 15, [address], [place], [address], 05/21/2025 12:49:53 triamci nolone acetoni de 0.1 % topical cream 2024 [facility] 15, [address], [place], [address], 06/04/2025 16:01:57 nystati n-triam cinolon e 100,000 unit/g- 0.1 % topical cream 2024 [email or web address] [facility], [address], [place], [address], 05/21/2025 12:25:07 Patient TargetsNo targets recorded. Patient Instructions Encounter Date Encounter Id Patient Instructions Last Modified By Organization Details Last Modified Time 09/08/2024 [id number] Call or return for questions or concerns. Not available 09/08/2024 10:22:57 03/16/2025 [id number] Call or return for questions or concerns. Not available 03/29/2025 15:48:36 05/21/2025 [id number] Call or return for questions or concerns. Not available 05/21/2025 12:56:31 06/08/2025 [id number] Call or return for questions or concerns. Not available 06/08/2025 11:16:04 Reason for Referral Urologist Referral for Erect ile dysfunction Referring Physician: Corina Hay [facility], Encounter Date: 09/08/2024 Urologist Referral for Erect ile dysfunction Referring Physician: Corina Hay [facility], Encounter Date: 05/21/2025 [employer] Referral for Abdominal pain Referring Physician: Corina Hay [facility], Encounter Date: 05/21/2025 Riding Double Referral for Well controlled type 2 diabetes mellitus Referring Physician: Corina Hay [facility], Encounter Date: 06/08/2025 Results Created Date Observation Date Name Description Value Unit Range Abnormal Flag Note LastModifiedBy Organization Detail LastModifiedTime 09/08/1909/08/2024 HBA1C hemaglobin A1C 7.3 4.2-6. 5 high Not Available [facility] [address], [place], [address], 09/08/2024 11:00:47 09/08/19 25 09/08/2024 CBC WBC 8.8 x10 4.5-10 .5 Not Available [facility] [address], [place], [address], 09/08/2024 11:01:04 09/08/19 25 09/08/2024 CBC RBC 5.51 x10 4.30-5 .90 Not Available [facility] [address], [place], [address], 09/08/2024 11:01:04 09/08/19 25 09/08/2024 CBC HGB 16.8 g/dL 13.5-1 8.0 Not Available [facility] [address], [place], [address], 09/08/2024 11:01:04 09/08/19 25 09/08/2024 CBC HCT 48.3 % 35.0-6 0.0 Not Available [facility] [address] [facility], [place], [address], 09/08/2024 11:01:04 09/08/19 25 09/08/2024 CBC MCV 87.7 fL 80.0-9 9.9 Not Available [facility] [address] [facility], [place], [address], 09/08/2024 11:01:04 09/08/19 25 09/08/2024 CBC MCH 30.4 pg 27.0-3 2.0 Not Available [facility] [address] [facility], [place], [address], 09/08/2024 11:01:04 09/08/19 25 09/08/2024 CBC MCHC 34.7 g/dL 32.0-3 6.0 Not Available [facility] [address] [facility], [place], [address], 09/08/2024 11:01:04 09/08/19 25 09/08/2024 CBC RDW 14.8 % 11.5-1 4.5 high Not Available [facility] [address] [facility], [place], [address], 09/08/2024 11:01:04 09/08/19 25 09/08/2024 CBC plt 143.6 x10 150.0- 451.0 low Not Available [facility] [address] [facility], [place], [address], 09/08/2024 11:01:04 09/08/19 25 09/08/2024 CBC lymphocytes % 26.5 % 20.0-5 0.0 Not Available [facility] [address] [facility], [place], [address], 09/08/2024 11:01:04 09/08/19 25 09/08/2024 CBC granulcytes % 60.0 % 30.0-7 0.0 Not Available [facility] [address] [facility], [place], [address], 09/08/2024 11:01:04 09/08/19 25 09/08/2024 CBC monocytes % 7.7 % 2.0-16 .0 Not Available [facility] [address] [address], [place], [address], 09/08/2024 11:01:04 09/08/19 25 09/08/2024 CBC granulcytes# 5.3 x10 Not Ivy ilable [facility] [address] [address], [place], [address], 09/08/2024 11:01:04 09/08/19 25 09/08/2024 CBC lymphocytes # 2.3 x10 Not Available [facility] [address] [address], [place], [address], 09/08/2024 11:01:04 09/08/19 25 09/08/2024 CBC monocytes # 0.7 x10 Not Avai lable [facility] [address] [address], [place], [address], 09/08/2024 11:01:04 09/08/19 25 09/08/2024 CMP (MALE ) glucose 171.0 mg/dL 60.0-9 9.0 high Not Available [facility] [address] [address], [place], [address], 09/08/2024 12:21:17 09/08/19 25 09/08/2024 CMP (MALE ) BUN (blood urea nitrogen) 22.0 mg/dL 10.0-2 6.0 Not Available [facility] [address] [facility] [facility], [place], [address], 09/08/2024 12:21:17 09/08/19 25 09/08/2024 CMP (MALE ) creatinine (serum) 0.9 mg/dL 0.4-1. 5 Not Available [facility] [address] [facility], [place], [address], 09/08/2024 12:21:17 09/08/19 25 09/08/2024 CMP (MALE ) BUN/creatini ne ratio 24.44 ratio Not Available [facility] [address] [facility], [place], [address], 09/08/2024 12:21:17 09/08/19 25 09/08/2024 CMP (MALE ) eGFR calculated 93.5 Not Available [facility] [address] [facility], [place], [address], 09/08/2024 12:21:17 09/08/19 25 09/08/2024 CMP (MALE ) total protein 7.1 g/dL 6.0-8. 5 Not Available [facility] [address] [facility], [place], [address], 09/08/2024 12:21:17 09/08/19 25 09/08/2024 CMP (MALE ) total bilirubin 0.5 mg/dL 0.2-1. 3 Not Available [facility] [address] [facility], [place], [address], 09/08/2024 12:21:17 09/08/19 25 09/08/2024 CMP (MALE ) albumin 4.2 g/dL 3.5-5. 5 Not Available [facility] [address] [facility], [place], [address], 09/08/2024 12:21:17 09/08/19 25 09/08/2024 CMP (MALE ) globulin 2.9 calc Not Available [facility] [address] [facility], [place], [address], 09/08/2024 12:21:17 09/08/19 25 09/08/2024 CMP (MALE ) AST (SGOT) 41.0 U/L 0.0-46 .0 Not Available [facility] [address] [facility], [place], [address], 09/08/2024 12:21:17 09/08/19 25 09/08/2024 CMP (MALE ) altv (SGPT) 71.0 U/L 13.0-6 9.0 abnormal Not Available [facility] [address] [address], [place], [address], 09/08/2024 12:21:17 09/08/19 25 09/08/2024 CMP (MALE ) A/G ratio 1.4 ratio Not Available [facility] [address] [address], [place], [address], 09/08/2024 12:21:17 09/08/19 25 09/08/2024 CMP (MALE ) ALP phos 83.0 U/L 30.0-1 40.0 normal Not Available [facility] [address] [address], [place], [address], 09/08/2024 12:21:17 09/08/19 25 09/08/2024 CMP (MALE ) calcium 8.8 mg/dL 8.4-10 .5 Not Available [facility] [address] [address], [place], [address], 09/08/2024 12:21:17 09/08/19 25 09/08/2024 CMP (MALE ) sodium 143.0 mmol/ L 136.0- 145.0 Not Available [facility] [address] [facility], [place], [address], 09/08/2024 12:21:17 09/08/19 25 09/08/2024 CMP (MALE ) potassium 4.2 mmol/ L 3.5-5. 1 Not Available [facility] [address] [facility], [place], [address], 09/08/2024 12:21:17 09/08/19 25 09/08/2024 CMP (MALE ) chloride 107.0 mmol/ L 98.0-1 10.0 normal Not Available [facility] [address] [facility], [place], [address], 09/08/2024 12:21:17 09/08/19 25 09/08/2024 CMP (MALE ) C02 28.0 mmol/ L 22.0-3 1.0 Not Available [facility] [address] [facility], [place], [address], 09/08/2024 12:21:17 09/08/19 25 09/08/2024 CMP (MALE ) anion gap 8.0 calc Not Available [facility] [address] [facility], [place], [address], 09/08/2024 12:21:17 09/08/19 25 09/08/2024 CMP (MALE ) osmolality 301.9 calc Not Available [facility] [address] [facility], [place], [address], 09/08/2024 12:21:17 09/08/19 25 09/08/2024 LIPID PROFI LE (MALE ) cholesterol 179.0 mg/dL 0.0-20 0.0 Not Available [facility] [address] [facility], [place], [address], 09/08/2024 12:21:20 09/08/19 25 09/08/2024 LIPID PROFI LE (MALE ) trig 227.0 mg/dL 0.0-15 0.0 high Not Available [facility] [address] [facility] 1, [place], [address], 09/08/2024 12:21:20 09/08/19 25 09/08/2024 LIPID PROFI LE (MALE ) HDL - direct 41.0 mg/dL >40.0 Not Available [facility] [address] [facility] 1, [place], [address], 09/08/2024 12:21:20 09/08/19 25 09/08/2024 LIPID PROFI LE (MALE ) VLDL - direct 45.4 mg/dL Not Available [facility] [address] [facility], [place], [address], 09/08/2024 12:21:20 09/08/19 25 09/08/2024 LIPID PROFI LE (MALE ) LDL - direct 92.6 mg/dL 0.0-13 0.0 Not Available [facility] [address] [facility], [place], [address], 09/08/2024 12:21:20 09/08/19 25 09/09/2024 ALBUM IN, RANDO M URINE W/CRE ATINI NE creatinine, random urine 211 mg/dL 20-320 normal Not Available [facility] [address] [place], [address], 09/09/2024 05:22:35 09/08/19 25 09/09/2024 ALBUM IN, RANDO M URINE W/CRE ATINI NE albumin, urine 12.3 mg/dL see note: normal Refer ence Range : Refer ence Range Not estab lishe d Not Available [facility] [address] [place], [address], 09/09/2024 05:22:35 09/08/19 25 09/09/2024 ALBUM IN, [...] a diagn ostic categ ory. Not Available [employer] [facility] [address] [place], [address], 09/09/2024 05:22:35 09/08/19 25 09/09/2024 PSA, TOTAL PSA, total 0.25 NG/mL < [...] This test was perfo rmed using the GMI Rating[employer] chemi lumin escen t metho d. Value s obtai niraj from diffe rent assay metho ds canno t be used inter stiles eably . PSA level s, regar dless of value , shoul d not be inter prete d as absol catawba evide nce of the prese nce or absen ce of disea se. Not Available [employer] [facility] [address] [address] , [place], [address], 09/09/2024 05:22:37 03/16/20 25 03/21/2025 ALPHA GAL PANEL beef (F27) IgE 0.16 kU/L high Not Available [facility] [address] [place], [address], 03/21/2025 09:12:26 03/16/2003/21/2025 ALPHA GAL PANEL class 0/1 Not Available [facility] [address] [address] [place], [address], 03/21/2025 09:12:26 03/16/2003/21/2025 ALPHA GAL PANEL alexander (F88) IgE <0.10 kU/L normal Not Available [address] [address] [place], [address], 03/21/2025 09:12:26 03/16/2003/21/2025 ALPHA GAL PANEL class 0 Not Available [address] [address] [place], [address], 03/21/2025 09:12:26 03/16/2003/21/2025 ALPHA GAL PANEL pork (F26) IgE <0.10 kU/L normal Not Available [address] [place], [address], 03/21/2025 09:12:26 03/16/2003/21/2025 ALPHA GAL PANEL class 0 Not Available [address], [address], 03/21/2025 09:12:26 03/16/2003/21/2025 ALPHA GAL PANEL galactose alpha 1,3 galactose IgE 1.71 kU/L <0.10 high Resul ts above 0.1 [...] diagn ostic metho d. Addit ional infor monique uhrtado can be found at http: //www .phad ia.co m Not Available [facility] [address] [place], [address], 03/21/2025 09:12:26 03/16/20 25 03/21/2025 INTER PRETA TION interpretati on Speci fic [...] have been deter mined by [facility] jared s. It has not been clear ed or appro carol by the U.S. Food and Drug Admin istra tion. This assay has been valid ated pursu ant to the CLIA regul ation s and is used for clini micky purpo ses. Not Available [employer] [facility] [address] [place], [address], 03/21/2025 09:12:28 06/08/2006/08/2025 CBC WBC 7.7 x10 4.5-10 .5 Not Available [facility] [address] [facility], [place], [address], 06/08/2025 11:57:11 06/08/2006/08/2025 CBC RBC 5.60 x10 4.30-5 .90 Not Available [facility] [address] [facility], [place], [address], 06/08/2025 11:57:11 06/08/2006/08/2025 CBC HGB 17.0 g/dL 13.5-1 8.0 Not Available [facility] [address] [facility], [place], [address], 06/08/2025 11:57:11 06/08/2006/08/2025 CBC HCT 50.8 % 35.0-6 0.0 Not Available [facility] [address] [facility], [place], [address], 06/08/2025 11:57:11 06/08/2006/08/2025 CBC MCV 90.7 fL 80.0-9 9.9 Not Available [facility] [address] [facility], [place], [address], 06/08/2025 11:57:11 06/08/2006/08/2025 CBC MCH 30.4 pg 27.0-3 2.0 Not Available [facility] [address] [facility], [place], [address], 06/08/2025 11:57:11 06/08/2006/08/2025 CBC MCHC 33.5 g/dL 32.0-3 6.0 Not Available [facility] [address] [facility], [place], [address], 06/08/2025 11:57:11 06/08/2006/08/2025 CBC RDW 13.9 % 11.5-1 4.5 Not Available [facility] [address] [facility], [place], [address], 06/08/2025 11:57:11 06/08/2006/08/2025 CBC plt 125.6 x10 150.0- 451.0 low Not Available [facility] [address] [facility], [place], [address], 06/08/2025 11:57:11 06/08/2006/08/2025 CBC lymphocytes % 26.4 % 20.0-5 0.0 Not Available [facility] [address] [facility] 1, [place], [address], 06/08/2025 11:57:11 06/08/2006/08/2025 CBC granulcytes % 59.8 % 30.0-7 0.0 Not Available [facility] [address] [facility], [place], [address], 06/08/2025 11:57:11 06/08/2006/08/2025 CBC monocytes % 8.7 % 2.0-16 .0 Not Available [facility] [address] [facility], [place], [address], 06/08/2025 11:57:11 06/08/20 25 06/08/2025 CBC granulcytes# 4.6 x10 Not Ivy ilable [facility] [address] [facility] 1, [place], [address], 06/08/2025 11:57:11 06/08/2006/08/2025 CBC lymphocytes # 2.0 x10 Not Available [facility] [address] [facility] 1, [place], [address], 06/08/2025 11:57:11 06/08/2006/08/2025 CBC monocytes # 0.7 x10 Not Avai lable [facility] [address] [facility] 1, [place], [address], 06/08/2025 11:57:11 06/08/2006/08/2025 HBA1C hemaglobin A1C 8.2 4.2-6. 5 high Not Available [facility] [address] [facility] 1, [place], [address], 06/08/2025 12:02:48 06/08/20 25 06/08/2025 CMP (MALE ) glucose 292.0 mg/dL 60.0-9 9.0 high Not Available [facility] [address] [facility], [place], [address], 06/08/2025 12:25:04 06/08/20 25 06/08/2025 CMP (MALE ) BUN (blood urea nitrogen) 18.0 mg/dL 10.0-2 6.0 Not Available [facility] [address] [facility], [place], [address], 06/08/2025 12:25:04 06/08/20 25 06/08/2025 CMP (MALE ) creatinine (serum) 0.8 mg/dL 0.4-1. 5 Not Available [facility] [address] [facility] 1, [place], [address], 06/08/2025 12:25:04 06/08/20 25 06/08/2025 CMP (MALE ) BUN/creatini ne ratio 22.50 ratio Not Available [facility] [address] [facility], [place], [address], 06/08/2025 12:25:04 06/08/20 25 06/08/2025 CMP (MALE ) eGFR calculated 106.7 Not Available [facility] [address] [facility], [place], [address], 06/08/2025 12:25:04 06/08/20 25 06/08/2025 CMP (MALE ) total protein 6.8 g/dL 6.0-8. 5 Not Available [facility] [address] [facility], [place], [address], 06/08/2025 12:25:04 06/08/20 25 06/08/2025 CMP (MALE ) total bilirubin 0.6 mg/dL 0.2-1. 3 Not Available [facility] [address] [facility], [place], [address], 06/08/2025 12:25:04 06/08/20 25 06/08/2025 CMP (MALE ) albumin 4.0 g/dL 3.5-5. 5 Not Available [facility] [address] [facility], [place], [address], 06/08/2025 12:25:04 06/08/20 25 06/08/2025 CMP (MALE ) globulin 2.[address] [facility] [address] [facility], [place], [address], 06/08/2025 12:25:04 06/08/20 25 06/08/2025 CMP (MALE ) AST (SGOT) 36.0 U/L 0.0-46 .0 Not Available [facility] [address] [facility] 1, [place], [address], 06/08/2025 12:25:04 06/08/20 25 06/08/2025 CMP (MALE ) altv (SGPT) 49.0 U/L 13.0-6 9.0 normal Not Available [facility] [address] [facility] 1, [place], [address], 06/08/2025 12:25:04 06/08/2006/08/2025 CMP (MALE ) A/G ratio 1.4 ratio Not Available [facility] [address] [facility] [address], [place], [address], 06/08/2025 12:25:04 06/08/2006/08/2025 CMP (MALE ) ALP phos 77.0 U/L 30.0-1 40.0 normal Not Available [facility] [address] [facility] [address], [place], [address], 06/08/2025 12:25:04 06/08/20 25 06/08/2025 CMP (MALE ) calcium 9.0 mg/dL 8.4-10 .5 Not Available [facility] [address] [address], [place], [address], 06/08/2025 12:25:04 06/08/2006/08/2025 CMP (MALE ) sodium 140.0 mmol/ L 136.0- 145.0 Not Available [facility] [address] [facility] [address], [place], [address], 06/08/2025 12:25:04 06/08/20 25 06/08/2025 CMP (MALE ) potassium 3.9 mmol/ L 3.5-5. 1 Not Available [facility] [address] [place], [address], 06/08/2025 12:25:04 06/08/2006/08/2025 CMP (MALE ) chloride 101.0 mmol/ L 98.0-1 10.0 normal Not Available [facility] [address] [address] [facility] 1, [place], [address], 06/08/2025 12:25:04 06/08/20 25 06/08/2025 CMP (MALE ) C02 30.0 mmol/ L 22.0-3 1.0 Not Available [facility] [address] [facility] 1, [place], [address], 06/08/2025 12:25:04 06/08/2006/08/2025 CMP (MALE ) anion gap 9.0 calc Not Available [facility] [address] [facility] 1, [place], [address], 06/08/2025 12:25:04 06/08/2006/08/2025 CMP (MALE ) osmolality 300.6 calc Not Available [facility] [address] [facility], [place], [address], 06/08/2025 12:25:04 06/08/2006/08/2025 TSH TSH 0.69 uIU/m L 0.49-3 .82 Not Available [facility] [address] [facility], [place], [address], 06/08/2025 12:45:53 06/08/2006/09/2025 PSA, TOTAL PSA, total 0.27 NG/mL < or = 4.00 normal The total PSA value from this assay dwight jackson is stand ardiz ed again st the [...] not be inter prete d as absol catawba evide nce of the prese nce or absen ce of disea se. Not Available [employer] [facility] [address] [place], [address], 06/09/2025 08:08:41 Result Notes None recorded. Problems Name Problem SNOMED Code Status Onset Date Resolution Date Notes Provider Name and Address Organization Details Recorded Time Diabetic peripheral neuropathy 369418107 Active 2024 CORINA HAY, [address], [address], [facility] 11:20:17 Well controlled type 2 diabetes mellitus 080149682 Active [address], [address], [facility] 11:20:22 Essential hypertension 28940692 Active [address], [address], [facility] 11:20:24 Problem Notes None recorded. Procedures Surgical History Date Name Laterality Status Provider Name and Address Organization Details Recorded Time 06/22/20 24 ultrasonography of abdomen completed JOSE ALEJANDRO PRECIADO [facility], AlysaLChristoph 06/26/2024 11:15:39 01/07/[address] of abdomen completed [facility] 01/15/2024 15:08:52 12/15/19 24 ultrasonography completed OZZY IRVING [facility], LAntoni 12/22/2023 13:32:47 07/13/20 plain X-ray of chest completed OZZY IRVING [facility], Padmini 07/14/2023 11:32:32 Imaging Results None recorded. Procedure Notes None recorded. Medical Equipment None Reported. Allergies Allergen ID Allergen Name Allergen Category Reaction Reaction Severity Criticality Documentation Date Start Date Code Code System Note Provider Name and Address Organization Details Recorded Time 75442 Bactrim medicatio n diarrhea moderate low 07/07/2023 88523 9 [facility] 15:09:08 Medications Name Sig Start Date Stop [...] 1 TABLET BY MOUTH ONCE DAILY NEEDED 05/21 completed Not Available Not Available Not Available cetirizin e 10 mg tablet TAKE 1 TABLET BY MOUTH ONCE DAILY FOR 90 DAYS active Not Available Not Available No t Available lisinopri l 20 mg-hydroc hlorothia zide 12.5 mg tablet TAKE 1 TABLET BY MOUTH ONCE DAILY FOR 30 DAYS active Not Available Not Available No [...] completed Not Available Not Available Not Available amlodipin e 2.5 mg tablet TAKE 1 TABLET BY MOUTH ONCE DAILY FOR BLOOD PRESSURE active Not Available Not Available No t Available ciproflox acin 500 mg tablet TAKE ONE TABLET BY MOUTH EVERY TWELVE HOURS FOR 7 DAYS 07/07 completed Not Available Not Available Not Available quetiapin e 100 mg tablet Take 1 tablet every day by oral route at bedtime for 90 days. 12/02 completed Not Available Not Available Not Available triamcino lone acetonide 0.1 % topical cream APPLY CREAM EXTERNAL LY TWICE DAILY FOR 7 DAYS 06/04 completed Not Available Not Available Not Available meloxicam 7.5 mg tablet TAKE 1 TABLET BY MOUTH ONCE DAILY 06/02 completed Not Available Not Available Not Available tamsulosi n 0.4 mg capsule TAKE 1 CAPSULE BY MOUTH ONCE DAILY active Not Available Not Available No t Available insulin aspart U-100 100 unit/mL subcutane ous solution INJECT 150 UNITS VIA INSULIN PUMP DIRECTED active Not Available Not Available No t Available cephalexi n 500 mg capsule TAKE 1 CAPSULE BY MOUTH THREE TIMES DAILY 05/21 completed Not Available Not Available Not Available pantopraz ole 40 mg tablet,de layed release TAKE 1 TABLET BY MOUTH ONCE DAILY [...] 11 4:22PM by Yany Hope LPN (Authori alondra through Bud Zhang MD), Office Visit; Refill Quantity : 0; Not Available Not Available Not Available clotrimaz ole-betam ethasone 1 %-0.05 % topical cream APPLY TO AFFECTED AREA TWICE A DAY FOR 2 WEEKS IN THE MORNING AND EVENING (AND SURROUND ING AREAS) 12/02 completed Not Available Not Available Not Available lisinopri l 10 mg tablet TAKE 1 TABLET BY MOUTH ONCE DAILY FOR BLOOD PRESSURE active Not Available Not Available No t Available nystatin- triamcino lone 100,000 unit/g-0. 1 % topical cream APPLY TO THE AFFECTED AREA 2 TIMES DAILY IN THE MORNING AND EVENING 05/21 completed Not Available Not Available Not Available gabapenti n 300 mg capsule TAKE 1 CAPSULE BY MOUTH THREE TIMES DAILY active Not Available Not Available No t Available pravastat in 20 mg tablet TAKE ONE TABLET BY MOUTH DAILY 07/07 completed Not Available Not Available Not Available insulin lispro (U-100) 100 unit/mL subcutane ous solution INJECT 40 UNITS PER DAY VIA INSULIN PUMP active Not Available Not Available No t Available amoxicill in 875 mg-potass ium clavulana te 125 mg tablet TAKE 1 TABLET BY MOUTH EVERY 12 HOURS FOR 10 DAYS 09/08 completed Not Available Not Available Not Available insulin lispro (U-100) 100 unit/mL subcutane ous pen INJECT 5 UNITS SUBCUTAN EOUSLY THREE TIMES DAILY 05/21 completed Not Available Not Available Not Available pen needle, diabetic 31 gauge x [...] MOUTH ONCE DAILY NEEDED FOR 10 DAYS 05/21 completed Not Available Not Available Not Available Acetamino phen-Hydr ocodone four times daily, [...] MOUTH ONCE DAILY AT BEDTIME FOR SLEEP FOR 30 DAYS active Not Available Not Available No t Available Symbicort 160 mcg-4.5 mcg/actua tion HFA aerosol inhaler INHALE 2 PUFFS BY MOUTH TWICE DAILY 05/21 completed Not Available Not Available Not Available nebivolol 5 mg tablet TAKE 1 TABLET BY MOUTH ONCE DAILY FOR 30 DAYS 06/08 completed Not Available Not Available Not Available OneTouch Verio test strips USE TO CHECK GLUCOSE THREE TIMES DAILY 2024 active Not Available Not Available Not Avai lable OneTouch Verio Flex Meter TEST BLOOD SUGAR FOUR TIMES DAILY 12/02 completed Not Available Not Available Not Available Dexcom G6 Transmitt er device USE DIRECTED , CHANGE EVERY 3 MONTH 05/28 completed Not Available Not Available Not Available OneTouch Delica Plus Lancet 33 gauge [...] Available Not Available Not Available Dexcom G7 Book Cutter USE DIRECTED 05/28 completed Not Available Not Available Not Available Dexcom G7 Sensor device USE DIRECTED . CHANGE SENSOR EVERY 10 DAYS. 05/28 completed Not Available Not Available Not Available Omnipod 5 G6-G7 Pods (Gen 5) subcutane ous cartridge USE DIRECTED CHANGE EVERY 3 DAYS active Not Available Not Available No t Available Vitals Date Recorded Body height Body mass index (BMI) Body weight Oxygen saturation Oxygen saturation in Arterial blood by Pulse oximetry Heart rate Respiratory rate Systolic And Diastolic Provider Name and Address Organization Details Last Updated DateTime 5 172.72 cm 24.9 kg/m2 33082.1 5 g 95 % 95 % 92 /min 22 /min 160/92 mm[Hg] JOSE ALEJANDRO [facility] 5 09:56:25 Date Recorded Body height Body mass index (BMI) Body weight Oxygen saturation Oxygen saturation in Arterial blood by Pulse oximetry Heart rate Respiratory rate Systolic And Diastolic Provider Name and Address Organization Details Last Updated DateTime 5 172.72 cm 25.7 kg/m2 90974.1 1 g 97 % 97 % 70 /min 20 /min 158/82 mm[Hg] [facility] 5 09:46:28 Date Recorded Body height Body mass index (BMI) Body weight Oxygen saturation Oxygen saturation in Arterial blood by Pulse oximetry Heart rate Respiratory rate Systolic And Diastolic Provider Name and Address Organization Details Last Updated DateTime 5 172.72 cm 25.4 kg/m2 12746.9 3 g 95 % 95 % 84 /min 22 /min 152/96 mm[Hg] JOSE ALEJANDRO [facility] 5 12:15:25 Date Recorded Body height Body mass index (BMI) Body weight Oxygen saturation Oxygen saturation in Arterial blood by Pulse oximetry Heart rate Respiratory rate Body temperature Systolic And Diastolic Provider Name and Address Organization Details Last Updated DateTime 5 172.72 cm 25.8 kg/m2 59617.7 g 96 % 96 % 86 /min 16 /min 98.2 [degF] 180/120 mm[Hg] Patti Stover [facility] 5 15:45:12 Date Recorded Body height Body mass index (BMI) Body weight Oxygen saturation Oxygen saturation in Arterial blood by Pulse oximetry Heart rate Respiratory rate Systolic And Diastolic Provider Name and Address Organization Details Last Updated DateTime 5 172.72 cm 25.7 kg/m2 59449.1 1 g 98 % 98 % 88 /min 20 /min 164/102 mm[Hg] JOSE ALEJANDRO OZZY [facility] 5 10:46:57 Social History Question Answer Notes LastModified by [email or web address] ion Details LastModified Time Tobacco Smoking Status Current Every Day Smoker JOSE ALEJANDRO PRECIADO [facility] 12/03/2023 11:02:51 What Is Your Level Of Caffeine Consumption? Moderate Information not available 04/07/2024 How Much Tobacco Do You Chew? 1/day Information not available 06/08/2025 What Was The Date Of Your Most Recent Tobacco Screening? 06/08/2025 Information not available 06/08/2025 What Is Your Current Pack Years? [email or web address] Information not available 06/08/2025 What Is Your Relationship Status? Single [email or web address] Information not available 12/03/2023 At What Age Did You Start Smoking Tobacco? 16 Information not available 06/08/2025 How Much Tobacco Do You Smoke? 0.5 PPD Information not available 06/08/2025 Has Tobacco Cessation Counseling Been Provided? Yes Information not available 06/08/2025 On What Date Was Tobacco Cessation Counseling Provided? 06/08/2025 Information not available 06/08/2025 How Many Years Have You Smoked Tobacco? 40 Information not available 06/08/2025 Have You Recently Traveled Abroad? No [email or web address] Information not available 04/07/2024 How Many Years Have You Used Smokeless Tobacco? 40 Information not available 06/08/2025 Sex: Unknown Functional Status Question Answer Note LastModified by Organizat ion Details LastModified Time Do you use any illicit or recreational drugs? No Information not available 12/03/2023 Do you or have you ever used any other forms of tobacco or nicotine? Yes Information not available 06/08/2025 What is your level of alcohol consumption? None [email or web address] Information not available 12/03/2023 Do you or have you ever used smokeless tobacco? Currently chews tobacco Information not available 06/08/2025 Are you currently employed? Yes [email or web address] Information not available 12/03/2023 Are you able to care for yourself independently? Yes [email or web address] Information not available 12/03/2023 Do you or have you ever used e-cigarettes or vape? Never used electronic cigarettes Information not available 06/08/2025 Do you or have you ever used any nicotine-free cigarettes, vape, or chewing tobacco? No Information not available 06/08/2025 Mental Status None recorded. Family History Relationship Description Onset Age of this Age Resolved Age Notes LastModified by Organization Details LastModified Time Daughter Type 2 diabetes mellitus [email or web address] Not available 04/07 10:55:15 Son Type 2 diabetes mellitus [email or web address] Not available 04/07 10:55:15 Father Malignant neoplastic disease Unknow n which kind [email or web address] Not available 04/07/2024 10:56:01 Medical History Condition Response Anxiety Disorder Y Diabetes Y High Cholesterol Y Hypertension Y Immunizations Vaccine Type Date Status Note Provider Nam e and Address Organization Details Recorded Time Tdap 11/21/2013 completed ALESSANDRO [facility] 07/07/2023 10:14:26 Past Encounters Encounter ID Performer Location Encounter Start Date Encounter Closed Date Diagnosis/Indication Diagnosis SNOMED-CT Code Diagnosis ICD10 Code Diagnosis IMO Codes Diagnosis Note [id number] GUCCI URBINA [facility] ([facility] [address] [place] [address] 07/07/2023 09:51:34 07/07/2023 14:24:34 Pain of right shoulder joint 8476943169 9722991 M25.511 Normal exam today. Discussed with patient that this pain is likely muscular. Will start meloxicam daily for 10 days. Patient has a follow up with PCP next week. Encouraged to keep this appointmen t. [id number] XENIA PAGAN [facility] ([facility]) [address] [place] [address] 07/13/2023 14:52:56 07/13/2023 15:57:25 Type 2 diabetes mellitus 30447036 E11.42 Nocturia 954113523 R35.1 Pain of mu ltiple joints 88523862 M25.50 Skin irritation 78237182 7 L30.9 Wheezing 35473479 R06.2 Insomnia 809276338 G47.0 0 [id number] XENIA PAGAN [facility] ([facility]) [address] [place] [address] 08/13/2023 09:48:45 08/13/2023 11:56:39 Uncontrolled type 2 diabetes mellitus 783997114 E11.65 He is wondering about getting an insulin pump again. Insomnia 575975368 G47.0 0 He has been taking 50mg and he reports it helps him get to sleep but not stay asleep. Pain of bi lateral knee joints 6811868164 32423 M25.454 [id number] XENIA PAGAN [facility] ([facility]) [address] [place] [address] 12/03/2023 09:57:10 12/03/2023 11:17:54 Uncontrolled type 2 diabetes mellitus 256411749 E11.[address] Hammond. Left lower quadrant pain 824036181 R10.32 Benign pro static hyperplasia 275991387 N40.0 He has been out of medication for a while. Erectile dysfunction 860 306770 F52.21 Change in stool caliber 63736497 R19.5 Stools have gotten thinner at times he is having incontinen ce. Pain of mu ltiple joints 93887280 M25.50 Insomnia 116541274 G47.0 0 [id number] XENIA PAGAN [facility] ([facility]) [address] [place] [address] 12/15/2023 15:47:22 12/15/2023 17:19:55 Left lower quadrant pain 482005951 R10.32 [id number] CORINA HAY [facility] ([facility]) [address] [place] [address] 04/07/2024 10:16:54 04/07/2024 11:43:31 Abdominal pain 44981712 R10.9 Last colonoscop y 8 months ago, normal per patient. CT of abdomen/pe lvis, ultrasound from November with no acute findings. Erectile dysfunction 860 522767 F52.21 Atopic dermatitis 992425 01 L20.9 Pain of mu ltiple joints 27820299 M25.50 Benign pro static hyperplasia 710341482 N40.0 Tamsulosin helping. Chronic insomnia 8720437 04 F51.04 Quetiapine helping him rest well. [id number] CORINA HAY [facility] ([facility]) [address] [place] [address] 06/02/2024 09:14:32 06/02/2024 10:31:08 Type 2 diabetes mellitus without complication 250367633 E11.9 Erectile dysfunction 860 917254 F52.21 Patient reports Cialis didn't even start to help. Diarrhea 44389457 R19.7 Acute maxi llary sinusitis 04480199 J01.00 [id number] CORINA HAY [facility] ([facility]) [address] [place] [address] 06/22/2024 08:34:00 06/23/2024 11:59:07 [id number] CORINA HAY [facility] ([facility]) [address] [place] [address] 09/08/2024 09:35:20 09/08/2024 10:25:39 Abdominal pain 94475025 R10.9 Last colonoscop y 8 months ago, normal per patient. CT of abdomen/pe lvis, ultrasound from November with no acute findings. Pain in his groin and the right and left upper quadrant. Erectile dysfunction 860 808295 F52.21 Patient reports Cialis didn't even start to help. Benign ess ential hypertension 1463396 I10 Blood pressure good at home. A little elevated here. Skin irritation 11966455 7 L30.9 Type 2 mary betes mellitus 36053976 E11.42 [id number] [facility] [address] [place] [address] 03/16/2025 08:46:28 03/16/2025 10:24:51 Tick bite 06872722 W57.XXXA 02859070 Well contr olled type 2 diabetes mellitus 170634638 E11.[id number] Hammond. Last A1C 7.9 Diarrhea 33283197 R19.7 26603955 Patient worried this is related to alpha gal. [id number] CORINA HAY [facility] ([facility] [address] [place] [address] 05/21/2025 12:02:53 05/21/2025 14:00:59 Abdominal pain 81178095 R10.9 Last colonoscop y 8 months ago, normal per patient. CT of abdomen/pe lvis, ultrasound from November 2023 with no acute findings. Pain in around his belly button. Feels like food gets stuck. Frequent headache 211177 003 R51.9 [id number] Erectile dysfunction 860 565772 N52.9 [id number] Patient reports Cialis didn't even start to help. [id number] AJ FELIX [employer]ACH[employer] FEEDER [facility] ([facility]) [address] [place] [address] 06/04/2025 15:37:11 06/04/2025 18:46:21 Essential hypertension 95606782 I10 93807 Will increase to 20mg lisinopril daily and add HCTZ. Pt scheduled f/u appt with his PCP in 1 week for re-evaluat ion of his bp readings and possibly blood work to check potasium level.When pt arrives home he may take 1 add'l 10mg lisinopril since bp still high here in clinic today. Insomnia 015509112 G47.0 0 1 month refill provided today. Will discuss with PCP regarding further refills. Neuropathy due to diabetes mellitus 537976297 E11.40 1 month refill provided today. Will discuss with PCP regarding further refills. [id number] CORINA HAY [employer] [facility] [address] [place] [address] 06/08/2025 10:27:55 06/08/2025 11:38:09 Essential hypertension 99855983 I10 52537 Well contr olled type 2 diabetes mellitus 231654333 E11.[id number] Hammond. Screening for malignant neoplasm of prostate 327027381 Z12.5 118994 Diabetic p eripheral neuropathy 155000859 E11.42 622715 Currently taking Gabapentin . 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 Health Concerns Section Related Observation LastModified by Organization Detai ls LastModified Time None Recorded Concern Status LastModified by Organization Details LastModified Time None Recorded Advance Directives Directive None Recorded Payers Insurance Date Sequence Insurance Name Policy Number Policy Christian Covered Member ID Christian Member ID Guarantor Name 06/11/2025 1 [employer] [place] (MEDICA[place] REPLACEMENT - HMO) [id number] Will Lambert [id number] Will Lambert 06/04/2025 [place] [facility] Will Lambert Jr [id number] Wlil Lambert 09/08/2024 1 [place] Will Lambert Jr [id number] Will Lambert Notes Date Note Type Note Provider Name and Address Organization Details Recorded Time 5 text/html Abdominal PainReported by PatientAbdominal PainFor quality, patient reportsaching. For location, patient reportsgeneralized. For severity, patient reportsmild. For onset/timing, patient reportschronic. For aggravating factors, patient reportseating and drinking. For associated symptoms, patient reportsno fever,no chills,no nausea,no vomiting, andno diarrhea. Sexual DysfunctionReported by PatientHPIFor associated symptoms, patient reportsinability to obtain adequate erection(medication did not help). For severity, patient reportsmoderate.ROS as noted in the HPI JAKUB PAGANP [address] [place], [address], [facility] 09/08/2024 10:25:10 5 text/html DiarrheaReported by PatientHPIFor quality, patient reportsloose. For severity, patient reportsmoderate. For duration, patient reportsacute (<14 days). For associated symptoms, patient reportsno fever. CORINA HAY, [facility] [address] [place], [address], [facility] 03/29/2025 15:49:36 5 text/html Abdominal PainReported by PatientAbdominal PainFor quality, patient reportsdullandfullness. For severity, patient reportsworsebut reportsmoderate. For associated symptoms, patient reportsdiarrheabut reportsno fever. For location, patient reportsgeneralized. For duration, patient reportsintermittent. For onset/timing, patient reportschronic. For aggravating factors, patient reportseating and drinking. CORINA HAY, [address], [address], [facility] 05/21/2025 13:05:17 5 text/html Hypertension IM/FMReported by PatientROS as noted in the HPI walk in patientpatient is here today for hypertension. patient had been on lisinopril 10mg for years then he stopped it about 2 years ago. Recently noticed his bp increasing so restarted the lisinopril 10 mg daily. Had a lopez today and checked his bp. Was 178/112 this morning. Denies cp, weakness, slurred speech or stroke symptoms. Also states he ran out of his gabapentin 2-3 days ago and took his last quetiapine last night. Requesting refills AJ FELIX, [facility] [address] [place], [address], [facility] 06/04/2025 18:44:09 5 text/html DiabetesReported by PatientHPIFor duration, patient reportschronic. For control, patient reportstreated with insulinandhemoglobin a1c has been 7-8. For compliance, patient reportscompliant with medicationsandcompliant with follow-up visits. For self care, patient reportsmonitoring glucose __. HeadacheReported by Patient Hypertension IM/FMReported by PatientHPIFor severity, patient reportsstage 2 (>140/>90 mmhg). For quality, patient reportshere for check-up. For duration, patient reportshtn present for ___ years. CORINA HAY, [facility] [address] [place], [address], [facility] 06/08/2025 11:31:20
--- OUTSIDE RECORDS SUMMARY | 2025-06-20 15:59 | XMS_ITS | Patient Health Record ---
Author Organization [facility] Address [address] [place] [address] Care Team Providers Care Site Supervising Technical Operator Name Role Phone Becky Dillon Primary Care Provider [phone] BECKY DILLON Unavailable Unavailable Allergies Allergen (clinical drug ingredient) [...] day(s) 10/19/2022 Active Gabapentin *[facility]* Active OneTouch Delica Plus Vxcmit89O - Miscellaneous TEST BLOOD SUGAR FOUR TIMES [...] Active Novolog PenFill U-100 Insulin *Reorder from [facility] for eRx and Interaction Alerts* Active Tylenol *Pick strength-form from [facility] for e[facility]* Active Albuterol Sulfate *Pick strength-form from [facility] for eRX* Active SEROquel *Pick strength-form from [facility] for e[facility]* Active Meloxicam *Pick strength-form from [facility] for e[facility]* Active Levemir FlexTouch U100 Insulin *Reorder from [facility] for eRx and Interaction Alerts* Active Social [...] Status W/U Status Risk Notes Problem Neuropathy (887930891) Neuropathy (G62.9) Active confirmed Problem Type II diabetes mellitus without complication (524594042) Diabetes (E11.9) Active confirmed Problem Benign prostatic hyperplasia (124112568) BPH (benign prostatic hyperplasia) (N40.0) Active confirmed Problem Long-term current use of insulin (588947265) Current use of insulin (Z79.4) Active confirmed Plan Of Treatment No Information Insurance Providers Payer Name Payer Address Payer Phone Subscriber Number Group Number Insured Name Patient Relationship to Insured Coverage Start Date Coverage End Date [place] [address] [place] [address] [phone] [id number] Will Lambert Self - patient is the insured Medical (General) History Surgical History Surgery Date(Month/Year) left knee surgery Neck Bone graft
--- NOTE | 2025-06-20 16:00 | ED_ITS ---
HPI - Neuro Symptoms/Deficit 2 General: Chief Complaint: Neuro Symptoms/Deficit Stated Complaint: Stroke like symtoms Time Seen by Provider: 06/20/25 15:55 History of Present Illness: 55-year-old man with a history of tobacc o dependence, depression and anxiety, diabetes, hypertension, hyperlipidemia, obstructive sleep apnea, GERD and osteoarthritis who presents emergency room with neurologic symptoms. He says this morning when he got up for work at around 3 AM he went outside and had a cigarette when he came back in he developed right sided visual loss. Numbness in his right arm. No weakness. He had then developed some numbness in his right face. Unclear why but he did not come in until almost 4 PM. Symptoms have mostly resolved. He has some left-sided headache. Some mild right visual loss or blurriness. Still with some paresthesia in his right hand. No focal motor deficits. No facial droop. Related Data Home Medications ?Medication ?Instructions ?Recorded ?Confirmed meloxicam 15 mg tablet 15 mg PO DAILY 05/18/2505/24 quetiapine 50 mg tablet 50 mg PO BEDTIME 05/18/25 acetaminophen 325 mg capsule 325 mg PO QID PRN Pain 06/20/25 amlodipine 2.5 mg tablet 2.5 mg PO DAILY 06/14/25 budesonide-formoterol HFA 160 2 puff inhalation BID MS N 06/14/25 06/20/25 mcg-4.5 mcg/actuation aerosol Shortness Of Breath inhaler (Symbicort) lisinopril 20 1 tab PO DAILY 06/14/2505/24 mg-hydrochlorothiazide 12.5 mg tablet Previous Rx's ?Medication ?Instructions ?Recorded cpap #1 ea 11/16/19 pen needle, diabetic 32 gauge x #100 ea 12/08/19 (1st Tier Unifine Pentips) pen needle, diabetic 31 gauge x #100 ea 05/03/2301/05 (Comfort EZ Pen [place]) diabetic shoes with 3 inserts #1 ea 06/15/23 insulin pump cartridge,automated #1 ea 09/01/23 dose,BT with controller subcutaneous (Omnipod 5 G6 Intro Kit (Gen 5) subcutaneous cartridge with controller) blood-glucose,superintendent production,cont #1 ea 11/22/24 (Dexcom G7 Regional Engineer) [place] #1 ea 03/19/25 insulin pump cart,auto,BT,G6/7 #5 ea 03/30/25 (Omnipod 5 G6-G7 Pods (Gen 5) subcutaneous cartridge) blood-glucose sensor (Dexcom G7 #9 ea 04/16/25 Sensor device) gabapentin 300 mg capsule See Rx Instructions .Route 0 05/18/25 .COMPLEX #150 caps insulin lispro 100 unit/mL See Rx Instructions .Route 05/31/25 subcutaneous solution .COMPLEX #130 mL Allergies Allergy/AdvReac Type Severity Reaction Status Date / Time sulfamethoxazole (From Allergy Unknown Verified 06/14/25 08:10 Bactrim) trimethoprim (From Bactrim) Allergy Unknown Verified 06/14/25 08:10 citalopram (From Celexa) AdvReac shakes Verified 06/14/25 08:10 Root Beer Allergy Intermediate ALGY-Swell Uncoded 06/14/25 08:10 Lip/Tongue/Throat Review of Systems 2 Narrative: Constitutional symptoms: Negative except as documented in HPI. Skin symptoms: Negative except as documented in HPI. Eye symptoms: Negative except as documented in HPI. ENMT symptoms: Negative except as documented in HPI. Respiratory symptoms: Negative except as documented in HPI. Cardiovascular symptoms: Negative except as documented in HPI. Gastrointestinal symptoms: Negative except as documented in HPI. Genitourinary symptoms: Negative except as documented in HPI. Musculoskeletal symptoms: Negative except as documented in HPI. Neurologic symptoms: Negative except as documented in HPI. Psychiatric symptoms: Negative except as documented in HPI. Endocrine symptoms: Negative except as documented in HPI. PFSH ED 2 PFSH: Medical History (Updated 06/20/25 @ 18:28 by Kenyon Salmeron MD) Leg pain Generalized anxiety disorder Major depressive disorder, recurrent severe without psychotic features Post-traumatic stress disorder, unspecified Diabetes mellitus Hypertension Hyperlipidemia RALPH (obstructive sleep apnea) GERD (gastroesophageal reflux disease) Depression with anxiety Osteoarthritis Family History Family/Other Diabetes Father Hypertension Social History Smoking and tobacco/nicotine status: current every day tobacco/nicotine user cigarettes Packs smoked per day: 0.5 Years cigarettes smoked: 34 and smokeless tobacco Smokeless tobacco user: snuff Smokeless tobacco details: 1 can per week Quit status (tobacco/nicotine): not considering quitting Second hand smoke exposure: Yes Alcohol intake: never Substance/Drug Use: never Lives independently: Yes Marital status: single service: No Current occupational status: employed Current gender identity: Male Special radha needs: No Agree to transfusion: Yes Physical Exam 2 Narrative: EXAM NARRATIVE: General: Alert, no acute distress. Skin: Warm, dry. Head: Normocephalic, atraumatic. Neck: Supple, trachea midline. Eye: Extraocular movements are intact. Ears, nose, mouth and throat: mucosa moist. Cardiovascular: Regular, Normal peripheral perfusion. Respiratory: Lungs are clear to auscultation, respirations are non-labored, breath sounds are equal, Symmetrical chest wall expansion. Gastrointestinal: Soft, Nontender, Non distended Musculoskeletal: Normal ROM, no deformity. Neurological: Alert and oriented, No focal neurological deficit observed. Patient reports some tingling in his left hand. Has some blurred vision in his right periphery. Psychiatric: Cooperative, appropriate mood & affect. Course 2 Vital Signs: Vital signs: Vital Signs Temperature 98.6 F 06/20/25 15:56 Pulse Rate 87 06/20/25 18:32 Respiratory Rate 17 06/20/25 18:32 Blood Pressure 165/101 06/20/25 18:32 Pulse Oximetry 95 06/20/25 18:32 Oxygen Delivery Me thod Room Air 06/20/25 18:32 MDM - Neuro Symptoms/Deficit Medical Decision Making Medical decision making: Patient's reason for coming to the emergency room: Stroke symptoms. Social determinants: Patient is employed and . I reviewed the patient's medical record. 55-year-old man with a history of tobacco dependence, depression and anxiety, diabetes, hypertension, hyperlipidemia, obstructive sleep apnea, GERD I reviewed the patient's current home meds Alternate historians: None available. Patient is an appropriate historian Differential diagnosis for patient with focal neurologic deficit(s) includes but not limited to and based on the above HPI, review of systems and physical exam: ischemic stroke, hemorrhagic stroke and embolic stroke secondary to atrial fibrillation), TIA, Riley's palsy, metabolic encephalopathy with previous stroke. Orders placed to evaluate differential diagnosis based on the above differential, HPI and physical exam Last known well time was around 3 AM,Around 12 hours ago. NIH Stroke Scale/Score (NIHSS) from [email or web address] on 06/20/2025 All calculations should be rechecked by clinician prior to use RESULT SUMMARY: 2 points NIH Stroke Scale INPUTS: 1A: Level of consciousness ?> 0 = Alert; keenly responsive 1B: Ask month and age ?> 0 = Both questions right 1C: 'Blink eyes' & 'squeeze hands' ?> 0 = Performs both tasks 2: Horizontal extraocular movements ?> 0 = Normal 3: Visual johnson ?> 1 = Partial hemianopia 4: Facial palsy ?> 0 = Normal symmetry 5A: Left arm motor drift ?> 0 = No drift for 10 seconds 5B: Right arm motor drift ?> 0 = No drift for 10 seconds 6A: Left leg motor drift ?> 0 = No drift for 5 seconds 6B: Right leg motor drift ?> 0 = No drift for 5 seconds 7: Limb Ataxia ?> 0 = No ataxia 8: Sensation ?> 1 = Mild-moderate loss: can sense being touched 9: Language/aphasia ?> 0 = Normal; no aphasia 10: Dysarthria ?> 0 = Normal 11: Extinction/inattention ?> 0 = No abnormality Consultation: I spoke with Dr. Green who is on-call for neurology. The patient is out of the window for TNKase. CTA being done to make sure he does not have any large vessel occlusions that would require thrombectomy. CT head: No acute intracranial process. No intracranial hemorrhage, no evidence of infarct. No evidence of acute fracture. This was reviewed and interpreted by myself the emergency room physician. I also reviewed the radiology report. CTA of the head and neck: No obvious stenosis or occlusions are identified. No mass. This was reviewed and interpreted by myself the emergency room physician. I also reviewed the radiology report. EKG: Time 1615. Rate 68. Normal sinus rhythm, No ST-T changes, no ectopy, normal MS & QRS intervals, This was reviewed and interpreted by myself the ER physician at 1620. Lab Review: Laboratory results were reviewed and interpreted by myself the emergency room physician. No leukocytosis. No anemia. No renal failure. Liver enzymes are normal. Assessment of risk: Level of risk: Moderate risk. Patient has multiple risk factors for stroke. Tobacco abuse, hypertension, hyperlipidemia. Diabetes. Hospitalization considerations: Patient will be admitted for further stroke workup Reexamination: Patient remained stable. No increased work of breathing. No altered mental status. No focal motor deficits. Patient still complains of some hand numbness. Consultation: I spoke with Dr. Salmeron who is on-call for the hospitalist service who agrees to admission. Assessment and plan: Cerebrovascular accident Accelerated hypertension Labetalol for blood pressure. -I discussed the patient with the hospitalist on-call who is admitting the patient. - Discussed findings and plan with patient. Answered any questions. - All laboratory values were reviewed and interpreted personally by myself, the ER physician - All imaging was reviewed and interpreted personally by myself, the ER physician. - Evaluation and treatment of this problem were appropriate in the emergency setting Lab Data 06/20/25 16:23 06/20/25 16:[address] 06/20/25 15:55 IMPRESSION: 1. Moderate chronic white matter microvascular ischemic disease. 2. No acute intracranial abnormality identified. ASSESSMENT: ASPECTS ([place] Stroke Program Early CT Score) is 10. ADDENDUM: 06/20/25 1613 THIS REPORT CONTAINS FINDINGS THAT MAY BE CRITICAL TO PATIENT CARE. The findings were verbally communicated by me to DR. LOYD KRISHNAMURTHY via telephone conference at 4:11 PM CDT on 06/20/2025. The findings were acknowledged and understood. Head/Neck CTA 06/20/25 15:58 IMPRESSION: No acute intracranial vascular abnormality identified. IMPRESSION: No acute extracranial vascular abnormality identified. REFERENCES: NASCET CRITERIA. The degree of stenosis in the cervical segment of the internal carotid artery is based on NASCET criteria. Normal is no stenosis. Mild is less than 50% stenosis. Moderate is 50-69% stenosis. Severe is 70% to 99% stenosis. Total occlusion is no detectable patent lumen. ADDENDUM: 06/20/25 1642 THIS REPORT CONTAINS FINDINGS THAT MAY BE CRITICAL TO PATIENT CARE. The findings were verbally communicated by me to DR. LOYD KRISHNAMURTHY via telephone conference at 4:42 PM CDT on 06/20/2025. The findings were acknowledged and understood. Laboratory Results WBC 9.40 10^3/uL (3.29-11.43) 06/20/25 16:23 RBC 5.31 10^6/uL (3.85-5.65) 06/20/25 16:23 Hgb 15.40 g/dL (11.27-16.99) 06/20/25 16:23 Hct 45.9 % (37-53) 06/20/25 16:23 MCV 86.4 fl (82-101) 06/20/25 16:23 MCH 29.0 pg (27-33) 06/20/25 16:23 MCHC 33.6 g/dL (30-55) 06/20/25 16:23 RDW 13.6 % (12.1-15.1) 06/20/25 16:23 Plt Count 176 10^3/cmm (157-399) 06/20/25 16:23 MPV 11.3 fL (7.4-10.4) H 06/20/25 16:23 Neut % (Auto) 57.8 % 06/20/25 16:23 Lymph % (Auto) 28.1 % 06/20/25 16:23 [place] % (Auto) 8.7 % 06/20/25 16:23 Eos % (Auto) 4.5 % 06/20/25 16:23 Baso % (Auto) 0.6 % 06/20/25 16:23 Neut # (Auto) 5.43 10^3/uL (1.8-7.7) 06/20/25 16:23 Lymph # (Auto) 2.6 10^3/uL (0.8-4.8) 06/20/25 16:23 [place] # (Auto) 0.8 10^3/uL (0.2-0.9) 06/20/25 16:23 Eos # (Auto) 0.4 10^3/uL (0.0-0.8) 06/20/25 16:23 Baso # (Auto) 0.1 10^3/uL (0.0-0.1) 06/20/25 16:23 Nucleated RBC % (auto) 0 % 06/20/25 16: Nucleated RBCs # 0.0 /100WBC 06/20/25 16:23 PT 13.00 SECONDS (12.1-14.9) 06/20/25 16:23 INR 0.92 (0.8-1.2) 06/20/25 16:23 APTT 29.6 SECONDS (23.9-36.7) 06/20/25 16:23 Sodium 137 mmol/L (136-145) 06/20/25 16:23 Potassium 3.7 mmol/L (3.5-5.1) 06/20/25 16:23 Chloride 103 mmol/L (98-107) 06/20/25 16:23 Carbon Dioxide 24 mmol/L (22-29) 06/20/25 16:23 Anion Gap 13.7 (5-19) 06/20/25 16:23 BUN 18 mg/dL (6-20) 06/20/25 16:23 Creatinine 0.8 mg/dL (0.7-1.2) 06/20/25 16:23 GFR Calculation 100.4 mL/min (90-130) 06/20/25 16:23 Glucose 150 mg/dL (65-115) H 06/20/25 16:23 POC Glucose 138 mg/dL (70-110) H 06/20/25 16:24 Calculated Osmolality 289 mOsm/kg (285-295) 06/20/25 16:23 Calcium 8.5 mg/dL (8.5-10.5) 06/20/25 16:23 Total Bilirubin 0.3 mg/dL (0.15-1.2) 06/20/25 16:23 AST 25 U/L (0-40) 06/20/25 16:23 ALT 45 U/L (0-41) H 06/20/25 16:23 Alkaline Phosphatase 79 U/L (40-130) 06/20/25 16:23 Total Protein 6.7 g/dL (6.6-8.7) 06/20/25 16:23 Albumin 4.0 g/dL (3.5-5.2) 06/20/25 16:23 Globulin 2.7 g/dL (1.3-4.6) 06/20/25 16:23 Amorphous Sediment Not Reportable 06/20/25 18:09 All radiology interpretation(s) finalized by discharge Discharge Plan Discharge Patient Disposition: Admitted As Inpatient Clinical Impression: Cerebrovascular accident, Accelerated hypertension Condition: Stable Coding Level of Care Code ED Dental Laboratory Technology Teacher for Wilbur Marino
[2025-06-20] MEDS: iohexol 350 mg/mL 500 mL Btl (per mL) IV (16:11)
--- NOTE | 2025-06-20 16:15 | ECG_ITS ---
[facility] 2025-[facility]20 Pat Name: Will Lambert Department: Room: Gender: Male Program Paraprofessional: : 1970 Requested By: Shilpi Mackey Order Number: [id number] MD: Jose Carlos Whitman M.D. Measurements Intervals [place] Rate: 68 P: 51 IA: 175 QRS: 19 QRSD: 109 T: 89 QT: 401 QTc: 429 Interpretive Statements SINUS RHYTHM POOR R WAVE PROGRESSION Compared to ECG 07/01/2023 09:46:19 POOR R WAVE PROGRESSION IS NEW Electronically Signed On 06-21-2025 19:51:19 CDT by Jose Carlos Whitman M.D. [email or web address]
[2025-06-20 16:55] LABS: Hematocrit 45.9 % (37-53); Hemoglobin 15.40 g/dL (11.27-16.99); Mean Corpuscular HGB Conc 33.6 g/dL (30-55); Mean Corpuscular Hemoglobin 29.0 pg (27-33); Mean Corpuscular Volume 86.4 fl (82-101); Nucleated Red Blood Cells % 0 %; Platelet Count 176 10^3/cmm (157-399); Red Blood Count 5.31 10^6/uL (3.85-5.65); White Blood Count 9.40 10^3/uL (3.29-11.43)
[2025-06-20 17:09] LABS: INR 0.92 (0.8-1.2); Prothrombin Time 13.00 SECONDS (12.1-14.9)
[2025-06-20 17:10] LABS: Partial Thromboplastin Time 29.6 SECONDS (23.9-36.7)
[2025-06-20 17:13] LABS: Alanine Aminotransferase 45 U/L (0-41); Albumin Level 4.0 g/dL (3.5-5.2); Alkaline Phosphatase 79 U/L (40-130); Anion Gap 13.7 (5-19); Aspartate Amino Transferase 25 U/L (0-40); Blood Urea Nitrogen 18 mg/dL (6-20); Calcium 8.5 mg/dL (8.5-10.5); Carbon Dioxide 24 mmol/L (22-29); Chloride 103 mmol/L (98-107); Creatinine Clr Calc Pharmacy 106.0794; Globulin 2.7 g/dL (1.3-4.6); Glucose 150 mg/dL (65-115); Osmolality Calculated 289 mOsm/kg (285-295); Potassium 3.7 mmol/L (3.5-5.1); Sodium 137 mmol/L (136-145); Total Protein 6.7 g/dL (6.6-8.7)
[2025-06-20] MEDS: hyDRALAzine 20 mg/mL INJ 1 mL IVP (17:19)
--- NOTE | 2025-06-20 18:23 | USCV_ITS ---
Will Lambert Age: 55 Gender: M : 1970 Exam Date: 06/20/2025 18:47 Ordering Phys: Kenyno Salmeron MD Technologist: GORGE Exam Location: [facility] Indication: sob, HTN, HL, DM2, RALPH BP: 165 / 101 HR: 78 Rhythm: Sinus Technical Quality: Adequate MEASUREMENTS (Male / Female) Normal Values 2D ECHO LV Diastolic Diameter PLAX 3.7 cm 4.2 - 5.9 / 3.9 - 5.3 cm IVS Diastolic Thickness 1.7 cm 0.6 - 1.0 / 0.6 - 0.9 cm IVS Systolic Thickness 1.7 cm LVPW Diastolic Thickness 1.6 cm 0.6 - 1.0 / 0.6 - 0.9 cm LVPW Systolic Thickness 2.4 cm LVOT Diameter 2.3 cm LV Ejection Fraction 2D Teich 56.7 % LV Ejection Fraction MOD 4C 74.8 % LV Ejection Fraction MOD 2C 66.7 % LV Ejection Fraction 2C AL 70.8 % LA Diameter 3.7 cm Aorta at Sinotubular Diameter 2.9 cm IVC Diameter 1.0 cm M-MODE LA Ao Ratio MM 1.3 AV Cusp Separation MM 2.2 cm DOPPLER AV Peak Velocity 116.0 cm/s LVOT Peak Velocity 99.0 cm/s AV Area Cont Eq vti 4.0 cm squared AV Area Cont Eq pk 3.5 cm squared MV Peak Velocity 150.0 cm/s MV Area PHT 3.2 cm squared Mitral E to A Ratio 0.7 TV Peak E Velocity 59.0 cm/s PV Peak Velocity 94.0 cm/s FINDINGS Left Ventricle Normal left ventricular size, systolic function and wall thickness, with no regional wall motion abnormalities. Left ventricular ejection fraction is estimated at 60 %. Grade I/IV diastolic dysfunction (abnormal relaxation filling pattern), normal to mildly elevated filling pressures. Right Ventricle Normal right ventricular size and systolic function. Right Atrium Normal right atrial size. Left Atrium Normal left atrial size. IA Septum Normal appearance of the interatrial septum. Mitral Valve Mildly thickened mitral valve. No mitral valve stenosis. Mild mitral valve regurgitation. Aortic Valve Normal aortic valve structure. No aortic valve stenosis or regurgitation. Tricuspid Valve Trace tricuspid valve regurgitation. Pulmonic Valve Normal pulmonic valve structure. No pulmonic valve stenosis or regurgitation. Pericardium No pericardial effusion. Aorta Normal diameter of the aortic root and ascending thoracic aorta. IVC Normal IVC diameter. CONCLUSIONS Normal left ventricular size, systolic function and wall thickness, with no regional wall motion abnormalities. Left ventricular ejection fraction is estimated at 60 %. Grade I/IV diastolic dysfunction (abnormal relaxation filling pattern), normal to mildly elevated filling pressures. Mildly thickened mitral valve. No mitral valve stenosis. Mild mitral valve regurgitation. There is no pericardial effusion. Right atrial pressure is around 5 mm of mercury. Dulce Garcia MD (Electronically Signed) Final Date: 21 June 2025 15:41 S
--- NOTE | 2025-06-20 18:24 | PM.HP ---
Providers/Chief Complaint Primary Care Provider: XENIA Araya Chief Complaint: Stroke like symtoms History of Present Illness Will Lambert Jr is a 55 year old male with a past medical history of hypertension, hyperlipidemia, type 2 diabetes mellitus, sleep apnea, who presents [facility] due to right hand numbness, paresthesias, right facial numbness, right visual loss. Currently patient alert oriented x 3, following all commands, he is eating a sandwich as he is worried about developing low blood sugar, he has minimal right hand numbness that persist but no other focal neurologic deficits, but he tells me that they are minimal. He tells me that his symptoms started about 4 AM when he woke up he noticed that he had right arm numbness, he went out to take a small, and he noticed it more with right facial numbness, he did not seek medical attention he actually drove to work and he noticed that he was swerving on the road he might of in the wind, he might have bit his right hand numbness, when he went to work, he noticed that he could not see out of his right eye, he had to use his left eye to see what he was doing, he waited to come to the emergency room till about 4 PM, he did subsequently develop a headache, currently no visual deficits, no facial droop no slurring words, no trouble swallowing, no focal weakness, no trouble coordinating, no nausea, no vomiting, no lightheadedness, dizziness, no chest pain, paresthesia in hand is minimal, he is at a stroke scale is 1, he is out of the tPA window, came in as a stroke alert, was not a candidate, CTA head and neck no large vessel occlusion, CT head no acute findings, Review of Systems Const: Denies: fever(s) or chills Card: Denies: chest pain Resp: Denies: dyspnea GI: Denies: abdominal pain Medications/Allergies Home Medications ?Medication ?Instructions ?Recorded ?Confirmed ?Last Taken ?Type cpap #1 ea 11/16/19 06/20/25 Unknown Rx pen needle, diabetic 32 gauge x #100 ea 12/08/19 06/20/25 Unknown Rx 5/32 (1st Tier Unifine Pentips) pen needle, diabetic 31 gauge x #100 ea 05/03/23 06/20/25 Unknown Rx 5/16 (Comfort EZ Pen [place]) diabetic shoes with 3 inserts #1 ea 06/15/23 06/20/25 Unknown Rx insulin pump cartridge,automated #1 ea 09/01/23 06/20/25 Unknown Rx dose,BT with controller subcutaneous (Omnipod 5 G6 Intro Kit (Gen 5) subcutaneous cartridge with controller) blood-glucose,leather heel breaster,cont #1 ea 11/22/24 06/20/25 Unknown Rx (Dexcom G7 Supervisor [employer] [place]) Cam Boot #1 ea 03/19/25 06/20/25 Unknown Rx insulin pump cart,auto,BT,G6/7 #5 ea 03/30/25 06/20/25 Unknown Rx (Omnipod 5 G6-G7 Pods (Gen 5) subcutaneous cartridge) blood-glucose sensor (Dexcom G7 #9 ea 04/16/25 06/20/25 Unknown Rx Sensor device) gabapentin 300 mg capsule See Rx Instructions .Route 05/18/25 06/20/25 06/20/25 Rx .COMPLEX #150 caps meloxicam 15 mg tablet 15 mg PO DAILY 05/18/25 06/20/25 06/20/25 History quetiapine 50 mg tablet 50 mg PO BEDTIME 05/18/25 06/20/25 06/19/25 History insulin lispro 100 unit/mL See Rx Instructions .Route 05/31/25 06/20/25 Unknown Rx subcutaneous solution .COMPLEX #130 mL acetaminophen 325 mg capsule 325 mg PO QID PRN Pain 06/14/25 06/20/25 Unknown History amlodipine 2.5 mg tablet 2.5 mg PO DAILY 06/14/25 06/20/25 06/20/25 History budesonide-formoterol HFA 160 2 puff inhalation BID PRN 06/14/25 06/20/25 Unknown History mcg-4.5 mcg/actuation aerosol Shortness Of Breath inhaler (Symbicort) lisinopril 20 1 tab PO DAILY 06/14/25 06/20/25 06/20/25 History mg-hydrochlorothiazide 12.5 mg tablet Allergies Allergy/AdvReac Type Severity Reaction Status Date / Time sulfamethoxazole (From Allergy Unknown Verified 06/14/25 08:10 Bactrim) trimethoprim (From Bactrim) Allergy Unknown Verified 06/14/25 08:10 citalopram (From Celexa) AdvReac shakes Verified 06/14/25 08:10 Root Beer Allergy Intermediate ALGY-Swell Uncoded 06/14/25 08:10 Lip/Tongue/Throat PFSH Acute PFSH: Medical History Leg pain Generalized anxiety disorder Major depressive disorder, recurrent severe without psychotic features Post-traumatic stress disorder, unspecified Diabetes mellitus Hypertension Hyperlipidemia RALPH (obstructive sleep apnea) GERD (gastroesophageal reflux disease) Depression with anxiety Osteoarthritis Family History Family/Other Diabetes Father Hypertension Social History Smoking and tobacco/nicotine status: current every day tobacco/nicotine user cigarettes Packs smoked per day: 0.5 Years cigarettes smoked: 34 and smokeless tobacco Smokeless tobacco user: snuff Smokeless tobacco details: 1 can per week Quit status (tobacco/nicotine): not considering quitting Second hand smoke exposure: Yes Alcohol intake: never Substance/Drug Use: never Lives independently: Yes Marital status: single service: No Current occupational status: employed Current gender identity: Male Special radha needs: No Agree to transfusion: Yes Vitals/I&O/Wt Last Vital Signs Temp 98.6 F 06/20/25 15:56 Pulse 87 06/20/25 18:05 Resp 16 06/20/25 18:05 BP 142/102 06/20/25 18:05 Pulse Ox 94 06/20/25 18:05 O2 Del Method Room Air 06/20/25 18:05 Weight last 48 hrs Weight 77.111 kg Physical Exam Const: COMMON NORMALS: no acute distress and patient oriented x3 HENMT: COMMON NORMALS: normocephalic HEAD & SCALP: normocephalic Eye: COMMON NORMALS: Equal, round and reactive pupils present Neck/C-Spine: COMMON NORMALS: no JVD Resp: COMMON NORMALS: normal respiratory effort, No retractions, No use of accessory muscles and clear to auscultation bilaterally AUSCULTATION: clear to auscultation bilaterally Cardio: COMMON NORMALS: regular rate, regular rhythm, S1 normal heart sound present and S2 normal heart sound present RATE: regular rate RHYTHM: regular rhythm HEART SOUNDS: S1 normal heart sound present and S2 normal heart sound present GI: COMMON NORMALS: Normal to inspection, nondistended, normoactive bowel sounds present, Soft to palpation and non-tender Extremity: COMMON NORMALS: no calf tenderness and no pedal edema Neuro: COMMON NORMALS: patient oriented x3, CN's II-XII intact bilaterally, moves all extremities and no focal motor deficits Psych: COMMON NORMALS: mental status grossly normal Data 06/20/25 16:23 06/20/25 16:23 A&P Assessment and plan 1. Acute CVA (cerebrovascular accident): 2. Hypertension: Plan: - He has been worked up as outpatient for secondary polycythemia secondary obstructive sleep apnea/smoking - Current smoker - Type 2 diabetes mellitus, with diabetic peripheral neuropathy - Thrombocytopenia Acute CVA CT/CT head thrombolytic 34295 IMPRESSION: 1. Moderate chronic white matter microvascular ischemic disease. 2. No acute intracranial abnormality identified. CT angiogram head and neck CT/CT angio headneck* [id number] IMPRESSION: No acute intracranial vascular abnormality identified. IMPRESSION: No acute extracranial vascular abnormality identified. Plan -Allow for permissive hypertension - Cardiac echo - Telemetry monitoring - PT OT - Speech therapy eval - Dysphagia eval - Aspirin, statin - Full code - Lovenox for DVT prophylaxis PDMP PDMP Reviewed: Not Reviewed Attestations Medical Necessity Statement*: Patient requires hospitalization, outpatient with observation, for acute CVA Diagnoses Acute CVA (cerebrovascular accident) I63.9 Hypertension I10
[2025-06-20 18:27] LABS: Glucose Urine UA Negative (Normal); Nitrate Urine Negative (Negative)
[2025-06-20 18:29] LABS: Add Urine Microscopic? YES
[2025-06-20 18:34] LABS: PCP Screen Urine Negative (Negative)
[2025-06-20 18:40] LABS: Specific Gravity, Urine 1.041 (1.005-1.030)
[2025-06-21] VITALS (9 sets, daily range): BP systolic 135–192; BP diastolic 75–102; PULSE 61–79; RESP 15–18; TEMP 36.3–36.6; O2SAT 94–95; BMI 25.8
[2025-06-21] MEDS: pantoprazole 40 mg SDV IVP (04:25)
[2025-06-21 06:20] LABS: Hematocrit 45.7 % (37-53); Hemoglobin 15.40 g/dL (11.27-16.99); Mean Corpuscular HGB Conc 33.7 g/dL (30-55); Mean Corpuscular Hemoglobin 29.1 pg (27-33); Mean Corpuscular Volume 86.2 fl (82-101); Nucleated Red Blood Cells % 0 %; Platelet Count 162 10^3/cmm (157-399); Red Blood Count 5.30 10^6/uL (3.85-5.65); White Blood Count 6.77 10^3/uL (3.29-11.43)
[2025-06-21 06:41] LABS: Alanine Aminotransferase 38 U/L (0-41); Albumin Level 3.8 g/dL (3.5-5.2); Alkaline Phosphatase 83 U/L (40-130); Anion Gap 16.1 (5-19); Aspartate Amino Transferase 20 U/L (0-40); Blood Urea Nitrogen 17 mg/dL (6-20); Calcium 8.9 mg/dL (8.5-10.5); Carbon Dioxide 24 mmol/L (22-29); Chloride 105 mmol/L (98-107); Creatinine Clr Calc Pharmacy 120.3155; Globulin 2.0 g/dL (1.3-4.6); Glucose 297 mg/dL (65-115); Osmolality Calculated 305 mOsm/kg (285-295); Potassium 4.1 mmol/L (3.5-5.1); Sodium 141 mmol/L (136-145); Total Protein 5.8 g/dL (6.6-8.7)
[2025-06-21 06:45] LABS: Cholesterol 169 mg/dL (0-200); Estmated Average Glucose 197; HDL Cholesterol 33 mg/dL (60-100); Hemoglobin A1C 8.5 % (4.0-6.0); Thyroid Stimulating Hormone 1.72 uIU/mL (0.27-4.20); Triglycerides 178 mg/dL (0-150)
--- NOTE | 2025-06-21 11:06 | PC.NURSE ---
member services coordinator rounds at 1000- gave patient stroke education book and went through it together.
--- NOTE | 2025-06-21 12:50 | P.DS_ITS ---
Discharge Providers Date of Admission: 06/20/25 18:21 Date of Discharge: June 21, 2025 Attending Provider at Admission: Kenyon Salmeron MD Attending Provider at Discharge: Kenyon Salmeron MD Primary Care Provider: XENIA Araya Diagnoses at Discharge Discharge Diagnosis 1. Acute CVA (cerebrovascular accident): 2. Essential hypertension: Reason for Visit Reason for Visit: Stroke like [facility] Course Hospital Course Will Lambert Jr is a 55 year old male with a past medical history of hypertension, hyperlipidemia, type 2 diabetes mellitus, sleep apnea, who presents [facility] due to right hand numbness, paresthesias, right facial numbness, right visual loss. Currently patient alert oriented x 3, following all commands, he is eating a sandwich as he is worried about developing low blood sugar, he has minimal right hand numbness that persist but no other focal neurologic deficits, but he tells me that they are minimal. He tells me that his symptoms started about 4 AM when he woke up he noticed that he had right arm numbness, he went out to take a small, and he noticed it more with right facial numbness, he did not seek medical attention he actually drove to work and he noticed that he was swerving on the road he might of in the wind, he might have bit his right hand numbness, when he went to work, he noticed that he could not see out of his right eye, he had to use his left eye to see what he was doing, he waited to come to the emergency room till about 4 PM, he did subsequently develop a headache, currently no visual deficits, no facial droop no slurring words, no trouble swallowing, no focal weakness, no trouble coordinating, no nausea, no vomiting, no lightheadedness, dizziness, no chest pain, paresthesia in hand is minimal, he is at a stroke scale is 1, he is out of the tPA window, came in as a stroke alert, was not a candidate, CTA head and neck no large vessel occlusion, CT head no acute findings, Patient was admitted to [facility] for TIA/acute CVA TIA CT/CT head thrombolytic 29520 IMPRESSION: 1. Moderate chronic white matter microvascular ischemic disease. 2. No acute intracranial abnormality identified. CT angiogram head and neck CT/CT angio headneck* [id number] IMPRESSION: No acute intracranial vascular abnormality identified. IMPRESSION: No acute extracranial vascular abnormality identified. -Monitor -Patient received fluids, aspirin, Plavix -On discharge she is alert oriented x 3, following all commands, no focal neurologic deficits, no focal weakness, no visual deficits, NIH stroke scale 0 -Continue aspirin, on discharge - Plavix for 75 days - Statin intolerance, will discharge with a follow-up with primary care provider for consideration of PSK 9 inhibitor - Discharge with event monitor placed - Smoking cessation - Patient was advised if he has any stroke symptoms to go to the emergency room Physical Exam Const: COMMON NORMALS: no acute distress and patient oriented x3 Resp: COMMON NORMALS: normal respiratory effort, No retractions, No use of accessory muscles and clear to auscultation bilaterally AUSCULTATION: clear to auscultation bilaterally Cardio: COMMON NORMALS: regular rate, regular rhythm, S1 normal heart sound present and S2 normal heart sound present RATE: regular rate RHYTHM: regular rhythm HEART SOUNDS: S1 normal heart sound present and S2 normal heart sound present GI: COMMON NORMALS: Normal to inspection, nondistended, normoactive bowel sounds present and non-tender Extremity: COMMON NORMALS: no calf tenderness and no pedal edema Neuro: COMMON NORMALS: patient oriented x3, CN's II-XII intact bilaterally, moves all extremities and no focal motor deficits Psych: COMMON NORMALS: mental status grossly normal Discharge Data Studies Completed and Pending Completed Studies During Hospitalization Category Date Time Status CT head thrombolytic [id number] Stat Cat Scan 06/20/25 15:55 Completed CTA head neck [CT angio headneck* [id number]] Stat Cat Scan 06/20/25 15:58 Completed Pending at discharge Category Date Time Status CV. echo complete* [id number] Stat Ultrasound 06/20/25 18:23 Taken Radiology Impressions Head CT 06/20/25 15:55 IMPRESSION: 1. Moderate chronic white matter microvascular ischemic disease. 2. No acute intracranial abnormality identified. ASSESSMENT: ASPECTS ([place] Stroke Program Early CT Score) is 10. ADDENDUM: 06/20/25 2912 THIS REPORT CONTAINS FINDINGS THAT MAY BE CRITICAL TO PATIENT CARE. The findings were verbally communicated by me to DR. LOYD KRISHNAMURTHY via telephone conference at 4:11 PM CDT on 06/20/2025. The findings were acknowledged and understood. Head/Neck CTA 06/20/25 15:58 IMPRESSION: No acute intracranial vascular abnormality identified. IMPRESSION: No acute extracranial vascular abnormality identified. REFERENCES: NASCET CRITERIA. The degree of stenosis in the cervical segment of the internal carotid artery is based on NASCET criteria. Normal is no stenosis. Mild is less than 50% stenosis. Moderate is 50-69% stenosis. Severe is 70% to 99% stenosis. Total occlusion is no detectable patent lumen. ADDENDUM: 06/20/25 2912 THIS REPORT CONTAINS FINDINGS THAT MAY BE CRITICAL TO PATIENT CARE. The findings were verbally communicated by me to DR. LOYD KRISHNAMURTHY via telephone conference at 4:42 PM CDT on 06/20/2025. The findings were acknowledged and understood. Laboratory Results WBC 6.77 10^3/uL (3.29-11.43) 06/21/25 05:42 RBC 5.30 10^6/uL (3.85-5.65) 06/21/25 05:42 Hgb 15.40 g/dL (11.27-16.99) 06/21/25 05:42 Hct 45.7 % (37-53) 06/21/25 05:42 MCV 86.2 fl (82-101) 06/21/25 05:42 MCH 29.1 pg (27-33) 06/21/25 05:42 MCHC 33.7 g/dL (30-55) 06/21/25 05:42 RDW 13.6 % (12.1-15.1) 06/21/25 05:42 Plt Count 162 10^3/cmm (157-399) 06/21/25 05:42 MPV 11.4 fL (7.4-10.4) H 06/21/25 05:42 Neut % (Auto) 56.2 % 06/21/25 05:42 Lymph % (Auto) 29.5 % 06/21/25 05:42 Gregory % (Auto) 8.6 % 06/21/25 05:42 Eos % (Auto) 4.7 % 06/21/25 05:42 Baso % (Auto) 0.7 % 06/21/25 05:42 Neut # (Auto) 3.80 10^3/uL (1.8-7.7) 06/21/25 05:42 Lymph # (Auto) 2.0 10^3/uL (0.8-4.8) 06/21/25 05:42 Gregory # (Auto) 0.6 10^3/uL (0.2-0.9) 06/21/25 05:42 Eos # (Auto) 0.3 10^3/uL (0.0-0.8) 06/21/25 05:42 Baso # (Auto) 0.1 10^3/uL (0.0-0.1) 06/21/25 05:42 Nucleated RBC % (auto) 0 % 06/21/25 05:42 Nucleated RBCs # 0.0 /100WBC 06/21/25 05:42 PT 13.00 SECONDS (12.1-14.9) 06/20/25 16:23 INR 0.92 (0.8-1.2) 06/20/25 16:23 APTT 29.6 SECONDS (23.9-36.7) 06/20/25 16:23 Sodium 141 mmol/L (136-145) 06/21/25 05:42 Potassium 4.1 mmol/L (3.5-5.1) 06/21/25 05:42 Chloride 105 mmol/L (98-107) 06/21/25 05:42 Carbon Dioxide 24 mmol/L (22-29) 06/21/25 05:42 Anion Gap 16.1 (5-19) 06/21/25 05:42 BUN 17 mg/dL (6-20) 06/21/25 05:42 Creatinine 0.7 mg/dL (0.7-1.2) 06/21/25 05:42 GFR Calculation 117.1 mL/min (90-130) 06/21/25 05:42 Glucose 297 mg/dL (65-115) H 06/21/25 05:42 POC Glucose 231 mg/dL (70-110) H 06/21/25 11:18 Estimat Average Glucose 197 06/21/25 05:42 Hemoglobin A1c 8.5 % (4.0-6.0) H 06/21/25 05:42 Calculated Osmolality 305 mOsm/kg (285-295) H 06/21/25 05:42 Calcium 8.9 mg/dL (8.5-10.5) 06/21/25 05:42 Total Bilirubin 0.3 mg/dL (0.15-1.2) 06/21/25 05:42 AST 20 U/L (0-40) 06/21/25 05:42 ALT 38 U/L (0-41) 06/21/25 05:42 Alkaline Phosphatase 83 U/L (40-130) 06/21/25 05:42 Total Protein 5.8 g/dL (6.6-8.7) L 06/21/25 05:42 Albumin 3.8 g/dL (3.5-5.2) 06/21/25 05:42 Globulin 2.0 g/dL (1.3-4.6) 06/21/25 05:42 Triglycerides 178 mg/dL (0-150) H 06/21/25 05:42 Cholesterol 169 mg/dL (0-200) 06/21/25 05:42 LDL Cholesterol, Calc 100 mg/dL (50-129) 06/21/25 05:42 HDL Cholesterol 33 mg/dL (60-100) L 06/21/25 05:42 LDL/HDL Ratio 3.03 RATIO (0.00-3.22) 06/21/25 05:42 Cholesterol/HDL Ratio 5.12 mg/dL (1.0-5.00) H 06/21/25 05:42 TSH 1.72 uIU/mL (0.27-4.20) 06/21/25 05:42 Urine Color Yellow (Yellow) 06/20/25 18:09 Urine Appearance Clear (CLEAR) 06/20/25 18:09 Urine pH 7.5 (5-7) 06/20/25 18:09 Ur Specific [place] 1.041 (1.005-1.030) H 06/20/25 18:09 Urine Protein Negative (Negative) 06/20/25 18:09 Urine Glucose (UA) Negative (Normal) 06/20/25 18:09 Urine Ketones Negative (Negative) 06/20/25 18:09 Urine Blood Negative (Negative) 06/20/25 18:09 Urine Nitrate Negative (Negative) 06/20/25 18:09 Urine Bilirubin Negative (Negative) 06/20/25 18:09 Urine Urobilinogen 1.0 mg/dL (Negative) 06/20/25 18:09 Ur Leukocyte Esterase Negative (Negative) 06/20/25 18:09 Urine RBC 0-2 /hpf (0-2) 06/20/25 18:09 Urine WBC 0-5 /hpf (0-5) 06/20/25 18:09 Ur Squamous Epith Cells 0-5 /hpf (0-5) 06/20/25 18:09 Amorphous Sediment Not Reportable 06/20/25 18:09 Urine Bacteria None seen /hpf (NONE) 06/20/25 18:09 Hyaline Casts 0-4 /lpf H 06/20/25 18:09 Urine Opiates Screen Negative ng/mL (Negative) 06/20/25 18:09 Ur Barbiturates Screen Negative ng/mL (Negative) 06/20/25 18:09 Ur Phencyclidine Scrn Negative ng/mL (Negative) 06/20/25 18:09 Ur Amphetamines Screen Negative ng/mL (Negative) 06/20/25 18:09 U Benzodiazepines Scrn Negative ng/mL (Negative) 06/20/25 18:09 Urine Cocaine Screen Negative ng/mL (Negative) 06/20/25 18:09 U Marijuana (THC) Screen Negative ng/mL (Negative) 06/20/25 18:09 Vitals Last Vital Signs Temp 97.5 F L 06/21/25 11:27 Pulse 65 06/21/25 11:27 Resp 15 06/21/25 11:27 BP 169/90 06/21/25 11:27 Pulse Ox 95 06/21/25 11:27 O2 Del Method Room Air 06/21/25 11:27 Discharge Plan Discharge Patient Disposition: Home Condition: Stable Prescriptions: New aspirin 81 mg Tablet,Delayed Release (Dr/Ec) 81 mg PO DAILY 30 Days Qty: 30 0RF clonidine HCl 0.1 mg tablet 0.1 mg PO BID PRN (Reason: hypertensive emergency) 30 Days Qty: 60 0RF Rx Instructions: sbp>180 or dbp>100 clopidogrel [Plavix] 75 mg tablet 75 mg PO DAILY 21 Days Qty: 21 0RF Rx Instructions: stop after 21 days Continued (DME) cpap Qty: 1 0RF Rx Instructions: As directed (DME) pen needle, diabetic [Comfort EZ Pen Connell] 31 gauge x 5/16 needle See Rx Instructions .Route Qty: 100 11RF Rx Instructions: As directed (DME) diabetic shoes with 3 inserts See Rx Instructions .Route .MEDSUPPLY Qty: 1 0RF Rx Instructions: As directed to the Alessia Arnold quetiapine 50 mg tablet 50 mg PO BEDTIME gabapentin 300 mg capsule See Rx Instructions .ROUTE .COMPLEX Qty: 150 5RF Patient Comments: Pt states he takes 600mg qhs Rx Instructions: Take 2 capsules in the morning and 2 capsules in the afternoon then 1 capsule at night lisinopril-hydrochlorothiazide 20-12.5 mg tablet 1 tab PO DAILY amlodipine 2.5 mg tablet 2.5 mg PO DAILY acetaminophen 325 mg capsule 325 mg PO QID PRN (Reason: Pain) (DME) Cam Boot See Rx Instructions .Route .MEDSUPPLY Qty: 1 0RF Rx Instructions: As directed by [facility] ([facility] pen needle, diabetic [1st Tier Unifine Pentips] 32 gauge x 5/32 needle See Rx Instructions .ROUTE .MEDSUPPLY Qty: 100 1RF Rx Instructions: 1 qid to give insulin (DME) Omnipod 5 G6 Intro Kit (Gen 5) Cartridge See Rx Instructions .ROUTE .MEDSUPPLY Qty: 1 0RF Rx Instructions: As directed (DME) Dexcom G7 Replanting Machine Crewman Misc See Rx Instructions .ROUTE .COMPLEX Qty: 1 0RF Dose Instruction: USE DIRECTED Rx Instructions: USE DIRECTED (DME) Omnipod 5 G6-G7 Pods (Gen 5) Cartridge See Rx Instructions .ROUTE .COMPLEX Qty: 5 6RF Dose Instruction: USE DIRECTED, CHANGE EVERY 3 DAYS Rx Instructions: USE DIRECTED, CHANGE EVERY 3 DAYS (DME) Dexcom G7 Sensor Device See Rx Instructions .ROUTE .COMPLEX Qty: 9 0RF Dose Instruction: CHANGE SENSOR EVERY 10 DAYS Rx Instructions: CHANGE SENSOR EVERY 10 DAYS insulin lispro 100 unit/mL solution See Rx Instructions .ROUTE .COMPLEX Qty: 130 0RF Dose Instruction: INJECT 150 UNITS PER DAY VIA INSULIN PUMP Rx Instructions: INJECT 150 UNITS PER DAY VIA INSULIN PUMP Symbicort 160-4.5 mcg/actuation HFA aerosol inhaler 2 puff INHALATION BID PRN (Reason: Shortness Of Breath) Discontinued meloxicam 15 mg tablet 15 mg PO DAILY Other Ambulatory Orders: MCT/Event Monitor 30 Days (Routine) Timeframe: 1 Day Facility: [facility] - Location: Radiology Ordered By: Kenyon Salmeron Referrals: Melba Green MD [Physician, Neurology] - 10/15/25 3:00 pm Corina Esqueda FNP [Primary Care Provider, Unknown] - 07/03/25 10:20 am Discharge Diet: Cardiac Discharge Activity: Resume usual activity Patient Instructions: Opioid Safety, Patient Portal & Jennifer Instructions Activity Restrictions/Additional Instructions: - For your statin intolerance, please follow-up with your primary care provider for consideration of PCSK9 inhibitors - If any recurrent strokelike symptoms call 911 - Follow-up with primary care - Follow-up with neurology - Follow-up with cardiology - Stop smoking Discharge Attestations Time Spent in Discharge Care*: greater than 30 min Quality Metrics Clinical Quality Measures [ Cerebrovascular Accident { Contraindication to Antithrombotic: None; antithrombotic prescribed; Contraindication to Anticoagulation: Overlap treatment not indicated; Contraindication to Statin: Drug intolerance;}] Coding Level of Care Code Acute Code for Chg Fwd Diagnoses Acute CVA (cerebrovascular accident) I63.9 Essential hypertension I10 Hypertension type: essential hypertension
--- OUTSIDE RECORDS SUMMARY | 2025-06-21 13:42 | XMS_ITS | Clinical Summary ---
Author Organization [facility] Address [address] [facility] Attn: [place] [address] Care Team Providers Care Zipper Machine Operator Name Role Phone Unavailable Primary Care Provider [...] Encounters Date Type Department Care Team Description 06/20/2025 External Device Data STL ABSTRACTION Provider, Abstract 06/12/2025 Orders Only [facility]- [place] [address] [facility] [address] [place] [id number] Corina Esqueda FNP Abdominal pain, unspecified abdominal location (Primary Dx) 05/30/2025 Abstract [facility] [address] [place] [phone] Janina Degroot from Last 3 Months Immunizations [...] on file Legal Sex Male 2:45 AM LIBRARIAN SPECIALIST Gender Identity Not on file Sexual Orientation Not on file Last Filed Vital Signs Vital Sign Reading Time Taken Comments Blood Pressure 147/85 09/21/2016 5:10 PM LIBRARIAN SPECIALIST Pulse 77 09/21/2016 5:10 PM LIBRARIAN SPECIALIST Temperature 36.9 C (98.4 F) 09/21/2016 5:10 PM LIBRARIAN SPECIALIST Respiratory Rate 18 09/21/2016 5:10 PM LIBRARIAN SPECIALIST Oxygen Saturation - - Inhaled Oxygen Concentration - - Weight 88.5 kg (195 lb) 09/21/2016 3:25 PM LIBRARIAN SPECIALIST Height 172.7 cm (5' 8 ) 09/21/2016 3:25 PM LIBRARIAN SPECIALIST Body Mass Index 29.65 09/21/2016 3:25 PM LIBRARIAN SPECIALIST Plan of Treatment Upcoming Encounters Date Type Department Care Team (Late st Contact Info) Description 07/27/2025 2:00 PM LIBRARIAN SPECIALIST Office Visit [facility] [address] [place] [address] Pablito Sandoval MD [address] [place] [phone] Health Maintenance Due Date Last Done Comments [...] (#1) 2025 Medical Devices Implanted Type Area Clam Dredger Device Identifier Shelf Expiration Date Model / Serial / Lot Bone Allcrft 8mm Douglas/Canc 6183-5-008 - [id number] Implanted:Qty : 1 on 11/24/2013 Bone Right: Spine Cervical Anterior [employer]ST[employer]O- SPINE 09/28/2017 [id number] / [id number] / ID:[id number] Plate Rflxhbrd 1lvl 14mm [id number] - Sload#[id number] Implanted:Qty : 1 on 11/24/2013 Plate Right: Spine Cervical Anterior [employer]- SPINE [id number] / LOAD#[id number] / NA Screw Rh Sd Va 4.0x14mm [id number] - Sload#[id number] Implanted:Qty : 4 on 11/24/2013 Screw Right: Spine Cervical Anterior [employer]- SPINE [id number] / LOAD#[id number] / NA Explanted Type Area Clam Dredger Device Identifier Shelf Expiration Date Model / Serial / Lot Reflex Hybrid Short Temporary Fixation Pin Explanted:Qty : 2 on 11/24/2013 by Lauren Horvath MD Right: Spine Cervical Anterior [employer]O- SPINE [id number] / LOAD#[id number] / NA Description:pricing per 11/24 invoice Insurance [facility] [place] [address]
--- OUTSIDE RECORDS SUMMARY | 2025-06-21 13:42 | XMS_ITS | Patient Health Record ---
Author Organization [facility] Address [address] [place] [address] Care Team Providers Care Watch Inspector Final Movement Name Role Phone Becky Dillon Primary Care Provider BECKY DILLON Unavailable Unavailable Allergies Allergen (clinical [...] day(s) 10/19/2022 Active Gabapentin *[facility]* Active OneTouch Delica Plus [id number] - Miscellaneous TEST BLOOD SUGAR FOUR TIMES [...] Active Novolog PenFill U-100 Insulin *[facility] and Interaction Alerts* Active Tylenol *[facility]* Active Albuterol Sulfate *[facility] strength-form [facility] for [facility]* Active SEROquel *Pick strength-form [facility] for [facility]* Active Meloxicam *[facility]* Active Levemir FlexTouch U100 Insulin *Reorder from [facility] for eRx and Interaction Alerts* Active Social [...] Status W/U Status Risk Notes Problem Neuropathy (767821338) Neuropathy (G62.9) Active confirmed Problem Type II diabetes mellitus without complication (099605605) Diabetes (E11.9) Active confirmed Problem Benign prostatic hyperplasia (107194505) BPH (benign prostatic hyperplasia) (N40.0) Active confirmed Problem Long-term current use of insulin (698849060) Current use of insulin (Z79.4) Active confirmed Plan Of Treatment No Information Insurance Providers Payer Name Payer Address Payer Phone Subscriber Number Group Number Insured Name Patient Relationship to Insured Coverage Start Date Coverage End Date [place] Medicaid [address] [place] [address] [id number] Will Lambert Self - patient is the insured Medical (General) History Surgical History Surgery Date(Month/Year) left knee surgery Neck Bone graft
--- OUTSIDE RECORDS SUMMARY | 2025-06-21 13:43 | XMS_ITS | Encounter Summary ---
Author Organization [facility] Address [address] [place] [address] Care Team Providers Care Independent Agent Music Education Name Role Phone Unavailable Primary Care Provider Unavailabl e Encounter Details Date Type Department Care Team (Late st Contact Info) Description 06/20/2025 External Device Data STL ABSTRACTION Provider, Abstract NO ADDRESS ON FILE Social History Tobacco Use Types Packs/Day Years Used Date Smoking Tobacco: Every Day Cigarettes Last attempted to quit: 01/15/2014 Smokeless Tobacco: Current Alcohol Use Standard Drinks/Week Comments No 0 (1 standard drink = 0.6 oz pur e alcohol) Sex and Gender Information Value Date Recorded Sex Assigned at Not on file Legal Sex Male 2:45 AM CONSULTANTS INTERN Gender Identity Not on file Sexual Orientation Not on file documented as of this encounter Plan of Treatment Upcoming Encounters Date Type Department Care Team (Late st Contact Info) Description 07/27/2025 2:00 PM CONSULTANTS INTERN Office Visit [facility] [address] [place] [address] Pablito Sandoval MD [address] [facility] [address] [place] [address] documented as of this encounter Visit Diagnoses Not on filedocumented in this encounter
== END 2025-06-21 16:46 | disposition home or self-care (01) ==
LOC: ER 16:55 → ER IP 23:57 → MEDSURG 06-21 09:56 → ER IP 06-21 13:40
PROVIDERS: Admitting Provider Family Medicine; Emergency Provider Emergency Medicine; PCP Nurse Practitioner Family; Visit Provider Family Medicine
DX: I63.9 Cerebral infarction, unspecified (principal); I10 Essential (primary) hypertension; R29.701 NIHSS score 1; E78.5 Hyperlipidemia, unspecified; E11.9 Type 2 diabetes mellitus without complications; G47.33 Obstructive sleep apnea (adult) (pediatric); Z99.89 Dependence on other enabling machines and devices; Z79.4 Long term (current) use of insulin; F33.9 Major depressive disorder, recurrent, unspecified; F41.8 Other specified anxiety disorders; F17.210 Nicotine dependence, cigarettes, uncomplicated
CPT/HCPCS: 36415; 36416; 70450; 70496; 70498; 80053; 80061; 80306; 81001; 82962; 83036; 84443; 85025; 85610; 85730; 93005; 93306; 94664; 96361; 96372; 96374; 96375; 97116; 97161; 99285; G0378; J0360; J1650; J1815; J2470; J7030; J9999

== ENCOUNTER 2025-07-13 07:50 | Oncology outpatient (recurring) (ONCR) | payer BC, MEDICAID, SELFPAY ==
[2024-03-17 10:40] VITALS: BP 118/73; BMI 23.8
--- NOTE | 2025-07-13 08:01 | US_ITS ---
WS: [id number] Complete ABDOMINAL ULTRASOUND HISTORY: POLYCYTHEMIA/THROMBOCYTOPENIA COMPARISON: None available. Liver: 14.8 cm in length. Normal size liver and echogenicity. No bile duct dilatation or mass. Portal Vein: Normal hepatopetal flow with monophasic waveform. Gallbladder: Normally distended gallbladder with no stones or wall thickening. CBD: 0.3 cm Pancreas: Normal size and echogenicity. Right kidney: 10.9 cm x 5.3 x 5.6 cm. Cortex:1.5 cm. Normal size and echogenicity. No hydronephrosis or mass. Left kidney: 11.0 cm x 4.5 cm x 4.6 cm. Cortex: 1.2 cm. Normal size and echogenicity. No hydronephrosis or mass. Spleen: 11.6 cm. Normal size and echogenicity. Aorta and IVC: Unremarkable abdominal aorta and IVC. US/US abdomen complete* [id number] Impression: Normal complete abdomen ultrasound. Normal sized spleen.
== END 2025-07-22 23:59 | disposition home or self-care (01) ==
LOC: ONCMED 07:54
PROVIDERS: PCP Nurse Practitioner Family; Visit Provider Internal Medicine Medical Oncology
DX: F17.200 Nicotine dependence, unspecified, uncomplicated (principal)
CPT/HCPCS: 76700